=== PATIENT | female | born 1995 | race Caucasian/White ===

== ENCOUNTER → 2016-10-26 | Outpatient (CLI) | payer OTHER | LOC: OD 11:42 | PROVIDERS: ATTEND Obstetrics & Gynecology | DX: J11.1 Influenza due to unidentified influenza virus with other respiratory manifestations (principal); R70.0 Elevated erythrocyte sedimentation rate | CPT/HCPCS: 87070; 87804; 87880 ==

== ENCOUNTER 2016-10-31 17:36 | Outpatient (CLI) | payer OTHER ==
[2016-10-31 18:24] LABS: AMORPHOUS SEDIMENT,URINE TRACE /HPF; APPEARANCE,URINE CLOUDY; BILIRUBIN,URINE NEGATIVE (NEGATIVE); GLUCOSE, URINE NEGATIVE (NEGATIVE); KETONES,URINE TRACE mg/dL (NEGATIVE); LEUKOCYTE ESTERASE,URINE MODERATE (NEGATIVE); NITRITE,URINE NEGATIVE (NEGATIVE); PROTEIN,URINE NEGATIVE (NEGATIVE); URINE SPECIFIC GRAVITY 1.016
[2016-10-31 18:34] LABS: URINE BARBITURATES SCREEN NEGATIVE; URINE METHADONE SCREEN NEGATIVE; URINE OPIATES LOW NEGATIVE; URINE PHENCYCLIDINE SCREEN NEGATIVE
[2016-10-31 18:48] LABS: AMNISURE (ROM) NEGATIVE (NEGATIVE)
--- NOTE | 2016-10-31 20:01 | L&D Flow Sheet ---
LD Flowsheet Datetime Report Generated by CPN: 10/31/2016 20:00 Datetime: 10/31/2016 19:32 Patient Care IV/Blood Work: IV Started; IV Bolus Started (Marta Alberto, RN) Patient Care Comments: 18G left forearm (Marta Alberto, RN) Datetime: 10/31/2016 19:30 Uterine Activity Monitor Mode: External; Palpation (Marta Marlatt, RN) Frequency (min): 2-8 (Marta Marlatt, RN) Quality: Mild/Moderate (Marta Marlatt, RN) Duration (sec): 80-300 (Marta Marlatt, RN) Resting Tone (Palpate): Relaxed (Marta Marlatt, RN) Assessment A Monitor Mode: External US (Marta Marlatt, RN) FHR Baseline Rate : 140 (Marta Marlatt, RN) Variability: Moderate 6-25 bpm (Marta Marlatt, RN) Accelerations: 15X15 (Marta Marlatt, RN) Decelerations: None (Marta Alberto, RN) Datetime: 10/31/2016 19:29 Communication Communication: Call/Page Placed to Provider (Marta Alberto RN) Provider Notified (Name): Dr. Andrade (Marta Alberto RN) Notification Reason: Lab/Diagnostic Study (Marta Alberto RN) Communication Comments: MD reviewed ultrasound. Received order to hang her IV fluids and provider will recheck cervix after 2 hrs after first exam (Marta Alberto RN) Datetime: 10/31/2016 18:46 Uterine Activity Monitor Mode: External; Palpation (Marta Marlatt, RN) Frequency (min): 5 (Marta Marlatt, RN) Quality: Mild/Moderate (Marta Marlatt, RN) Duration (sec): 80-80 (Marta Marlatt, RN) Resting Tone (Palpate): Relaxed (Marta Marlatt, RN) Assessment A Monitor Mode: External US (Marta Marlatt, RN) FHR Baseline Rate : 135 (Marta Marlatt, RN) Variability: Moderate 6-25 bpm (Marta Marlatt, RN) Accelerations: 15X15 (Marta Marlatt, RN) Decelerations: None (Marta Marlatt, RN) Comments: monitors discontinued, patient to ultrasound (Marta Marlatt, RN) Datetime: 10/31/2016 18:42 NBP Sys/Cara/Mean (mmHg): 101 (QS system process) : 58 (QS system process) : 73 (QS system process) Pulse: 86 (QS system process) LaborFlag: Antepartum (QS system process) Datetime: 10/31/2016 18:35 Communication Communication: Provider Orders Received (Marta Alberto RN) Provider Notified (Name): Dr. Andrade (Marta Alberto RN) Notification Reason: Status Update; Status; Labor Status; Uterine Activity (Marta Marlatt, RN) Communication Comments: Order received for IVONNE and cervical length, IV bolus of 1L LR, and send urine for culture (Martaezra Alberto, RN) Datetime: 10/31/2016 18:34 Vaginal Exam Exam by: Dr. Andrade (Marta Alberto, RN) Vaginal Exam Comments: closed/thick/high (Marta Alberto, RN) Communication Communication: RN at Bedside; Provider at Bedside (Marta Alberto, RN) Datetime: 10/31/2016 18:30 Uterine Activity Monitor Mode: External (Marta Marlatt, RN) Frequency (min): 3-5 (Marta Marlatt, RN) Quality: Mild (Marta Marlatt, RN) Duration (sec): 100-140 (Marta Marlatt, RN) Resting Tone (Palpate): Relaxed (Marta Marlatt, RN) Assessment A Monitor Mode: External US (Marta Marlatt, RN) FHR Baseline Rate : 135 (Marta Marlatt, RN) Variability: Moderate 6-25 bpm (Marta Alberto, RN) Accelerations: 15X15 (Marta Alberto, RN) Decelerations: None (Mrata Alberto, RN) Datetime: 10/31/2016 18:20 Frequency (min): unknown (Marta Cassycoleenwally, RN) Pain Pain Scale: 2 (Marta Alberto RN) Pain Presence: Intermittent (Marta Alberto, RN) Pain Type: Cramping; Contraction (Marta Alberto, RN) Pain Location: Abdomen (Marta Alberto, RN) Pain Goal: 0 (Marta Alberto RN) Pain Coping: Talking Through Contractions (Marta Alberto, RN) Vaginal Bleeding: None (Marta Alberto, RN) Maternal Assessment Level of Consciousness: Fully Conscious (Marta Bowlestt, RN) DTR's/Clonus: DTRs 2+; No Clonus (Marta Marlatt, RN) Headache: Denies (Marta Maderalatt, RN) Breath Sounds, Left: Clear and Equal (Marta Marlatt, RN) Breath Sounds, Right: Clear and Equal (Marta Marlatt, RN) Nausea/Vomiting: Denies (Marta Marlatt, RN) RUQ Epigastric Pain: Denies (Marta Marlatt, RN) Teaching Instructional Method: Demo; Verbal; Patient Instructed; Family/Support Person Instructed; Verbalized Understanding (Marta Alberto RN) Plan of Care: Plan of Care Discussed (Marta Alberto RN) Unit Routine: [place] to Room; Call Jenkins; Bed; Monitoring (Marta Alberto RN) LaborFlag: Antepartum (QS system process) Datetime: 10/31/2016 18:11 NBP Sys/Cara/Mean (mmHg): 106 (QS system process) : 66 (QS system process) : 81 (QS system process) Pulse: 77 (QS system process) LaborFlag: Antepartum (QS system process) Datetime: 10/31/2016 18:07 Vital Signs Stage of : Antepartum (Marta Alberto, RN)
--- NOTE | 2016-10-31 21:05 | Non Stress Test Report ---
Non Stress Test Datetime Report Generated by CPN: 10/31/2016 21:05 DEMOGRAPHIC EGA NST: 33.5 INDICATION Indication for Study: Other Indication for Study (NST) Other: LC MONITORING Monitor Explained: Monitor Explained; Test Explained; Patient Verbalized Understanding Time on Monitor: 10/31/2016 19:18 Time off Monitor: 10/31/2016 20:50 NST Duration: 92 NST INTERVENTIONS NST Interventions: PO Hydration; IV Fluids Physician Notified NST: Dr. Andrade BABY A: [id number] BABY A Movement : Present Contraction Frequency : 3-10 FHR Baseline : 135 Accelerations : 15X15 Decelerations : None Variability : Moderate 6-25bpm NST Review: Meets Criteria for Reactive NST NST Review and Verified By : Milady Muhammad Rn NST Results: Reactive NST REPORT Report Trigger: Send Report
== END 2016-10-31 21:01 | disposition home or self-care (01) ==
LOC: LC 17:36
PROVIDERS: ATTEND Student in an Organized Health Care Education/Training Program
PROC: 4A1HXCZ Monitoring of Products of Conception, Cardiac Rate, External Approach (ICD-10-PCS; principal; 2016-10-31)
DX: O47.03 False labor before 37 completed weeks of gestation, third trimester (principal); Z3A.33 33 weeks gestation of pregnancy
CPT/HCPCS: 59025; 76815; 80307; 81001; 84112; 87086

== ENCOUNTER 2016-11-23 05:23 | Inpatient (IN) | payer OTHER ==
[2016-11-23 06:06] LABS: APPEARANCE,URINE CLOUDY; BILIRUBIN,URINE NEGATIVE (NEGATIVE); GLUCOSE, URINE NEGATIVE (NEGATIVE); KETONES,URINE NEGATIVE (NEGATIVE); LEUKOCYTE ESTERASE,URINE LARGE (NEGATIVE); NITRITE,URINE NEGATIVE (NEGATIVE); PROTEIN,URINE 30 mg/dL (NEGATIVE); URINE SPECIFIC GRAVITY 1.024; UROBILINOGEN,URINE NEGATIVE mg/dL (<2.0)
[2016-11-23 06:15] LABS: AMNISURE (ROM) POSITIVE (NEGATIVE)
[2016-11-23 06:27] LABS: URINE BARBITURATES SCREEN NEGATIVE; URINE METHADONE SCREEN NEGATIVE; URINE OPIATES LOW NEGATIVE; URINE PHENCYCLIDINE SCREEN NEGATIVE
[2016-11-23] MEDS ORDERED: RINGERS SOLUTION,LACTATED 1,000 ML IV ONE (06:31)
[2016-11-23 07:00] LABS: ABSOLUTE LYMPHOCYTES (AUTO) 1.6 10^3/uL (0.5-4.7); ABSOLUTE MONOCYTES (AUTO) 0.8 10^3/uL (0.1-1.4); ABSOLUTE NEUT (AUTO) 5.8 10^3/uL (1.7-8.2); BASOPHILS % (AUTO) 0.4 % (0-2); EOSINOPHILS % (AUTO) 0.5 % (0-6); HEMATOCRIT 37.7 % (36.0-47.0); HEMOGLOBIN 13.1 g/dL (12.0-15.5); HGB HCT DIFFERENCE 1.6; LYMPHOCYTES % (AUTO) 19.3 % (13-45); MEAN CORPUSCULAR HEMOGLOBIN 30.9 pg (27.0-33.4); MEAN CORPUSCULAR HGB CONC 34.8 g/dL (32.0-36.0); MEAN CORPUSCULAR VOLUME 89 fl (80-97); RED BLOOD COUNT 4.26 10^6/uL (3.72-5.28); RED CELL DISTRIBUTION WIDTH 12.5 % (11.5-14.0); SEGMENTED NEUTROPHILS % (AUTO) 69.8 % (42-78); WHITE BLOOD COUNT 8.4 10^3/uL (4.0-10.5)
[2016-11-23] MEDS ORDERED: MISOPROSTOL 0.1 MG TABLET PV SCH (07:00)
[2016-11-23] MEDS ORDERED: MISOPROSTOL 0.1 MG TABLET ONE ×2 (07:16→12:01)
[2016-11-23] MEDS: MISOPROSTOL 0.1 MG TABLET PO SCH ×3 (07:26→22:58)
--- NOTE | 2016-11-23 08:00 | L&D Flow Sheet ---
LD Flowsheet Datetime Report Generated by CPN: 11/23/2016 08:00 Datetime: 11/23/2016 07:46 NBP Sys/Cara/Mean (mmHg): 121 (QS system process) : 82 (QS system process) : 95 (QS system process) Pulse: 82 (QS system process) LaborFlag: Antepartum (QS system process) Datetime: 11/23/2016 07:17 NBP Sys/Cara/Mean (mmHg): 128 (QS system process) : 72 (QS system process) : 92 (QS system process) Pulse: 83 (QS system process) Respirations: 16 (Karmen Pickering RN) Temperature (F): 98.4 (Karmen Pickering RN) Temperature (C): 36.9 (QS system process) Temperature Route: Oral (Karmen Pickering RN) LaborFlag: Antepartum (QS system process) Datetime: 11/23/2016 07:12 Communication Communication: Report Given to @ Report given to Jamil Pickering . [facility] relinquished (Tara Menard RN) Datetime: 11/23/2016 07:00 Uterine Activity Monitor Mode: External; Palpation (Rucsandra Derian, RN) Frequency (min): 2-7 (Rucsandra Derian, RN) Quality: Mild/Moderate (Rucsandra Derian, RN) Duration (sec): 60-110 (Rucsandra Derian, RN) Resting Tone (Palpate): Relaxed (Rucsandra Derian, RN) Assessment A Monitor Mode: External US (Rucsandra Derian, RN) FHR Baseline Rate : 150 (Rucsandra Derian, RN) Variability: Moderate 6-25 bpm (Rucsandra Derian, RN) Accelerations: 15X15 (Rucsandra Derian, RN) Decelerations: None (Rucsandra Derian, RN) Datetime: 11/23/2016 06:50 Patient Care IV/Blood Work: IV Started; IV Infusing per Order; New IV Bag Hung (Tara Menard, RN) Patient Care Comments: 18G IV in RFA x3 attempts, pt tolerated well. (Tara Menard, RN) Datetime: 11/23/2016 06:47 Patient Care IV/Blood Work: Labs Drawn (Rucsandra Derian, RN) Datetime: 11/23/2016 06:42 Maternal Comments: lab at bedside for admission lab draws. (Rucsandra Derian, RN) Datetime: 11/23/2016 06:41 Maternal Comments: Consent forms signed and witnessed. (Rucsandra Derian, RN) Datetime: 11/23/2016 06:30 Uterine Activity Monitor Mode: External; Palpation (Rucsandra Derian, RN) Frequency (min): 7-10 (Rucsandra Derian, RN) Quality: Mild/Moderate (Rucsandra Derian, RN) Duration (sec): 70-160 (Rucsandra Derian, RN) Resting Tone (Palpate): Relaxed (Rucsandra Derian, RN) Assessment A Monitor Mode: External US (Rucsandra Derian, RN) FHR Baseline Rate : 140 (Rucsandra Derian, RN) Variability: Moderate 6-25 bpm (Rucsandra Derian, RN) Accelerations: 15X15 (Rucsandra Derian, RN) Decelerations: None (Rucsandra Derian, RN) Datetime: 11/23/2016 06:26 Maternal Comments: cephalic presentation confirmed by ultrasound by Dr. Beatty. (Rucsandra Derian, RN) Datetime: 11/23/2016 06:18 Vaginal Exam Dilatation (cm): 0.0 (Hermancsandra CorderoDerian, RN) Effacement (%): 0 (Rucsandra Derian, RN) Exam by: Dr. Beatty (Rucsandra Derian, RN) Datetime: 11/23/2016 06:16 NBP Sys/Cara/Mean (mmHg): 124 (QS system process) : 81 (QS system process) : 98 (QS system process) Pulse: 76 (QS system process) Communication Comments: Dr Beatty at bedside, strip reviewed. POC discussed with pt, pt agrees and V/U. (Tara Menard RN) LaborFlag: Antepartum (QS system process) Datetime: 11/23/2016 06:00 Uterine Activity Monitor Mode: External; Palpation (Tara Menard RN) Frequency (min): x1 (Tara Menard RN) Quality: Mild (Rucsandra Derian, RN) Duration (sec): 90 (Rucsandra Derian, RN) Resting Tone (Palpate): Relaxed (Rucsandra Derian, RN) Assessment A Monitor Mode: External US (Rucsandra Derian, RN) FHR Baseline Rate : 145 (Rucsandra Derian, RN) Variability: Moderate 6-25 bpm (Rucsandra Derian, RN) Accelerations: 15X15 (Rucsandra Derian, RN) Decelerations: None (Rucsandra Derian, RN) Datetime: 11/23/2016 05:50 Frequency (min): irregular (Rucsandra Derian, RN) Pain Pain Scale: 1 (Rurainaandra Menard, RN) Pain Presence: Intermittent (Rucsandra Derian, RN) Pain Type: Cramping (Rucsandra Derian, RN) Pain Location: Abdomen (Rucsandra Derian, RN) Pain Goal: 1 (Rucsandra Derian, RN) Pain Coping: Talking Through Contractions (Annotations: pt talking without difficulty. No signs of distress noted. ) (Rucsandra Derian, RN) Vaginal Bleeding: None (Rucsandra Derian, RN) Maternal Assessment Level of Consciousness: Fully Conscious (Rucsandra Derian, RN) DTR's/Clonus: DTRs 2+; No Clonus (Rucsandra Derian, RN) Headache: Denies (Rucsandra Derian, RN) Breath Sounds, Left: Clear and Equal (Rucsandra Derian, RN) Breath Sounds, Right: Clear and Equal (Rucsandra Derian, RN) Nausea/Vomiting: Present (Rucsandra Derian, RN) RUQ Epigastric Pain: Denies (Rucsandra Derian, RN) LaborFlag: Antepartum (QS system process) Datetime: 11/23/2016 05:49 Patient Care Comments: Amnisure collected and sent to lab (Tara Menard, RN) Datetime: 11/23/2016 05:46 NBP Sys/Cara/Mean (mmHg): 118 (QS system process) : 81 (QS system process) : 94 (QS system process) Pulse: 83 (QS system process) Temperature (F): 98.1 (Tara Menard, RN) Temperature (C): 36.7 (QS system process) LaborFlag: Antepartum (QS system process) Datetime: 11/23/2016 05:44 Patient Position/Activity: Left Lateral (Tara Menard, RN) Datetime: 11/23/2016 05:43 Vital Signs Stage of : Antepartum (Tara Menard, RN)
--- NOTE | 2016-11-23 10:00 | L&D Flow Sheet ---
LD Flowsheet Datetime Report Generated by CPN: 11/23/2016 10:00 Datetime: 11/23/2016 09:30 Monitor Mode: External US (Karmen Marhefka, RN) FHR Baseline Rate : 150 (Karmen Marhefka, RN) FHR Baseline Changes: No Baseline Change (Karmen Marhefka, RN) Variability: Moderate 6-25 bpm (Karmen Marhefka, RN) Accelerations: 15X15 (Karmen Marhefka, RN) Decelerations: None (Karmen Marhefka, RN) Datetime: 11/23/2016 09:05 Patient Care Comments: Pt walking @ bedside (Karmen Ladan, RN) Datetime: 11/23/2016 09:02 I/O Interventions: Up to BR (Karmen Ladan, RN) Datetime: 11/23/2016 09:01 IV/Blood Work: IV Saline Locked (Karmen Ladan, RN) Datetime: 11/23/2016 09:00 Monitor Mode: External US (Karmen Marhefka, RN) FHR Baseline Rate : 145 (Karmen Marhefka, RN) FHR Baseline Changes: No Baseline Change (Karmen Marhefka, RN) Variability: Moderate 6-25 bpm (Karmen Marhefka, RN) Accelerations: 15X15 (Karmen Marhefka, RN) Decelerations: None (Karmen Marhefka, RN) Datetime: 11/23/2016 08:47 NBP Sys/Cara/Mean (mmHg): 121 (QS system process) : 79 (QS system process) : 96 (QS system process) Pulse: 75 (QS system process) LaborFlag: Antepartum (QS system process) Datetime: 11/23/2016 08:36 Pain Assessment Comments: Heat pack provided to pt upon request for back cramping. (Karmen Marhefka, RN) LaborFlag: Antepartum (QS system process) Datetime: 11/23/2016 08:30 Monitor Mode: External (Karmen Marhefka, RN) Frequency (min): 1-5 (Karmen Marhefka, RN) Quality: Mild (Karmen Marhefka, RN) Duration (sec): 40-150 (Karmen Marhefka, RN) Resting Tone (Palpate): Relaxed (Karmen Marhefka, RN) Monitor Mode: External US (Karmen Marhefka, RN) FHR Baseline Rate : 145 (Karmen Marhefka, RN) FHR Baseline Changes: No Baseline Change (Karmen Marhefka, RN) Variability: Moderate 6-25 bpm (Karmen Marhefka, RN) Accelerations: 15X15 (Karmen Marhefka, RN) Decelerations: None (Karmen Marhefka, RN) Datetime: 11/23/2016 08:18 NBP Sys/Cara/Mean (mmHg): 133 (QS system process) : 85 (QS system process) : 104 (QS system process) Pulse: 83 (QS system process) LaborFlag: Antepartum (QS system process) Datetime: 11/23/2016 08:00 Monitor Mode: External (Karmen Pickering, RN) Frequency (min): 1-6 (Karmen Pickering RN) Quality: Mild (Karmen Pickering, RN) Duration (sec): 40-160 (Karmen Pickering, RN) Resting Tone (Palpate): Relaxed (Karmen Pickering, RN) Monitor Mode: External US (Karmen Pickering, RN) FHR Baseline Rate : 145 (Karmen Pickering RN) FHR Baseline Changes: No Baseline Change (Karmen Pickering, RN) Variability: Moderate 6-25 bpm (Karmen Pickering, RN) Accelerations: 15X15 (Karmen Pickering, RN) Decelerations: None (Karmen Pickering, RN)
--- NOTE | 2016-11-23 12:00 | L&D Flow Sheet ---
LD Flowsheet Datetime Report Generated by CPN: 11/23/2016 12:00 Datetime: 11/23/2016 11:30 Monitor Mode: External (Karmen Marhefka, RN) Frequency (min): 1-2 (Karmen Marhefka, RN) Quality: Mild (Karmen Marhefka, RN) Duration (sec): 40-70 (Karmen Marhefka, RN) Pattern: Tachysystole: > 5 Contractions in 10 Minutes (Karmen Marhefka, RN) Resting Tone (Palpate): Relaxed (Karmen Marhefka, RN) Monitor Mode: External US (Karmen Marhefka, RN) FHR Baseline Rate : 150 (Karmen Marhefka, RN) FHR Baseline Changes: No Baseline Change (Karmen Marhefka, RN) Variability: Moderate 6-25 bpm (Karmen Marhefka, RN) Accelerations: 15X15 (Karmen Marhefka, RN) Decelerations: None (Karmen Marhefka, RN) Datetime: 11/23/2016 11:00 Monitor Mode: External (Karmen Marhefka, RN) Frequency (min): 30-90 (Karmen Marhefka, RN) Quality: Mild (Karmen Marhefka, RN) Duration (sec): 1-2 (Karmen Marhefka, RN) Pattern: Tachysystole: > 5 Contractions in 10 Minutes (Karmen Marhefka, RN) Resting Tone (Palpate): Relaxed (Karmen Marhefka, RN) Monitor Mode: External US (Karmen Marhefka, RN) FHR Baseline Rate : 150 (Karmen Marhefka, RN) FHR Baseline Changes: No Baseline Change (Karmen Marhefka, RN) Variability: Moderate 6-25 bpm (Karmen Marhefka, RN) Accelerations: 15X15 (Karmen Marhefka, RN) Decelerations: None (Karmen Marhefka, RN) Datetime: 11/23/2016 10:30 Respirations: 18 (Coco Guadalupe RNC) Temperature (F): 98.9 (Coco Guadalupe RNC) Temperature (C): 37.2 (QS system process) Monitor Mode: External (Karmen Marhefka, RN) Frequency (min): 1-2 (Karmen Marhefka, RN) Quality: Mild (Karmen Marhefka, RN) Duration (sec): 40-70 (Karmen Marhefka, RN) Pattern: Tachysystole: > 5 Contractions in 10 Minutes (Karmen Marhefka, RN) Resting Tone (Palpate): Relaxed (Karmen Marhefka, RN) Monitor Mode: External US (Karmen Marhefka, RN) FHR Baseline Rate : 155 (Karmen Marhefka, RN) FHR Baseline Changes: No Baseline Change (Karmen Marhefka, RN) Variability: Moderate 6-25 bpm (Karmen Marhefka, RN) Accelerations: 15X15 (Karmen Marhefka, RN) Decelerations: None (Karmen Marhefka, RN) IV/Blood Work: IV Bolus Started (CARMEN Vergara) LaborFlag: Antepartum (QS system process) Datetime: 11/23/2016 10:00 Monitor Mode: External (Karmen Marhefka, RN) Frequency (min): 1-2 (Karmen Marhefka, RN) Quality: Mild (Karmen Marhefka, RN) Duration (sec): 40-80 (Karmen Marhefka, RN) Pattern: Tachysystole: > 5 Contractions in 10 Minutes (Karmen Marhefka, RN) Resting Tone (Palpate): Relaxed (Karmen Marhefka, RN) Monitor Mode: External US (Karmen Marhefka, RN) FHR Baseline Rate : 155 (Karmen Pickering RN) FHR Baseline Changes: No Baseline Change (Karmen Pickering RN) Variability: Moderate 6-25 bpm (Karmen Pickering RN) Accelerations: 15X15 (Karmen Pickering RN) Decelerations: None (Karmen Pickering RN)
[2016-11-23] MEDS ORDERED: ONDANSETRON HCL INJ/PF 4 MG/2 ML SDV ONE (13:08)
[2016-11-23] MEDS ORDERED: NALBUPHINE HCL INJ 10 MG/1 ML AMPULE ONE (13:08)
[2016-11-23] MEDS ORDERED: ONDANSETRON HCL INJ/PF 4 MG/2 ML SDV IV ONE (13:24)
[2016-11-23] MEDS ORDERED: NALBUPHINE HCL INJ 10 MG/1 ML AMPULE INJ ONE (13:24)
--- NOTE | 2016-11-23 14:00 | L&D Flow Sheet ---
LD Flowsheet Datetime Report Generated by CPN: 11/23/2016 14:00 Datetime: 11/23/2016 13:16 NBP Sys/Cara/Mean (mmHg): 118 (QS system process) : 57 (QS system process) : 82 (QS system process) Pulse: 82 (QS system process) LaborFlag: Antepartum (QS system process) Datetime: 11/23/2016 13:13 Analgesics/Sedatives: Nubain (mg) @ 10 (Karmen Pickering RN) Antiemetics/Antacids: Zofran IV (mg) @ 4 (Karmen Pickering RN) Datetime: 11/23/2016 13:10 Pain Scale: 3 (Karmen Pickering RN) Pain Presence: Intermittent (Karmen Pickering RN) Pain Type: Cramping; Ache (Karmen Pickering RN) Pain Location: Abdomen; Back (Karmen Pickering RN) Pain Relief Measures: Comfort Measures (Karmen Pickering RN) Pain Coping: Talking Through Contractions; Requesting Pain Medication or Epidural (Karmen Pickering RN) Comfort Measures: Breathing/Relaxation (Karmen Pickering RN) LaborFlag: Antepartum (QS system process) Datetime: 11/23/2016 13:00 Monitor Mode: External; Palpation (Karmen Pickering RN) Frequency (min): 1-3 (Karmen Pickering RN) Quality: Mild (Karmen Pickering RN) Duration (sec): 40-70 (Karmen Marhefka, RN) Pattern: Tachysystole: > 5 Contractions in 10 Minutes (Karmen Marraulfka, RN) Resting Tone (Palpate): Relaxed (Karmencris Hillfka, RN) Monitor Mode: External US (Karmen Pickering, RN) FHR Baseline Rate : 140 (Karmen Marhefka, RN) FHR Baseline Changes: No Baseline Change (Karmen Marhefka, RN) Variability: Moderate 6-25 bpm (Karmen Marhefka, RN) Accelerations: 15X15 (Karmen Marhefka, RN) Decelerations: None (Karmen Marhefka, RN) Datetime: 11/23/2016 12:30 Temperature (F): 99.0 (Karmen Pickering, RN) Temperature (C): 37.2 ( system process) Temperature Route: Oral (Karmen Lizfka, RN) Monitor Mode: External (Karmen Hillfka, RN) Frequency (min): 1-3 (Karmen Lizfka, RN) Quality: Mild (Karmen Marhefka, RN) Duration (sec): 40-110 (Karmen Marhefka, RN) Pattern: Tachysystole: > 5 Contractions in 10 Minutes (Karmen Marhefka, RN) Resting Tone (Palpate): Relaxed (Karmen Lizfka, RN) Monitor Mode: External US (Karmen Pickering, RN) FHR Baseline Rate : 140 (Karmen Marhefka, RN) FHR Baseline Changes: No Baseline Change (Karmen Marhefka, RN) Variability: Moderate 6-25 bpm (Karmen Marhefka, RN) Accelerations: 15X15 (Karmen Marhefka, RN) Decelerations: None (Karmen Pickering RN) LaborFlag: Antepartum (QS system process) Datetime: 11/23/2016 12:06 NBP Sys/Cara/Mean (mmHg): 123 (QS system process) : 73 (QS system process) : 92 (QS system process) Pulse: 75 (QS system process) LaborFlag: Antepartum (QS system process) Datetime: 11/23/2016 12:04 Exam by: Dr. Beatty (Karmen Pickering RN) Vaginal Exam Comments: 1/thick/high (Karmen Pickering RN) Cervical Ripening Agents: Cytotec @ 25 MCG PV (Karmen Pickering RN) Datetime: 11/23/2016 12:00 Monitor Mode: External (Karmen Pickering RN) Frequency (min): 1-2 (Karmen Pickering RN) Quality: Mild (Karmen Pickering RN) Duration (sec): 40-70 (Karmen Pickering RN) Pattern: Tachysystole: > 5 Contractions in 10 Minutes (Karmen Pickering RN) Resting Tone (Palpate): Relaxed (Karmen Pickering RN) Monitor Mode: External US (Karmen Pickering RN) FHR Baseline Rate : 145 (Karmen Pickering RN) FHR Baseline Changes: No Baseline Change (Karmen Pickering RN) Variability: Moderate 6-25 bpm (Karmen Pickering RN) Accelerations: 15X15 (Karmen Pickering RN) Decelerations: None (Karmen Pickering RN)
--- NOTE | 2016-11-23 16:00 | L&D Flow Sheet ---
LD Flowsheet Datetime Report Generated by CPN: 11/23/2016 16:00 Datetime: 11/23/2016 15:30 Monitor Mode: External (Karmen Marhefka, RN) Frequency (min): 1-3 (Karmen Marhefka, RN) Quality: Mild (Karmen Marhefka, RN) Duration (sec): 40-100 (Karmen Marhefka, RN) Pattern: Tachysystole: > 5 Contractions in 10 Minutes (Karmen Marhefka, RN) Resting Tone (Palpate): Relaxed (Karmen Marhefka, RN) Monitor Mode: External US (Karmen Marhefka, RN) FHR Baseline Rate : 120 (Karmen Marhefka, RN) FHR Baseline Changes: No Baseline Change (Karemn Marhefka, RN) Variability: Moderate 6-25 bpm (Karmen Marhefka, RN) Accelerations: 15X15 (Karmen Marhefka, RN) Decelerations: None (Karmen Marhefka, RN) Datetime: 11/23/2016 15:00 Monitor Mode: External (Karmen Marhefka, RN) Frequency (min): 1-3 (Karmen Marhefka, RN) Quality: Mild (Karmen Marhefka, RN) Duration (sec): 40-90 (Karmen Marhefka, RN) Pattern: Tachysystole: > 5 Contractions in 10 Minutes (Karmen Marhefka, RN) Resting Tone (Palpate): Relaxed (Karmen Marhefka, RN) Monitor Mode: External US (Karmen Marhefka, RN) FHR Baseline Rate : 125 (Karmen Marhefka, RN) FHR Baseline Changes: No Baseline Change (Karmen Marhefka, RN) Variability: Moderate 6-25 bpm (Karmen Marhefka, RN) Accelerations: None (Karmen Marhefka, RN) Decelerations: None (Karmen Marhefka, RN) Datetime: 11/23/2016 14:30 Monitor Mode: External (Karmen Marhefka, RN) Frequency (min): 1-3 (Karmen Marhefka, RN) Quality: Mild (Karmen Lizfka, RN) Duration (sec): 40-70 (Karmen Lizfka, RN) Pattern: Tachysystole: > 5 Contractions in 10 Minutes (Karmne Hillfka, RN) Resting Tone (Palpate): Relaxed (Karmen Hillfka, RN) Monitor Mode: External US (Karmen Pickering, RN) FHR Baseline Rate : 125 (Karmen Pickering, RN) FHR Baseline Changes: No Baseline Change (Karmen Hillfka, RN) Variability: Moderate 6-25 bpm (Karmen Marraulfka, RN) Accelerations: 15X15 (Karmen Marhefka, RN) Decelerations: None (Karmen Marraulfka, RN) Datetime: 11/23/2016 14:23 Monitor Interventions for UA: [place] Adjusted (Karmen Pickering, RN) Monitor Interventions for FHR: Ultrasound Adjusted (Karmen Hillfka, RN) Datetime: 11/23/2016 14:18 Patient Care Comments: Pt standing at bedside (Karmen Pickering, RN) Datetime: 11/23/2016 14:14 I/O Interventions: Up to BR (Karmen Pickering, RN) Datetime: 11/23/2016 14:13 NBP Sys/Cara/Mean (mmHg): 119 (QS system process) : 57 (QS system process) : 82 (QS system process) Pulse: 62 (QS system process) LaborFlag: Antepartum (QS system process) Datetime: 11/23/2016 14:10 Cervical Ripening Agents: Cytotec @ 50 MCG PO (Karmen Pickering RN) Datetime: 11/23/2016 14:00 Monitor Mode: External; Palpation (Karmen Pickering RN) Frequency (min): 1-3 (Karmen Pickering RN) Quality: Mild (Karmen Pickering RN) Duration (sec): 40-70 (Karmen Pickering RN) Pattern: Tachysystole: > 5 Contractions in 10 Minutes (Karmen Pickering RN) Resting Tone (Palpate): Relaxed (Karmen Pickering RN) Monitor Mode: External US (Karmen Pickering RN) FHR Baseline Rate : 130 (Karmen Pickering RN) FHR Baseline Changes: No Baseline Change (Karmen Pickering RN) Variability: Moderate 6-25 bpm (Karmen Pickering RN) Accelerations: 15X15 (Karmen Pickering RN) Decelerations: None (Karmen Pickering RN)
[2016-11-23] MEDS ORDERED: EPHEDRINE SULFATE INJ 50 MG/1 ML AMPULE ONE (17:03)
[2016-11-23] MEDS ORDERED: BUPIVACAINE HCL 0.25 % INJ/PF (2.5 MG/1 ML) 30 ML VIAL ONE (17:03)
[2016-11-23] MEDS ORDERED: FENTANYL/BUPIVACAINE/NS/PF 200 MCG/100 ML RTUINJ EPI ONE (17:03)
[2016-11-23] MEDS ORDERED: BUPIVACAINE HCL 0.25 % INJ/PF (2.5 MG/1 ML) 30 ML VIAL INFIL ONE (17:04)
[2016-11-23] MEDS ORDERED: FENTANYL/BUPIVACAINE/NS/PF 100 ML EPI PRN (17:04)
[2016-11-23] MEDS ORDERED: BENZOIN/ALOE VERA/STORAX/TOLU TINCTURE 60 ML TP PRN (17:04)
[2016-11-23] MEDS: RINGERS SOLUTION,LACTATED 1,000 ML IV PRN (17:12)
--- NOTE | 2016-11-23 18:00 | L&D Flow Sheet ---
LD Flowsheet Datetime Report Generated by CPN: 11/23/2016 18:00 Datetime: 11/23/2016 17:47 NBP Sys/Cara/Mean (mmHg): 108 (QS system process) : 57 (QS system process) : 77 (QS system process) Pulse: 71 (QS system process) LaborFlag: Antepartum (QS system process) Datetime: 11/23/2016 17:46 NBP Sys/Cara/Mean (mmHg): 113 (QS system process) : 55 (QS system process) : 77 (QS system process) Pulse: 69 (QS system process) LaborFlag: Antepartum (QS system process) Datetime: 11/23/2016 17:45 NBP Sys/Cara/Mean (mmHg): 115 (QS system process) : 60 (QS system process) : 80 (QS system process) Pulse: 65 (QS system process) LaborFlag: Antepartum (QS system process) Datetime: 11/23/2016 17:44 NBP Sys/Cara/Mean (mmHg): 112 (QS system process) : 53 (QS system process) : 77 (QS system process) Pulse: 65 (QS system process) LaborFlag: Antepartum (QS system process) Datetime: 11/23/2016 17:42 NBP Sys/Cara/Mean (mmHg): 119 (QS system process) NBP Sys/Cara/Mean (mmHg): 111 (QS system process) : 63 (QS system process) : 56 (QS system process) : 85 (QS system process) : 80 (QS system process) Pulse: 71 (QS system process) I/O Interventions: Egan Cath Inserted (Karmen Pickering RN) LaborFlag: Antepartum (QS system process) Datetime: 11/23/2016 17:40 NBP Sys/Cara/Mean (mmHg): 111 (QS system process) : 55 (QS system process) : 79 (QS system process) Pulse: 88 (QS system process) LaborFlag: Antepartum (QS system process) Datetime: 11/23/2016 17:39 NBP Sys/Cara/Mean (mmHg): 115 (QS system process) : 56 (QS system process) : 80 (QS system process) Pulse: 80 (QS system process) LaborFlag: Antepartum (QS system process) Datetime: 11/23/2016 17:38 NBP Sys/Cara/Mean (mmHg): 120 (QS system process) NBP Sys/Cara/Mean (mmHg): 125 (QS system process) : 59 (QS system process) : 58 (QS system process) : 84 (QS system process) : 83 (QS system process) Pulse: 70 (QS system process) Pulse: 72 (QS system process) LaborFlag: Antepartum (QS system process) Datetime: 11/23/2016 17:37 NBP Sys/Cara/Mean (mmHg): 121 (QS system process) : 56 (QS system process) : 79 (QS system process) Pulse: 80 (QS system process) LaborFlag: Antepartum (QS system process) Datetime: 11/23/2016 17:36 NBP Sys/Cara/Mean (mmHg): 116 (QS system process) : 76 (QS system process) : 91 (QS system process) Pulse: 77 (QS system process) LaborFlag: Antepartum (QS system process) Datetime: 11/23/2016 17:34 NBP Sys/Cara/Mean (mmHg): 126 (QS system process) : 73 (QS system process) : 93 (QS system process) Pulse: 76 (QS system process) LaborFlag: Antepartum (QS system process) Datetime: 11/23/2016 17:33 NBP Sys/Cara/Mean (mmHg): 124 (QS system process) : 82 (QS system process) : 97 (QS system process) Pulse: 75 (QS system process) Epidural Procedure: Cath Placed (Karmen Pickering RN) LaborFlag: Antepartum (QS system process) Datetime: 11/23/2016 17:32 NBP Sys/Cara/Mean (mmHg): 128 (QS system process) : 85 (QS system process) : 102 (QS system process) Pulse: 71 (QS system process) Epidural Procedure: Test Dose (Karmen Pickering RN) LaborFlag: Antepartum (QS system process) Datetime: 11/23/2016 17:30 Procedure Verify: Correct Patient Identity; Correct Side and Site are Marked; Accurate Procedure Consent Form; Agreement on Procedure to be Done; Correct Patient Position; Relevant Images and Results are Properly Labeled and Displayed; Addressed Need to Administer Antibiotics or Fluids for Irrigation; Safety Precautions Based on Patient History or Medication Use (Karmen Pickering RN) Anesthesia Plans: Epidural (Karmne Pickering RN) Epidural Positioning: Sitting (Karmen Pickering RN) Datetime: 11/23/2016 17:29 Pulse: 76 (QS system process) SpO2 (%): 99 (QS system process) LaborFlag: Antepartum (QS system process) Datetime: 11/23/2016 17:28 Procedure Verify: Correct Patient Identity; Correct Side and Site are Marked; Accurate Procedure Consent Form; Agreement on Procedure to be Done; Correct Patient Position; Relevant Images and Results are Properly Labeled and Displayed; Addressed Need to Administer Antibiotics or Fluids for Irrigation; Safety Precautions Based on Patient History or Medication Use (Karmen Pickering RN) Anesthesia Plans: Epidural (Karmen Pickering RN) Epidural Positioning: Sitting (Karmen Pickering RN) Datetime: 11/23/2016 17:26 Anesthesia Comments: Dr. Costa @ bedside (Karmen Pickering RN) Datetime: 11/23/2016 17:24 Procedure Verify: Correct Patient Identity; Correct Side and Site are Marked; Accurate Procedure Consent Form; Agreement on Procedure to be Done; Correct Patient Position; Relevant Images and Results are Properly Labeled and Displayed; Addressed Need to Administer Antibiotics or Fluids for Irrigation; Safety Precautions Based on Patient History or Medication Use (Karmen Pickering RN) Anesthesia Plans: Epidural (Karmen Pickering RN) Epidural Positioning: Sitting (Karmen Pickering RN) Datetime: 11/23/2016 17:04 NBP Sys/Cara/Mean (mmHg): 133 (QS system process) : 87 (QS system process) : 105 (QS system process) Pulse: 66 (QS system process) LaborFlag: Antepartum (QS system process) Datetime: 11/23/2016 16:51 Pain Scale: 4 (Karmen Pickering RN) Pain Presence: Intermittent (Karmen Pickering RN) Pain Type: Contraction (Karmen Pickering RN) Pain Location: Abdomen (Karmen Pickering RN) Pain Goal: 0 (Karmen Pickering RN) Pain Relief Measures: Comfort Measures (Karmen Pickering RN) Pain Coping: Breathing Through Contractions; Requesting Pain Medication or Epidural; Crying (Karmen Pickering RN) IV/Blood Work: IV Bolus Started (Karmen Pickering RN) Comfort Measures: Breathing/Relaxation (Karmen Pickering RN) LaborFlag: Antepartum (QS system process) Datetime: 11/23/2016 16:44 Dilatation (cm): 1.5 (Karmen Pickering RN) Effacement (%): 75 (Karmen Pickering RN) Station: -2 (Karmen Pickering RN) Exam by: Dr. Beatty (Karmen Pickering RN) Vaginal Bleeding: Scant (Karmen Pickering RN) Cervix, Consistency: Soft (Karmen Pickering RN) Cervix, Position: Midposition (Karmen Pickering, RN) Datetime: 11/23/2016 16:09 NBP Sys/Cara/Mean (mmHg): 114 (QS system process) : 74 (QS system process) : 89 (QS system process) Pulse: 65 (QS system process) LaborFlag: Antepartum (QS system process) Datetime: 11/23/2016 16:00 Monitor Mode: External (Karmen Pickering RN) Frequency (min): 1-5 (Karmen Pickering RN) Quality: Mild (Karmen Pickering RN) Duration (sec): 40-60 (Karmen Pickeirng RN) Pattern: Tachysystole: > 5 Contractions in 10 Minutes (Karmen Pickering RN) Resting Tone (Palpate): Relaxed (Karmen Pickering RN) Monitor Mode: External US (Karmen Pickering RN) FHR Baseline Rate : 125 (Karmen Pickering RN) FHR Baseline Changes: No Baseline Change (Karmen Pickering RN) Variability: Moderate 6-25 bpm (Karmen Pickering RN) Accelerations: None (Karmen Pickering RN) Decelerations: None (Karmen Pickering RN)
[2016-11-23] MEDS ORDERED: OXYTOCIN/NORMAL SALINE 20 UNIT/1,000 ML RTUINJ ONE (18:20)
--- NOTE | 2016-11-23 20:00 | L&D Flow Sheet ---
LD Flowsheet Datetime Report Generated by CPN: 11/23/2016 20:00 Datetime: 11/23/2016 19:55 I/O Interventions: Popsicle (Rucsandra Derian, RN) Datetime: 11/23/2016 19:49 NBP Sys/Cara/Mean (mmHg): 105 (QS system process) : 68 (QS system process) : 82 (QS system process) Pulse: 70 (QS system process) LaborFlag: Antepartum (QS system process) Datetime: 11/23/2016 19:45 Monitor Mode: External; Palpation (Rucsandra Derian, RN) Frequency (min): 1.5-2 (Rucsandra Derian, RN) Quality: Mild/Moderate (Rucsandra Derian, RN) Duration (sec): 50-80 (Rucsandra Derian, RN) Resting Tone (Palpate): Relaxed (Rucsandra Derian, RN) Monitor Mode: External US (Rucsandra Derian, RN) FHR Baseline Rate : 145 (Rucsandra Derian, RN) Variability: Moderate 6-25 bpm (Rucsandra Derian, RN) Accelerations: None (Rucsandra Derian, RN) Decelerations: None (Rucsandra Derian, RN) Datetime: 11/23/2016 19:43 Maternal Comments: [place] emptied 500ml of clear yellow urine. (Rucsandra Derian, RN) Datetime: 11/23/2016 19:36 Patient Position/Activity: Left Lateral (Tara Menard, RN) Datetime: 11/23/2016 19:33 NBP Sys/Cara/Mean (mmHg): 102 (QS system process) : 58 (QS system process) : 75 (QS system process) Pulse: 66 (QS system process) LaborFlag: Antepartum (QS system process) Datetime: 11/23/2016 19:30 Temperature (F): 98.0 (Tara Menard RN) Temperature (C): 36.7 (QS system process) Monitor Mode: External; Palpation (Tara Menard RN) Frequency (min): 1-2.5 (Tara Menard RN) Quality: Mild/Moderate (Tara Menard RN) Duration (sec): 50-90 (Tara Menard RN) Resting Tone (Palpate): Relaxed (Tara Menard RN) Monitor Mode: External US (Tara Menard RN) FHR Baseline Rate : 145 (Tara Menard RN) Variability: Moderate 6-25 bpm (Tara Menard RN) Accelerations: None (Tara Menard RN) Decelerations: None (Tara Menard RN) Level of Consciousness: Fully Conscious (Tara Menard RN) DTR's/Clonus: DTRs 1+; No Clonus (Tara Menard RN) Headache: Denies (Tara Menard RN) Breath Sounds, Left: Clear and Equal (Tara Menard RN) Breath Sounds, Right: Clear and Equal (Tara Menard RN) Nausea/Vomiting: Denies (Tara Menard RN) RUQ Epigastric Pain: Denies (Tara Menard RN) Pitocin (milliunit): Pitocin Remains (milliunits) @ 2 (Tara Menard RN) LaborFlag: Antepartum (QS system process) Datetime: 11/23/2016 19:18 NBP Sys/Cara/Mean (mmHg): 107 (QS system process) : 63 (QS system process) : 80 (QS system process) Pulse: 65 (QS system process) LaborFlag: Antepartum (QS system process) Datetime: 11/23/2016 19:15 Monitor Mode: External (Karmen Marhefka, RN) Frequency (min): 1-3 (Karmen Marhefka, RN) Quality: Mild (Karmen Marhefka, RN) Duration (sec): 50-100 (Karmen Marhefka, RN) Resting Tone (Palpate): Relaxed (Karmen Marhefka, RN) Monitor Mode: External US (Karmen Marhefka, RN) FHR Baseline Rate : 140 (Karmen Marhefka, RN) FHR Baseline Changes: No Baseline Change (Karmen Marhefka, RN) Variability: Moderate 6-25 bpm (Karmen Marhefka, RN) Accelerations: None (Karmen Marhefka, RN) Decelerations: Late (Karmen Marhefka, RN) Pitocin (milliunit): Pitocin Remains (milliunits) @ (Annotations: 2) (Karmen Marhefka, RN) Datetime: 11/23/2016 19:14 Communication Comments: Report given to A. Derian, RN. Care relinquished @ this time. (Karmen Pickering RN) Datetime: 11/23/2016 19:04 NBP Sys/Cara/Mean (mmHg): 103 (QS system process) : 58 (QS system process) : 78 (QS system process) Pulse: 66 (QS system process) LaborFlag: Antepartum (QS system process) Datetime: 11/23/2016 19:00 Monitor Mode: External (Karmen Pickering RN) Frequency (min): 1-4 (Karmen Pickering RN) Quality: Mild (Karmen Pickering RN) Duration (sec): 60-100 (Karmen Pickering RN) Resting Tone (Palpate): Relaxed (Karmen Pickering RN) Monitor Mode: External US (Karmen Pickering RN) FHR Baseline Rate : 140 (Karmen Pickering RN) FHR Baseline Changes: No Baseline Change (Karmen Pickering RN) Variability: Moderate 6-25 bpm (Karmen Marhefka, RN) Accelerations: None (Karmen Marhefka, RN) Decelerations: Late (Karmen Lizfka, RN) Pitocin (milliunit): Pitocin Remains (milliunits) @ (Annotations: 2) (Karmen Marraulfka, RN) Datetime: 11/23/2016 18:49 NBP Sys/Cara/Mean (mmHg): 111 (QS system process) : 70 (QS system process) : 85 (QS system process) Pulse: 68 (QS system process) LaborFlag: Antepartum (QS system process) Datetime: 11/23/2016 18:45 Monitor Mode: External (Karmen Pickering RN) Frequency (min): 1-3 (Karmen Pickering RN) Quality: Mild (Karmen Huntka, RN) Duration (sec): 40-110 (Karmen Pickering, RN) Resting Tone (Palpate): Relaxed (Karmen Pickering RN) Monitor Mode: External US (Karmen Marhefka, RN) FHR Baseline Rate : 135 (Karmen Marhefka, RN) FHR Baseline Changes: No Baseline Change (Kramen Marhefka, RN) Variability: Moderate 6-25 bpm (Karmen Marhefka, RN) Accelerations: None (Karmen Marhefka, RN) Decelerations: None (Karmen Marhefka, RN) Pitocin (milliunit): Pitocin Remains (milliunits) @ (Annotations: 2) (Kamren Marhefka, RN) Datetime: 11/23/2016 18:34 NBP Sys/Cara/Mean (mmHg): 108 (QS system process) : 59 (QS system process) : 79 (QS system process) Pulse: 67 (QS system process) LaborFlag: Antepartum (QS system process) Datetime: 11/23/2016 18:30 Monitor Mode: External (Karmen Marhefka, RN) Frequency (min): 1-2 (Karmen Marhefka, RN) Quality: Mild (Karmen Marhefka, RN) Duration (sec): 60-110 (Karmen Marhefka, RN) Resting Tone (Palpate): Relaxed (Karmen Marhefka, RN) Monitor Mode: External US (Karmen Marhefka, RN) FHR Baseline Rate : 140 (Karmen Marhefka, RN) FHR Baseline Changes: No Baseline Change (Karmen Marhefka, RN) Variability: Moderate 6-25 bpm (Karmen Marhefka, RN) Accelerations: None (Karmen Marhefka, RN) Decelerations: None (Karmen Marhefka, RN) Datetime: 11/23/2016 18:25 Pitocin (milliunit): Pitocin Started (milliunits) @ 2 (Karmen Marhefka, RN) Datetime: 11/23/2016 18:19 NBP Sys/Cara/Mean (mmHg): 104 (QS system process) : 65 (QS system process) : 78 (QS system process) Pulse: 65 (QS system process) Respirations: 16 (Karmen Marhefka, RN) Temperature (F): 97.6 (Karmen Marhefka, RN) Temperature (C): 36.4 (QS system process) Temperature Route: Oral (Karmen Marhefka, RN) LaborFlag: Antepartum (QS system process) Datetime: 11/23/2016 18:15 Monitor Mode: External (Karmen Marhefka, RN) Frequency (min): 1-3 (Karmen Marhefka, RN) Quality: Mild/Moderate (Karmen Marhefka, RN) Duration (sec): 50-100 (Karmen Marhefka, RN) Resting Tone (Palpate): Relaxed (Karmen Marhefka, RN) Monitor Mode: External US (Karmen Marhefka, RN) FHR Baseline Rate : 125 (Karmen Marhefka, RN) FHR Baseline Changes: No Baseline Change (Karmen Marhefka, RN) Variability: Moderate 6-25 bpm (Karmen Marhefka, RN) Accelerations: None (Karmen Marhefka, RN) Decelerations: None (Karmen Marhefka, RN) Datetime: 11/23/2016 18:08 Patient Position/Activity: Right Lateral; Peanut Ball; Low Fowlers (Karmen Pickering, RN) Datetime: 11/23/2016 18:04 NBP Sys/Cara/Mean (mmHg): 122 (QS system process) : 71 (QS system process) : 91 (QS system process) Pulse: 71 (QS system process) LaborFlag: Antepartum (QS system process) Datetime: 11/23/2016 18:03 Patient Care Comments: [place] bulb inserted by Dr. Beatty (Karmen Hillavi, RN) Datetime: 11/23/2016 18:02 Membrane Status: Ruptured (Karmen Pickering RN) Membranes Rupture Method: Artificial (Karmen Pickering RN) Amniotic Fluid Color: Clear (Karmen Pickering RN) Amniotic Fluid Amount: Large (Karmen Pickering RN) Membrane Comments: forebag ruptured by Dr. Beatty (Karmen Pickering RN) Datetime: 11/23/2016 18:00 Frequency (min): 1-3 (Karmen Pickering RN) Quality: Mild (Karmen Pickering RN) Duration (sec): 50-100 (Karmen Pickering RN) Pattern: Tachysystole: > 5 Contractions in 10 Minutes (Karmen Pickering RN) Resting Tone (Palpate): Relaxed (Karmen Pickering RN) Monitor Mode: External US (Karmen Pickering RN) FHR Baseline Rate : 120 (Karmen Pickering RN) FHR Baseline Changes: No Baseline Change (Karmen Pickering RN) Variability: Moderate 6-25 bpm (Karmen Pickering RN) Accelerations: None (Karmen Pickering RN) Decelerations: None (Karmen Pickering RN)
[2016-11-23] MEDS ORDERED: CEFAZOLIN 1 GM/D5W RTU 1 GM/50 ML RTUPB IV SCH (22:00)
--- NOTE | 2016-11-23 22:00 | L&D Flow Sheet ---
LD Flowsheet Datetime Report Generated by CPN: 11/23/2016 22:00 Datetime: 11/23/2016 21:49 NBP Sys/Cara/Mean (mmHg): 112 (QS system process) : 72 (QS system process) : 86 (QS system process) Pulse: 62 (QS system process) LaborFlag: Antepartum (QS system process) Datetime: 11/23/2016 21:45 Monitor Mode: External; Palpation (Tara Menard RN) Frequency (min): 1-1.5 (Tara Menard RN) Quality: Mild/Moderate (Tara Menard RN) Duration (sec): 40-60 (Tara Menard RN) Resting Tone (Palpate): Relaxed (Tara Menard RN) Monitor Mode: External US (Tara Menard RN) FHR Baseline Rate : 145 (Tara Menard RN) Variability: Moderate 6-25 bpm (Tara Menard RN) Accelerations: None (Tara Menard RN) Pitocin (milliunit): Pitocin Remains (milliunits) @ (Annotations: 8) (Tara Menard RN) Datetime: 11/23/2016 21:36 Maternal Comments: family at bedside, pt denies needs. (Tara Menard RN) Datetime: 11/23/2016 21:33 NBP Sys/Cara/Mean (mmHg): 113 (QS system process) : 74 (QS system process) : 88 (QS system process) Pulse: 64 (QS system process) LaborFlag: Antepartum (QS system process) Datetime: 11/23/2016 21:30 Monitor Mode: External; Palpation (Tara Menard RN) Frequency (min): 1-2 (Tara Menard, RN) Quality: Mild/Moderate (Tara Menard, RN) Duration (sec): 40-90 (Tara Menard RN) Resting Tone (Palpate): Relaxed (Tara Menard, RN) Monitor Mode: External US (Tara Menard, RN) FHR Baseline Rate : 135 (Tara Menard, RN) Variability: Moderate 6-25 bpm (Tara Menard, RN) Accelerations: 10X10 (Tara Menard, RN) Decelerations: None (Tara Menard, RN) Pitocin (milliunit): Pitocin Remains (milliunits) @ (Annotations: 8 ) (Tara Menard, RN) Datetime: 11/23/2016 21:26 Temperature (F): 98.2 (Rucsandra Derian, RN) Temperature (C): 36.8 (QS system process) LaborFlag: Antepartum (QS system process) Datetime: 11/23/2016 21:24 I/O Interventions: Clear Liquids Given (Tara Menard, RN) Datetime: 11/23/2016 21:20 NBP Sys/Cara/Mean (mmHg): 121 (QS system process) : 72 (QS system process) : 91 (QS system process) Pulse: 67 (QS system process) LaborFlag: Antepartum (QS system process) Datetime: 11/23/2016 21:18 NBP Sys/Cara/Mean (mmHg): 115 (QS system process) : 78 (QS system process) : 91 (QS system process) Pulse: 68 (QS system process) LaborFlag: Antepartum (QS system process) Datetime: 11/23/2016 21:15 Monitor Mode: External; Palpation (Tara Menard, RN) Frequency (min): 1.5-2.5 (Tara Menard, RN) Quality: Mild/Moderate (Tara Menard, RN) Duration (sec): 40-70 (Rucsandra Menard, RN) Resting Tone (Palpate): Relaxed (Tara Menard, RN) Monitor Mode: External US (Tara Menard, RN) FHR Baseline Rate : 140 (Hermancsandra Menard, RN) Variability: Moderate 6-25 bpm (Taylorandra Menard, RN) Accelerations: None (Tara Menard, RN) Decelerations: None (Tara Menard, RN) Pitocin (milliunit): Pitocin Increased to (milliunits) @ 8 (Tara Menard, RN) Datetime: 11/23/2016 21:08 Monitor Interventions for UA: [place] Adjusted (Tara Menard, GONZALES) Datetime: 11/23/2016 21:03 NBP Sys/Cara/Mean (mmHg): 120 (QS system process) : 73 (QS system process) : 92 (QS system process) Pulse: 62 (QS system process) LaborFlag: Antepartum (QS system process) Datetime: 11/23/2016 21:00 Monitor Mode: External; Palpation (Tara Menard RN) Frequency (min): 1.5-5 (Tara Menard RN) Quality: Mild/Moderate (Tara Menard RN) Duration (sec): 40-60 (Tara Menard RN) Resting Tone (Palpate): Relaxed (Tara Menard RN) Monitor Mode: External US (Rucsandra Derian, RN) FHR Baseline Rate : 140 (Tara Menard, RN) Variability: Moderate 6-25 bpm (Tara Menard, RN) Accelerations: None (Tara Menard, RN) Decelerations: None (Tara Menard, RN) Pitocin (milliunit): Pitocin Remains (milliunits) @ (Annotations: 6) (Tara Menard RN) Datetime: 11/23/2016 20:48 NBP Sys/Cara/Mean (mmHg): 117 (QS system process) : 74 (QS system process) : 90 (QS system process) Pulse: 65 (QS system process) LaborFlag: Antepartum (QS system process) Datetime: 11/23/2016 20:45 Monitor Mode: External; Palpation (Tara Menard RN) Frequency (min): 2-5 (Tara Menard RN) Quality: Mild/Moderate (Tara Menard RN) Duration (sec): 40-120 (Rucsandra Derian, RN) Resting Tone (Palpate): Relaxed (Tara Menadr, RN) Monitor Mode: External US (Tara Menard, RN) FHR Baseline Rate : 140 (Tara Menard, RN) Variability: Moderate 6-25 bpm (Tara Menard, RN) Accelerations: None (Hermanrainahector Menard, RN) Decelerations: None (Hermanrainaandra Menard, RN) Pitocin (milliunit): Pitocin Remains (milliunits) @ (Annotations: 6 ) (Tara Menard, RN) Datetime: 11/23/2016 20:35 Monitor Interventions for UA: [place] Adjusted (Tara Derian, RN) Datetime: 11/23/2016 20:33 NBP Sys/Cara/Mean (mmHg): 120 (QS system process) : 74 (QS system process) : 92 (QS system process) Pulse: 65 (QS system process) LaborFlag: Antepartum (QS system process) Datetime: 11/23/2016 20:30 Monitor Mode: External; Palpation (Rucsandra Derian, RN) Frequency (min): 1.5-3 (Rucsandra Derian, RN) Quality: Mild/Moderate (Rucsandra Derian, RN) Duration (sec): 60-80 (Rucsandra Derian, RN) Resting Tone (Palpate): Relaxed (Rucsandra Derian, RN) Monitor Mode: External US (Rucsandra Derian, RN) FHR Baseline Rate : 140 (Rucsandra Derian, RN) Variability: Moderate 6-25 bpm (Rucsandra Derian, RN) Accelerations: 10X10 (Rucsandra Derian, RN) Decelerations: None (Rucsandra Derian, RN) Pitocin (milliunit): Pitocin Increased to (milliunits) @ 6 (Rucsandra Derian, RN) Datetime: 11/23/2016 20:28 Communication Comments: Dr Beatty at bedside, strip reviewed. (Rucsandra Derian, RN) Datetime: 11/23/2016 20:26 Monitor Interventions for UA: [place] Adjusted (Tara Menard, RN) Datetime: 11/23/2016 20:19 NBP Sys/Cara/Mean (mmHg): 120 (QS system process) : 74 (QS system process) : 93 (QS system process) Pulse: 67 (QS system process) LaborFlag: Antepartum (QS system process) Datetime: 11/23/2016 20:15 Monitor Mode: External; Palpation (Tara Menard RN) Frequency (min): 1-3.5 (Tara Menard RN) Quality: Mild/Moderate (Tara Menard RN) Duration (sec): 60-80 (Tara Menard RN) Resting Tone (Palpate): Relaxed (Tara Menard RN) Monitor Mode: External US (Tara Menard RN) FHR Baseline Rate : 140 (Tara Menard RN) Variability: Moderate 6-25 bpm (Tara Menard RN) Accelerations: None (Tara Menard RN) Decelerations: None (Tara Menard RN) Pitocin (milliunit): Pitocin Remains (milliunits) @ (Annotations: 4 ) (Tara Menard RN) Datetime: 11/23/2016 20:08 Communication Comments: Dr Beatty on unit, strip reviewed. Advised of pitocin at 4 milliunits/min. No new orders. (Tara Menard RN) Datetime: 11/23/2016 20:03 NBP Sys/Cara/Mean (mmHg): 112 (QS system process) : 68 (QS system process) : 83 (QS system process) Pulse: 77 (QS system process) LaborFlag: Antepartum (QS system process) Datetime: 11/23/2016 20:00 Monitor Mode: External; Palpation (Tara Menard RN) Frequency (min): 1-4 (Tara Menard RN) Quality: Mild/Moderate (Tara Menard RN) Duration (sec): 60-80 (Tara Menard RN) Resting Tone (Palpate): Relaxed (Tara Menard RN) Monitor Mode: External US (Tara Menard RN) FHR Baseline Rate : 145 (Tara Menard RN) Variability: Moderate 6-25 bpm (Tara Menard RN) Accelerations: None (Tara Menard RN) Decelerations: None (Tara Menard RN) Pitocin (milliunit): Pitocin Increased to (milliunits) @ 4 (Tara Menard RN)
[2016-11-23] MEDS ORDERED: CEFAZOLIN 1 GM/D5W RTU 1 GM/50 ML RTUPB IV ONE (22:12)
[2016-11-23] MEDS: MISOPROSTOL 0.1 MG TABLET PV SCH (22:57)
[2016-11-24] MEDS: MISOPROSTOL 0.1 MG TABLET PV SCH ×2 (00:45→00:47)
[2016-11-24] MEDS: RINGERS SOLUTION,LACTATED 1,000 ML IV PRN (00:47)
[2016-11-24] MEDS: MISOPROSTOL 0.1 MG TABLET PO SCH (00:47)
[2016-11-24] MEDS ORDERED: LIDOCAINE 2% INJ-PF (20 MG/ML) 10 ML AMPUL ONE ×2 (01:43→02:12)
[2016-11-24] MEDS ORDERED: CITRIC ACID/SODIUM CITRATE ORAL SOLN 15 ML UDCUP ONE (02:10)
[2016-11-24] MEDS ORDERED: CEFAZOLIN 1 GM/D5W RTU 1 GM/50 ML RTUPB IV ONE (02:10)
[2016-11-24] MEDS ORDERED: FENTANYL CITRATE INJ/PF 100 MCG/2 ML AMPUL ONE (02:25)
[2016-11-24] MEDS ORDERED: MIDAZOLAM 2 MG/2 ML INJ ONE (02:25)
[2016-11-24] MEDS ORDERED: EPHEDRINE SULFATE INJ 50 MG/1 ML AMPULE ONE (02:25)
[2016-11-24] MEDS ORDERED: FENTANYL CITRATE INJ/PF 250 MCG/5 ML AMPULE ONE (02:25)
[2016-11-24] MEDS ORDERED: OXYTOCIN 10 UNIT/ML VIAL ONE (02:25)
[2016-11-24] MEDS ORDERED: OXYTOCIN/NORMAL SALINE 20 UNIT/1,000 ML RTUINJ ONE ×2 (02:26→04:32)
[2016-11-24] MEDS ORDERED: ONDANSETRON HCL INJ/PF 4 MG/2 ML SDV ONE (02:26)
[2016-11-24] MEDS ORDERED: BUPIVACAINE HCL 0.5 % INJ/PF 30 ML SDV ONE (02:27)
[2016-11-24] MEDS ORDERED: MORPHINE SULFATE INJ PF 10 MG/10 ML SDV ONE (02:30)
[2016-11-24] MEDS ORDERED: BUPIVACAINE INJ/PF LIPOSOME/PF 266 MG/20 ML SDV ONE (02:37)
[2016-11-24] MEDS ORDERED: MEPERIDINE HCL/PF INJ 25 MG/1 ML DISP.SYRIN IV PRN (03:35)
[2016-11-24] MEDS ORDERED: FENTANYL CITRATE INJ/PF 100 MCG/2 ML AMPUL IV PRN ×3 (03:35)
[2016-11-24] MEDS ORDERED: DIPHENHYDRAMINE HCL 50 MG/ML VIAL IV PRN (03:35)
[2016-11-24] MEDS ORDERED: PROMETHAZINE HCL INJ 25 MG/1 ML VIAL IV PRN (03:35)
[2016-11-24] MEDS ORDERED: OXYTOCIN/NORMAL SALINE 1,000 ML IV PRN (03:55)
[2016-11-24] MEDS ORDERED: MORPHINE SULFATE 10 MG/ML INJ IV PRN (03:55)
[2016-11-24] MEDS ORDERED: SIMETHICONE 80 MG TAB.CHEW PO PRN (03:55)
[2016-11-24] MEDS ORDERED: ACETAMINOPHEN 325 MG TABLET PO PRN (03:55)
[2016-11-24] MEDS ORDERED: DIPH/PERTUSS(ACELL)/TETANUS VAC/PF 0.5 ML SYR (>=10YO) IM PRN (03:55)
[2016-11-24] MEDS ORDERED: MEASLES,MUMPS&RUBELLA VACC/PF 0.5 ML VIAL SUBCUT PRN (03:55)
[2016-11-24] MEDS ORDERED: ACETAMINOPHEN 100 ML IV PRN (03:55)
[2016-11-24] MEDS ORDERED: ONDANSETRON HCL 8 MG TABLET PO PRN (03:58)
[2016-11-24] MEDS ORDERED: MEPERIDINE HCL/PF INJ 25 MG/1 ML DISP.SYRIN ONE (03:58)
[2016-11-24] MEDS ORDERED: CEFAZOLIN SODIUM 1 GM in DEXTROSE 5%-WATER 50 ML IV PRN (04:00)
[2016-11-24] MEDS ORDERED: MORPHINE SULFATE 10 MG/ML INJ ONE (04:46)
[2016-11-24] MEDS: MORPHINE SULFATE 10 MG/ML INJ IV PRN ×3 (04:48→05:42)
--- NOTE | 2016-11-24 05:33 | Delivery Summary ---
Del Sum A-C Datetime Report Generated by CPN: 11/24/2016 05:33 ADMISSION DATA Chief Complaint: Uterine Contractions; Suspected Ruptured Membranes Indication for Induction: PROM Admission Impression: Term, Intrauterine ; No Active Labor; Ruptured Membranes Admit Provider Comments: amnisure positive. cervix very unfavorable. requiring significant cervical ripening. will begin with cytotec PO and PV and switch to cervidil if no results. May have epidural with active labor and IV pain meds as needed prior. May have light breakfast/lunch until active labor. GBS negative. Will start ABX when ruptured >18 hours. DELIVERY PERSONNEL Delivery Doctor:: Bertha Beatty MD SPECIAL EDUCATION INSTRUCTOR:: Maynor Lamb CRNA Labor and Delivery Nurse:: Tara Menard RN Neonatal Nurse Practitioner:: CHRISTIANO Duran Nursery Nurse:: Cydney Rich RN Nursery Nurse:: Mallory Pedro RN Shipping And Receiving Supervisor/DIRECTOR OF SPEECH PATHOLOGY: Jeanne Moon, Shipping And Receiving Supervisor/DIRECTOR OF SPEECH PATHOLOGY: Isatu Hendrix, OIL FURNACE INSTALLER Additional Personnel: : Leopoldo Medina CNA MATERNAL INFORMATION Delivery Anesthesia: Epidural Medications After Delivery: Pitocin Bolus-Please Comment; Pitocin Drip 20 Units/1000ml NSS Meds After Delivery Comment: 20 units pitocin after placenta delivery Estimated Blood Loss (ml): 600 Maternal Complications: Prolonged Labor > 20 Hrs; Other Other Maternal Complications: prolonged rupture of membranes LABOR SUMMARY EDC: 12/14/2016 00:00 No. Babies in Womb: 1 Attempted: No Labor Anesthesia: Epidural LABOR INFORMATION Reason for Induction: Premature Rupture of Membranes Onset of Labor: 11/23/2016 12:04 Cervical Ripening Agents: Egan Balloon; Cytotec @ Oxytocin: Induction Group B Beta Strep: Negative Steroids Given: None Reason Steroids Not Administered: Not Applicable MEMBRANES Membranes Rupture Method: Spontaneous Rupture of Membranes: 11/23/2016 04:00 Length of Rupture (hr): 23.08 Amniotic Fluid Color: Clear Amniotic Fluid Amount: Scant STAGES OF LABOR Stage 3 hr: 0 Stage 3 min: 1 Total Time in Labor hr: 15 Total Time in Labor min: 2 VAGINAL DELIVERY Episiotomy: None Laceration Extension: N/A Laceration Type: None Sponge Count Correct: N/A CSECTION DELIVERY Primary Indication: Prolonged Latent Phase Secondary Indication: Other Other Secondary Indication: CPD CSection Urgency: Non-Scheduled CSection Incidence: Primary Labor: Labor Elective: N/A CSection Incision: Lower Uterine Transverse BABY A INFORMATION Infant Delivery Date/Time: 11/24/2016 03:05 Method of Delivery: Born in Route : No : N/A Forceps: N/A Vacuum Extraction: N/A Shoulder Dystocia : No PRESENTATION/POSITION BABY A Presentation: Cephalic Cephalic Presentation: Vertex Vertex Position: OP Breech Presentation: N/A PLACENTA INFORMATION BABY A Placenta Delivery Time : 11/24/2016 03:06 Placenta Method of Delivery: Manual Removal Placenta Status: Delivered SCORES BABY A Heart Rate 1 min: >100 bpm Resp Effort 1 min: Slow, Irregular Reflex Irritability 1 min: Cough or Sneeze or Pulls Away Muscle Tone 1 min: Active Motion Color 1 min: Blue/Pale SCORE 1 MIN: 7 Heart Rate 5 min: >100 bpm Resp Effort 5 min: Absent Reflex Irritability 5 min: Cough or Sneeze or Pulls Away Muscle Tone 5 min: Active Motion Color 5 min: Blue/Pale SCORE 5 MIN: 6 Heart Rate 10 min: >100 bpm Resp Effort 10 min: Good Cry Reflex Irritability 10 min: Cough or Sneeze or Pulls Away Muscle Tone 10 min: Active Motion Color 10 min: Body [place], Extremities Blue SCORE 10 MIN: 9 INFANT INFORMATION BABY A Gestational Age at Delivery: 37.1 Gestational Status: Early Term- 37- 38.6 Weeks Outcome : Liveborn Condition : Stable Sex: Female IDENTIFICATION BABY A Infant Verification Date/Time: 11/24/2016 03:24 ID Band Number: [id number] Mother's Name Verified: Yes RN Verifying : R Jennifer, RNC Additional Verifying Personnel: Aravind Medina CNA WEIGHT/LENGTH BABY A Infant Birthweight (gm): 3280 Weight (lb): 7 Weight (oz): 4 Length (in): 19.50 Infant Length (cm): 49.53 CORD INFORMATION BABY A No. Cord Vessels: 3 Nuchal Cord : N/A Cord Blood Taken: Yes-For Eval (Mom's Blood Type - or O+) Infant Suction: Mouth; Nose ASSESSMENT BABY A Infant Complications: Other Complications- Other: See nursery notes Physical Findings at Delivery: Other Physical Findings- Other: See nursery notes Skin to Skin: Yes Skin to Skin Time (min): 5 Cyber Workforce Developer And Manager/ALS Called : No Infant Care By: Brandy Prasad INSPECTOR PLATING, Milady Rich RN, Chasity Elaine RN Transferred To: Nursery BABY B INFORMATION : N/A
[2016-11-24] MEDS ORDERED: KETOROLAC TROMETHAMINE INJ/PF 30 MG/1 ML SDV ONE (05:41)
--- NOTE | 2016-11-24 05:48 | OPERATIVE REPORT E ---
Operative Report NAME: JOSIAH PEÑA : 1995 AGE: 21Y DATE OF SURGERY: 11/24/2016 ROOM: LR200 PREOPERATIVE DIAGNOSES: 1. IUP AT 37 WEEKS 0 DAYS. 2. CEPHALOPELVIC DISPROPORTION. 3. FAILURE TO DESCEND. POSTOPERATIVE DIAGNOSES: 1. IUP AT 37 WEEKS 0 DAYS. 2. CEPHALOPELVIC DISPROPORTION. 3. FAILURE TO DESCEND. OPERATION: Low-transverse hysterotomy section. SURGEON: VENTURA DURAN M.D. ANESTHESIA: Dr. Costa with an epidural. FINDINGS: Female in cephalic presentation with Apgars of 7, 6, and 9. Weight 7 pounds 4 ounces, 19.5 inches long. ESTIMATED BLOOD LOSS: 600 mL. SPECIMENS REMOVED: None. PROCEDURE IN DETAIL: The patient was taken to the operating room and prepared and draped in normal sterile fashion in supine position with a leftward tilt. A transverse skin incision was made with the scalpel and carried through to the underlying layer of fascia with the same scalpel. The fascia was excised in the midline and extended laterally with Sumi. The fascia was dissected from the rectus muscles sharply with Sumi and the rectus muscle was divided. The peritoneal cavity was entered bluntly with surgeon finger fracture. With good visualization of the bladder and the uterus, the bladder blade was inserted and the hysterotomy was nicked in the center with a scalpel and extended laterally with surgeon finger fracture. The infant was then delivered atraumatically. The nose and mouth were suctioned with the suction bulb and the cord was clamped and cut. The infant was handed off to the waiting pediatricians. The cord blood was collected and the placenta was removed manually. The uterus was exteriorized and cleared of clots and debris. The hysterotomy was closed with 0 Monocryl in a running locked fashion. A second layer of the same suture was used to imbricate to ensure hemostasis. The uterus was then returned to the abdomen. The peritoneal cavity was cleared of clots and debris and the hysterotomy was reinspected for hemostasis and found to be so. The rectus muscle and peritoneum were reapproximated with 2-0 chromic x2 mattress sutures. The fascia was closed with 0 Vicryl. The subcutaneous layer was closed with plain catgut. The incision was then injected with approximately 40 mL of Exparel and normal saline mix. The skin was then closed with 4-0 Vicryl. The patient tolerated the procedure well. Sponge, lap, and needle counts were correct x2, and the patient was taken to recovery in stable condition. DICTATING PHYSICIAN: VENTURA DURAN M.D. [id number] PHY#: [id number] ID: [id number] JOB#: [id number] ACCT: [id number] cc:VENTURA DURAN M.D. >
[2016-11-24] MEDS: KETOROLAC TROMETHAMINE INJ/PF 30 MG/1 ML SDV IV SCH ×3 (05:54→21:24)
--- NOTE | 2016-11-24 06:31 | Admission Physical ---
Datetime Report Generated by CPN: 11/24/2016 06:30 CURRENT ADMISSION Chief Complaint: Uterine Contractions; Suspected Ruptured Membranes Indication for Induction: PROM Admit Plan: Admit to Unit; Initiate Labor Induction Protocol ALLERGIES Medication Allergies: No Medication Allergies: No Known Allergies (10/31/2016) Latex: No Latex Allergies OBSTETRICAL HISTORY EDC: 12/14/2016 00:00 : 1 Para: 0 Term: 0 : 0 SAB: 0 IAB: 0 Ectopic: 0 Livin Cesareans: 0 VBACs: 0 Multiple Births: 0 Gestational Diabetes: No Rh Sensitization: No Incompetent Cervix: No JESSICA: No Infertility: No ART Treatment: No Uterine Anomaly: No IUGR: No Hx Previous C/S: No Macrosomia: No Hx Loss/Stillborn: No PIH: No Hx : No Placenta Previa/Abruption: No Depression/PP Depression: No PTL/PROM: No Post Hemorrhage: No Current Procedures: Ultrasound; NST Obstetrical History Comments: G1-Current SEE RECORDS Alcohol: No Marijuana : No Cocaine: No Other Illicit Drugs: No Cigarettes: Former Smoker. 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: No Heart Disease: No Hosp/Surgery: No Autoimmune Disorder: No Anesthetic Complications: No Kidney Disease: Yes Abnormal Pap Smear: No Neuro/Epilepsy: No Psychiatric Disorders: No Other Medical Diseases: No Hepatitis/Liver Disease: No Significant Family History: No Varicosities/Phlebitis: No Trauma/Violence : No Thyroid Dysfunction: No Medical History Comments: pre kidney infection INFECTIOUS HISTORY Gonorrhea: No Genital Herpes: No Chlamydia: No Tuberculosis: No Syphilis: No Hepatitis: No HIV/AIDS Exposure: No Rash or Viral Illness: No HPV: No PHYSICAL EXAM General: Normal HEENT: Normal Neurologic: Normal Thyroid: Normal Heart: Normal Lungs: Normal Breast: Normal Back: Normal Abdomen: Normal Genitourinary Exam: Normal Extremities: Normal DTRs: Normal Pelvic Type: Adequate Vital Signs: Reviewed; Within Normal Limits VAGINAL EXAM Dilatation: 0 Effacement: 0 Station: -2 MEMBRANES Pooling: Negative Membranes: Ruptured Amniotic Fluid Color: Clear FETUS A EGA: 37.0 Monitoring: External US FHR- Baseline: 150 Variability: Moderate 6-25bpm Accelerations: 15X15 Decelerations: None Estimated Weight (gm): 3600 Presentation: Vertex Admit Comment: amnisure positive. cervix very unfavorable. requiring significant cervical ripening. will begin with cytotec PO and PV and switch to cervidil if no results. May have epidural with active labor and IV pain meds as needed prior. May have light breakfast/lunch until active labor. GBS negative. Will start ABX when ruptured >18 hours. PLANS FOR LABOR AND DELIVERY Labor and Delivery: None Pain Management: Epidural Feeding Preference: Breast Benefit of Breast Feed Discussed: Yes Circumcision: N/A INFORMED CONSENT Signature: with User ID: [email or web address]
--- NOTE | 2016-11-24 07:00 | L&D Flow Sheet ---
LD Flowsheet Datetime Report Generated by CPN: 11/24/2016 07:00 Datetime: 11/24/2016 06:15 Stage of : Recovery (Tara Menard, RN) Datetime: 11/24/2016 06:06 Stage of : Recovery (Rucsharrietra Derian, RN) NBP Sys/Cara/Mean (mmHg): 120 (QS system process) : 71 (QS system process) : 90 (QS system process) Pulse: 73 (QS system process) Respirations: 16 (Rucsandra Derian, RN) Pain Scale: 0 (Taylorand Derian, RN) Pain Presence: None/Denies (Rucsandra Menard, RN) Pain Type: N/A (Rucsandra Derian, RN) Datetime: 11/24/2016 06:02 Pulse: 80 (QS system process) SpO2 (%): 97 (QS system process) Datetime: 11/24/2016 05:57 Pulse: 76 (QS system process) SpO2 (%): 98 (QS system process) Datetime: 11/24/2016 05:54 Stage of : Recovery (Tara Menard RN) NBP Sys/Cara/Mean (mmHg): 128 (QS system process) : 78 (QS system process) : 95 (QS system process) Pulse: 76 (QS system process) Pain Scale: 0 (Tara Menard, GONZALES) Pain Presence: None/Denies (Tara Menard, GONZALES) Pain Type: N/A (Tara Menard, GONZALES) Datetime: 11/24/2016 05:53 Stage of : Recovery (Tara Menard ) Datetime: 11/24/2016 05:52 Pulse: 79 (QS system process) SpO2 (%): 97 (QS system process) Datetime: 11/24/2016 05:47 Stage of : Recovery (aTylorandra CorderoDerian, RN) Pulse: 79 (QS system process) SpO2 (%): 96 (QS system process) Pain Scale: 0 (Taylorandra Menard, RN) Pain Presence: None/Denies (Taylorandra Menard, RN) Pain Type: N/A (Rucsandra Menard, RN) Pain Goal: 2 (Taylorandra CorderoDerian, RN) Datetime: 11/24/2016 05:42 Stage of : Recovery (Tara Menard, RN) Pulse: 74 (QS system process) SpO2 (%): 96 (QS system process) Pain Relief Measures: Pain Medication Given (Tara Menard, RN) Datetime: 11/24/2016 05:39 Stage of : Recovery (Tara Menard RN) NBP Sys/Cara/Mean (mmHg): 121 (QS system process) : 79 (QS system process) : 95 (QS system process) Pulse: 70 (QS system process) Pain Scale: 2 (Tara Menard RN) Pain Presence: Intermittent (Tara Menard RN) Pain Type: Burning (Tara Menard RN) Pain Location: Abdomen (Tara Menard RN) Pain Goal: 2 (Tara Menard RN) Pain Relief Measures: Comfort Measures (Tara Menard RN) Datetime: 11/24/2016 05:37 Pulse: 70 (QS system process) SpO2 (%): 98 (QS system process) Datetime: 11/24/2016 05:32 Pulse: 73 (QS system process) SpO2 (%): 98 (QS system process) Datetime: 11/24/2016 05:27 Pulse: 73 (QS system process) SpO2 (%): 99 (QS system process) Datetime: 11/24/2016 05:24 Stage of : Recovery (Tara Menard RN) NBP Sys/Cara/Mean (mmHg): 122 (QS system process) : 79 (QS system process) : 95 (QS system process) Pulse: 70 (QS system process) Pain Scale: 0 (Tara Menard RN) Pain Presence: None/Denies (Tara Menard RN) Pain Type: N/A (Tara Menard RN) Datetime: 11/24/2016 05:22 Pulse: 71 (QS system process) SpO2 (%): 98 (QS system process) Datetime: 11/24/2016 05:17 Pulse: 67 (QS system process) SpO2 (%): 99 (QS system process) Datetime: 11/24/2016 05:12 Pulse: 73 (QS system process) SpO2 (%): 99 (QS system process) Datetime: 11/24/2016 05:09 Stage of : Recovery (Rucsandra Derian, RN) NBP Sys/Cara/Mean (mmHg): 125 (QS system process) : 79 (QS system process) : 97 (QS system process) Pulse: 74 (QS system process) Respirations: 16 (Tara Menard RN) Pain Scale: 1 (Tara Menard RN) Pain Presence: Intermittent (Tara Menard RN) Pain Type: Cramping (Tara Menard RN) Pain Location: Abdomen (Tara Menard RN) Pain Goal: 2 (Tara Menard RN) Pain Relief Measures: Comfort Measures (Tara Menard RN) Datetime: 11/24/2016 05:07 Pulse: 76 (QS system process) SpO2 (%): 100 (QS system process) Datetime: 11/24/2016 05:02 Pulse: 76 (QS system process) SpO2 (%): 98 (QS system process) Datetime: 11/24/2016 05:01 Stage of : Recovery ([facility], ) Pain Scale: 2 ([facility], ) Pain Presence: Intermittent ([facility], ) Pain Type: Burning ([facility], ) Pain Location: Abdomen ([facility], ) Pain Goal: 2 ([facility], ) Pain Relief Measures: Pain Medication Given ([facility]) Datetime: 11/24/2016 04:57 Pulse: 75 (QS system process) SpO2 (%): 100 (QS system process) Datetime: 11/24/2016 04:54 Stage of : Recovery (Tara Menard RN) NBP Sys/Cara/Mean (mmHg): 129 (QS system process) : 81 (QS system process) : 101 (QS system process) Pulse: 67 (QS system process) Respirations: 16 (Tara Menard RN) Pain Scale: 1 (Tara Menard RN) Pain Presence: Intermittent (Tara Menard RN) Pain Type: Cramping (Tara Menard RN) Pain Location: Abdomen (Tara Menard RN) Pain Goal: 2 (Tara Menard RN) Pain Relief Measures: Comfort Measures (Tara Menard RN) Datetime: 11/24/2016 04:52 Pulse: 72 (QS system process) SpO2 (%): 99 (QS system process) Datetime: 11/24/2016 04:48 Stage of : Recovery (Tara Menard RN) Pain Scale: 3 (Rucsandra Derian, RN) Pain Presence: Intermittent (Tara Menard, RN) Pain Type: Burning; Cramping (Tara Menard, RN) Pain Location: Abdomen (Tara Menard, RN) Pain Goal: 2 (Tara Menard RN) Pain Relief Measures: Pain Medication Given (Tara Menard, RN) Datetime: 11/24/2016 04:47 Pulse: 74 (QS system process) SpO2 (%): 100 (QS system process) Datetime: 11/24/2016 04:42 Pulse: 71 (QS system process) SpO2 (%): 99 (QS system process) Datetime: 11/24/2016 04:39 Stage of : Recovery (Tara Menard RN) NBP Sys/Cara/Mean (mmHg): 135 (QS system process) : 91 (QS system process) : 108 (QS system process) Pulse: 82 (QS system process) Respirations: 16 (Tara Menard RN) Pain Scale: 2 (Tara Menard RN) Pain Presence: Intermittent (Tara Menard RN) Pain Type: Burning; Cramping (Tara Menard RN) Pain Location: Abdomen (Tara Menard RN) Pain Goal: 2 (Tara Menard RN) Pain Relief Measures: Comfort Measures (Annotations: pain meds offered, pt denies at this time. ) (Tara Menard RN) Datetime: 11/24/2016 04:37 Pulse: 72 (QS system process) SpO2 (%): 100 (QS system process) Datetime: 11/24/2016 04:35 Stage of : Recovery (Rucsandra Derian, RN) Datetime: 11/24/2016 04:32 Pulse: 67 (QS system process) SpO2 (%): 100 (QS system process) Datetime: 11/24/2016 04:27 Pulse: 70 (QS system process) SpO2 (%): 100 (QS system process) Datetime: 11/24/2016 04:25 Stage of : Recovery (Rucsandra Derian, RN) NBP Sys/Cara/Mean (mmHg): 131 (QS system process) : 80 (QS system process) : 101 (QS system process) Pulse: 71 (QS system process) Respirations: 16 (Tara Menard RN) Pain Scale: 1 (Taar Menard RN) Pain Presence: Intermittent (Tara Menard RN) Pain Type: Cramping (Tara Menard RN) Pain Location: Abdomen (Tara Menard RN) Pain Goal: 2 (Tara Menard RN) Pain Relief Measures: Comfort Measures (Tara Menard RN) Datetime: 11/24/2016 04:22 Pulse: 69 (QS system process) SpO2 (%): 100 (QS system process) Datetime: 11/24/2016 04:17 Pulse: 74 (QS system process) SpO2 (%): 100 (QS system process) Datetime: 11/24/2016 04:12 Pulse: 79 (QS system process) SpO2 (%): 100 (QS system process) Datetime: 11/24/2016 04:09 Stage of : Recovery (Tara Menard RN) NBP Sys/Cara/Mean (mmHg): 118 (QS system process) : 77 (QS system process) : 93 (QS system process) Pulse: 69 (QS system process) Pain Scale: 1 (Tara Menard RN) Pain Presence: Intermittent (Tara Menard RN) Pain Type: Cramping (Tara Menard RN) Pain Location: Abdomen (Tara Menard RN) Pain Goal: 2 (Tara Menard RN) Pain Relief Measures: Comfort Measures (Tara Menard RN) Datetime: 11/24/2016 04:07 Pulse: 83 (QS system process) SpO2 (%): 100 (QS system process) Datetime: 11/24/2016 04:04 Stage of : Recovery (Tara Menard RN) NBP Sys/Cara/Mean (mmHg): 110 (QS system process) : 69 (QS system process) : 85 (QS system process) Pulse: 81 (QS system process) Pain Scale: 1 (Tara Menard RN) Pain Presence: Intermittent (Tara Menard RN) Pain Type: Cramping (Tara Menard RN) Pain Location: Abdomen (Tara Menard RN) Pain Goal: 2 (Tara Menard RN) Pain Relief Measures: Comfort Measures (Tara Menard RN) Datetime: 11/24/2016 04:02 Pulse: 85 (QS system process) SpO2 (%): 100 (QS system process) Datetime: 11/24/2016 03:59 Stage of : Recovery (Tara Menard, RN) NBP Sys/Cara/Mean (mmHg): 205 (QS system process) : 124 (QS system process) : 149 (QS system process) Pulse: 65 (QS system process) Datetime: 11/24/2016 03:58 Stage of : Recovery (Rucsandra Derian, RN) Datetime: 11/24/2016 03:57 Pulse: 84 (QS system process) SpO2 (%): 100 (QS system process) Datetime: 11/24/2016 03:55 Stage of : Recovery (Rucsandra Derian, RN) NBP Sys/Cara/Mean (mmHg): 195 (QS system process) : 108 (QS system process) : 138 (QS system process) Pulse: 83 (QS system process) Datetime: 11/24/2016 03:52 Pulse: 87 (QS system process) SpO2 (%): 100 (QS system process) Datetime: 11/24/2016 03:48 Stage of : Recovery (Tara Menard RN) NBP Sys/Cara/Mean (mmHg): 111 (QS system process) : 57 (QS system process) : 76 (QS system process) Pulse: 83 (QS system process) Temperature (F): 97.8 (Tara Menard RN) Temperature (C): 36.6 (QS system process) Pain Scale: 2 (Tara Menard RN) Pain Presence: Intermittent (Tara Menard RN) Pain Type: Burning; Cramping (Tara Menard RN) Pain Location: Abdomen (Tara Menard RN) Pain Goal: 2 (Tara Menard RN) Pain Relief Measures: Comfort Measures (Tara Menard RN) Datetime: 11/24/2016 03:47 Stage of : Recovery (Tara Menard RN) Pulse: 92 (QS system process) SpO2 (%): 100 (QS system process) Datetime: 11/24/2016 02:47 Additional Nursing Comments: Pt transferred to OR via bed. (Jyoti Jennifer, RN) Datetime: 11/24/2016 02:45 Communication Comments: Monitors off for pt transfer to OR for primary C/S . (Rucsandra Derian, RN) Datetime: 11/24/2016 02:26 Medication Comments: Ancef 1 gm preop (Rucsandra Derian, RN) Datetime: 11/24/2016 02:22 Maternal Comments: jamar prep started (Rucsandra Derian, RN) Datetime: 11/24/2016 02:20 Maternal Comments: Dr Igor at bedside to bolus epidural. (Rucsandra Derian, RN) Datetime: 11/24/2016 02:10 Communication Comments: S Prasad, SASH ASSEMBLER notified of impending (Jyoti Jennifer, RN) Datetime: 11/24/2016 02:09 Communication Comments: NBN notified of impending (Jyoti Jennifer, RN) Datetime: 11/24/2016 02:08 Communication Comments: [place], Nursing Communications Engineer notified of impending . (Jyoti Jennifer, RN) Datetime: 11/24/2016 02:04 NBP Sys/Cara/Mean (mmHg): 127 (QS system process) : 80 (QS system process) : 98 (QS system process) Pulse: 85 (QS system process) LaborFlag: Antepartum (QS system process) Datetime: 11/24/2016 01:55 Dilatation (cm): 5.0 (Tara Menard RN) Effacement (%): 80 (Tara Menard RN) Station: -1 (Tara Menard RN) Exam by: Dr. Beatty (Tara Menard RN) Maternal Comments: [place] bulb removed. (Tara Menard RN) Datetime: 11/24/2016 01:52 Provider Reviewed Strip: Yes (Tara Menard RN) Strip Reviewed by: Dr Beatty (Tara Menard RN) Communication: Provider at Bedside (Tara Menard RN) Communication Comments: Dr Beatty at bedside, strip reviewed. POC discussed with pt. Pt agrees and V/U. (Tara Menard RN) Datetime: 11/24/2016 01:50 NBP Sys/Cara/Mean (mmHg): 118 (QS system process) : 63 (QS system process) : 82 (QS system process) Pulse: 70 (QS system process) LaborFlag: Antepartum (QS system process) Datetime: 11/24/2016 01:46 Epidural Procedure Other: Redose (Tara Menard RN) Anesthesia Comments: Dr Costa at bedside, epidural redose with 2% Lidocaine. (Tara Menard, RN) Datetime: 11/24/2016 01:33 NBP Sys/Cara/Mean (mmHg): 133 (QS system process) : 66 (QS system process) : 92 (QS system process) Pulse: 65 (QS system process) LaborFlag: Antepartum (QS system process) Datetime: 11/24/2016 01:30 Monitor Mode: External; Palpation (Rucsandra Derian, RN) Frequency (min): 1.5-2 (Rucsandra Derian, RN) Quality: Mild/Moderate (Rucsandra Derian, RN) Duration (sec): 40-80 (Rucsandra Derian, RN) Resting Tone (Palpate): Relaxed (Rucsandra Derian, RN) Monitor Mode: External US (Rucsandra Derian, RN) FHR Baseline Rate : 140 (Rucsandra Derian, RN) Variability: Moderate 6-25 bpm (Rucsandra Derian, RN) Accelerations: 15X15 (Rucsandra Derian, RN) Decelerations: None (Rucsandra Derian, RN) Datetime: 11/24/2016 01:19 Maternal Comments: skaggs emptied 600ml of clear yellow urine. (Rucsandra Derian, RN) I/O Interventions: Clear Liquids Given (Rucsandra Derian, RN) Datetime: 11/24/2016 01:18 Temperature (F): 98.2 (Rucsandra Derian, RN) Temperature (C): 36.8 (QS system process) LaborFlag: Antepartum (QS system process) Datetime: 11/24/2016 01:15 Monitor Mode: External; Palpation (Rucsandra Derian, RN) Frequency (min): 1.5-2 (Rucsandra Derian, RN) Quality: Mild/Moderate (Rucsandra Derian, RN) Duration (sec): 40-60 (Rucsandra Derian, RN) Resting Tone (Palpate): Relaxed (Rucsandra Derian, RN) Monitor Mode: External US (Rucsandra Derian, RN) FHR Baseline Rate : 140 (Rucsandra Derian, RN) Variability: Moderate 6-25 bpm (Rucsandra Derian, RN) Accelerations: None (Rucsandra Derian, RN) Decelerations: Late (Rucsandra Derian, RN) Datetime: 11/24/2016 01:03 NBP Sys/Cara/Mean (mmHg): 118 (QS system process) : 76 (QS system process) : 93 (QS system process) Pulse: 63 (QS system process) Maternal Comments: additional pillows provided under pt left hip (Tara Menard RN) LaborFlag: Antepartum (QS system process) Datetime: 11/24/2016 01:00 Monitor Mode: External; Palpation (Tara Menard, RN) Frequency (min): 1-2 (Tara Menard, RN) Quality: Mild/Moderate (Rucsandra Derian, RN) Duration (sec): 40-60 (Rucsandra Derian, RN) Resting Tone (Palpate): Relaxed (Rurainaandra Menard, RN) Monitor Mode: External US (Tara Menard, RN) FHR Baseline Rate : 140 (Rucsandra Derian, RN) Variability: Moderate 6-25 bpm (Rucsandra Derian, RN) Accelerations: None (Rucsandra Derian, RN) Decelerations: Variable (Rucsandra Derian, RN) Datetime: 11/24/2016 00:54 Patient Position/Activity: Left Lateral (Rucsandra Derian, RN) Datetime: 11/24/2016 00:53 Patient Position/Activity: Right Lateral (Rucsandra Derian, RN) Datetime: 11/24/2016 00:52 Patient Position/Activity: Right Tilt (Rucsandra Derian, RN) Datetime: 11/24/2016 00:49 NBP Sys/Cara/Mean (mmHg): 123 (QS system process) : 83 (QS system process) : 98 (QS system process) Pulse: 61 (QS system process) Temperature (F): 98.2 (Rucsandra Derian, RN) Temperature (C): 36.8 (QS system process) LaborFlag: Antepartum (QS system process) Datetime: 11/24/2016 00:45 Monitor Mode: External; Palpation (Rucsandra Derian, RN) Frequency (min): 1.5-2 (Rucsandra Derian, RN) Quality: Mild/Moderate (Rucsandra Derian, RN) Duration (sec): 40-60 (Rucsandra Derian, RN) Resting Tone (Palpate): Relaxed (Rucsandra Derian, RN) Monitor Mode: External US (Rucsandra Derian, RN) FHR Baseline Rate : 140 (Rucsandra Derian, RN) Variability: Moderate 6-25 bpm (Rucsandra Derian, RN) Accelerations: None (Rucsandra Derian, RN) Decelerations: None (Rucsandra Derian, RN) Datetime: 11/24/2016 00:33 NBP Sys/Cara/Mean (mmHg): 127 (QS system process) : 82 (QS system process) : 99 (QS system process) Pulse: 54 (QS system process) LaborFlag: Antepartum (QS system process) Datetime: 11/24/2016 00:30 Monitor Mode: External; Palpation (Rucsandra Derian, RN) Frequency (min): 1.5-2 (Rucsandra Derian, RN) Quality: Mild/Moderate (Rucsandra Derian, RN) Duration (sec): 50-70 (Rucsandra Derian, RN) Resting Tone (Palpate): Relaxed (Rucsandra Derian, RN) Monitor Mode: External US (Rucsandra Derian, RN) FHR Baseline Rate : 140 (Rucsandra Derian, RN) Variability: Moderate 6-25 bpm (Rucsandra Derian, RN) Accelerations: None (Rucsandra Derian, RN) Decelerations: None (Rucsandra Derian, RN) Datetime: 11/24/2016 00:18 NBP Sys/Cara/Mean (mmHg): 123 (QS system process) : 76 (QS system process) : 94 (QS system process) Pulse: 55 (QS system process) LaborFlag: Antepartum (QS system process) Datetime: 11/24/2016 00:15 Monitor Mode: External; Palpation (Tara Menard, RN) Frequency (min): 1-2 (Tara Menard, RN) Quality: Mild/Moderate (Rucsandra Derian, RN) Duration (sec): 50-80 (Rucsandra Derian, RN) Resting Tone (Palpate): Relaxed (Rucsandra Derian, RN) Contraction Comments: abdomen palpates soft between ctx. (Rucsandra Derian, RN) Monitor Mode: External US (Taylorandra Menard, RN) FHR Baseline Rate : 140 (Rucsandra Derian, RN) Variability: Moderate 6-25 bpm (Rucsandra Derian, RN) Accelerations: None (Rucsandra Deiran, RN) Decelerations: None (Rucsandra Derian, RN) Datetime: 11/24/2016 00:04 NBP Sys/Cara/Mean (mmHg): 128 (QS system process) : 82 (QS system process) : 101 (QS system process) Pulse: 57 (QS system process) LaborFlag: Antepartum (QS system process) Datetime: 11/24/2016 00:00 Monitor Mode: External; Palpation (Tara Menard RN) Frequency (min): 1.5-2.5 (Tara Menard, GONZALES) Quality: Mild/Moderate (Tara Menard, RN) Duration (sec): 40-60 (Tara Menard, RN) Resting Tone (Palpate): Relaxed (Tara Menard RN) Contraction Comments: abdomen palpates soft between ctx. (Tara Menard, RN) Monitor Mode: External US (Tara Menard, RN) FHR Baseline Rate : 140 (Tara Menard, RN) Variability: Moderate 6-25 bpm (Tara Menard, RN) Accelerations: None (Tara Menard, RN) Decelerations: None (Tara Menard, RN) Pitocin (milliunit): Pitocin Increased to (milliunits) @ 12 (Tara Menard RN) Datetime: 11/23/2016 23:48 NBP Sys/Cara/Mean (mmHg): 125 (QS system process) : 77 (QS system process) : 96 (QS system process) Pulse: 56 (QS system process) LaborFlag: Antepartum (QS system process) Datetime: 11/23/2016 23:45 Monitor Mode: External; Palpation (Tara Menard, RN) Frequency (min): 1.5-2.5 (Tara Menard, RN) Quality: Mild/Moderate (Tara Menard, RN) Duration (sec): 40-60 (Tara Menard, RN) Resting Tone (Palpate): Relaxed (Tara Menard, RN) Monitor Mode: External US (Tara Menard, RN) FHR Baseline Rate : 140 (Tara Menard, RN) Variability: Moderate 6-25 bpm (Tara Menard, RN) Accelerations: None (Tara Menard, RN) Decelerations: Variable (Tara Menard, RN) Pitocin (milliunit): Pitocin Remains (milliunits) @ (Annotations: 10) (Tara Menard, RN) Datetime: 11/23/2016 23:40 Communication: Call/Page Placed to Provider (Tara Menard RN) Notification Reason: Status Update (Tara Menard RN) Communication Comments: Dr Beatty updated on pt status. Advised of FHTs,CTX, VS, pitocin remains at 10 milliunits/min, skag[place] bulb remains in place. No new orders at this time. (Tara Menard RN) Datetime: 11/23/2016 23:33 NBP Sys/Cara/Mean (mmHg): 123 (QS system process) : 77 (QS system process) : 95 (QS system process) Pulse: 60 (QS system process) LaborFlag: Antepartum (QS system process) Datetime: 11/23/2016 23:30 Monitor Mode: External; Palpation (Tara Menard, RN) Frequency (min): 1-2 (Tara Menard, RN) Quality: Mild/Moderate (Rurainaandra Menard, RN) Duration (sec): 40-70 (Tara Menard, RN) Resting Tone (Palpate): Relaxed (Tara Menard, RN) Monitor Mode: External US (Tara Menard, RN) FHR Baseline Rate : 140 (Taylorandra Menard, RN) Variability: Moderate 6-25 bpm (Rurainaandra Menard, RN) Accelerations: 10X10 (Tara Menard, RN) Decelerations: None (Tara Menard, RN) Pitocin (milliunit): Pitocin Remains (milliunits) @ (Annotations: 10) (Tara Menard, RN) Datetime: 11/23/2016 23:19 NBP Sys/Cara/Mean (mmHg): 116 (QS system process) : 75 (QS system process) : 91 (QS system process) Pulse: 59 (QS system process) LaborFlag: Antepartum (QS system process) Datetime: 11/23/2016 23:18 Maternal Comments: [place] emptied 600ml of clear yellow urine. (Rucsandra Derian, RN) Datetime: 11/23/2016 23:15 Monitor Mode: External; Palpation (Tara Menard, RN) Frequency (min): 1.5-2 (Rucsandra Menard, RN) Quality: Mild/Moderate (Rucsandra Derian, RN) Duration (sec): 40-70 (Rucsandra Derian, RN) Resting Tone (Palpate): Relaxed (Rucsandra Menard, RN) Monitor Mode: External US (Taylorandra Menard, RN) FHR Baseline Rate : 135 (Rucsandra Derian, RN) Variability: Moderate 6-25 bpm (Rucsandra Derian, RN) Accelerations: None (Rucsandra Derian, RN) Decelerations: None (Rucsandra Derian, RN) Pitocin (milliunit): Pitocin Remains (milliunits) @ (Annotations: 10) (Rucsandra Derian, RN) Datetime: 11/23/2016 23:12 Temperature (F): 98.1 (Tara Menard RN) Temperature (C): 36.7 (QS system process) LaborFlag: Antepartum (QS system process) Datetime: 11/23/2016 23:03 NBP Sys/Cara/Mean (mmHg): 115 (QS system process) : 62 (QS system process) : 81 (QS system process) Pulse: 55 (QS system process) LaborFlag: Antepartum (QS system process) Datetime: 11/23/2016 23:00 Monitor Mode: External; Palpation (Tara Menard RN) Frequency (min): 1-2.5 (Tara Menard RN) Quality: Mild/Moderate (Tara Menard RN) Duration (sec): 50-70 (Tara Menard RN) Resting Tone (Palpate): Relaxed (Tara Menard, RN) Monitor Mode: External US (Tara Menard, RN) FHR Baseline Rate : 135 (Tara Menard, RN) Variability: Moderate 6-25 bpm (Tara Menard, RN) Accelerations: 15X15 (Tara Menard, RN) Decelerations: None (Tara Menard, RN) Pitocin (milliunit): Pitocin Remains (milliunits) @ (Annotations: 10) (Tara Menard, RN) Datetime: 11/23/2016 22:49 NBP Sys/Cara/Mean (mmHg): 119 (QS system process) : 68 (QS system process) : 88 (QS system process) Pulse: 56 (QS system process) LaborFlag: Antepartum (QS system process) Datetime: 11/23/2016 22:45 Monitor Mode: External; Palpation (Tara Menard RN) Frequency (min): 1.5-2 (Tara Menard RN) Quality: Mild/Moderate (Tara Menard RN) Duration (sec): 50-60 (Tara Menard RN) Resting Tone (Palpate): Relaxed (Tara Menard RN) Monitor Mode: External US (Tara Menard RN) FHR Baseline Rate : 135 (Tara Menard RN) Variability: Moderate 6-25 bpm (Tara Menard RN) Accelerations: 15X15 (Tara Menard RN) Decelerations: None (Tara Menard RN) Maternal Comments: pt sleeping (Tara Menard RN) Pitocin (milliunit): Pitocin Remains (milliunits) @ (Annotations: 10) (Tara Menard RN) Datetime: 11/23/2016 22:33 NBP Sys/Cara/Mean (mmHg): 120 (QS system process) : 76 (QS system process) : 92 (QS system process) Pulse: 59 (QS system process) LaborFlag: Antepartum (QS system process) Datetime: 11/23/2016 22:30 Monitor Mode: External; Palpation (Tara Menard, RN) Frequency (min): 1-2.5 (Tara Menard, RN) Quality: Mild/Moderate (Tara Menard, RN) Duration (sec): 50-70 (Tara Menard, RN) Resting Tone (Palpate): Relaxed (Tara Menard, RN) Monitor Mode: External US (Tara Menard, RN) FHR Baseline Rate : 140 (Tara Menard, RN) Variability: Moderate 6-25 bpm (Tara Menard, RN) Accelerations: None (Tara Menard, RN) Decelerations: None (Tara Menard, RN) Pitocin (milliunit): Pitocin Remains (milliunits) @ (Annotations: 10) (Tara Menard, RN) Datetime: 11/23/2016 22:19 NBP Sys/Cara/Mean (mmHg): 116 (QS system process) : 72 (QS system process) : 88 (QS system process) Pulse: 59 (QS system process) LaborFlag: Antepartum (QS system process) Datetime: 11/23/2016 22:18 Communication Comments: Dr Beatty on unit, strip reviewed. States to continue to increase the pitocin as tolerated by heart rate. (Tara Menard RN) Datetime: 11/23/2016 22:15 Monitor Mode: External; Palpation (Tara Menard RN) Frequency (min): 1-2 (Tara Menard RN) Quality: Mild/Moderate (Tara Menard RN) Duration (sec): 40-60 (Tara Menard RN) Resting Tone (Palpate): Relaxed (Tara Menard RN) Contraction Comments: abdomen palpates soft between ctx. (Tara Menard RN) Monitor Mode: External US (Tara Menard RN) FHR Baseline Rate : 140 (Tara Menard RN) Variability: Moderate 6-25 bpm (Tara Menard RN) Accelerations: None (Tara Menard RN) Decelerations: None (Tara Menard RN) Pitocin (milliunit): Pitocin Increased to (milliunits) @ 10 (Tara Menard RN) Medication Comments: Ancef 1gm infusing per order. Pt instructed on need for ABX due to prolonged rupture of membranes. Intended effects and possible side effects explained to pt, pt agrees and V/U. (Tara Menard RN) Instructional Method: Verbal; Patient Instructed; Family/Support Person Instructed; Verbalized Understanding (Tara Menard RN) Plan of Care: Plan of Care Discussed (Tara Menard RN) Datetime: 11/23/2016 22:05 Provider Reviewed Strip: Yes (Tara Menard RN) Strip Reviewed by: Dr Beatty (Tara Menard RN) Communication Comments: Dr Beatty on unit, strip reviewed. Advised of FHTs, CTX, pitocin at 8 milliunits/min. States to increase pitocin as tolerated by heart rate. (Tara Menard RN) Datetime: 11/23/2016 22:03 NBP Sys/Cara/Mean (mmHg): 112 (QS system process) : 70 (QS system process) : 86 (QS system process) Pulse: 59 (QS system process) LaborFlag: Antepartum (QS system process) Datetime: 11/23/2016 22:00 Monitor Mode: External; Palpation (Tara Menard, RN) Frequency (min): 1-2.5 (Tara Menard, RN) Quality: Mild/Moderate (Rucsandra Menard, RN) Duration (sec): 40-60 (Rucsandra Menard, RN) Resting Tone (Palpate): Relaxed (Tara Menard, RN) Monitor Mode: External US (Tara Menard, RN) FHR Baseline Rate : 145 (Rucsandra Menard, RN) Variability: Moderate 6-25 bpm (Rucsandra Derian, RN) Accelerations: None (Rucsandra Menard, RN) Decelerations: None (Rucsandra Menard, RN) Pain Scale: 0 (Rucsandra Menard, RN) Pain Presence: None/Denies (Rucsandra Derian, RN) Pain Type: N/A (Rucsandra Menard, RN) LaborFlag: Antepartum (QS system process) Datetime: 11/23/2016 21:49 NBP Sys/Cara/Mean (mmHg): 112 (QS system process) : 72 (QS system process) : 86 (QS system process) Pulse: 62 (QS system process) LaborFlag: Antepartum (QS system process) Datetime: 11/23/2016 21:45 Monitor Mode: External; Palpation (Taylorandra Menard, RN) Frequency (min): 1-1.5 (Rucsandra Menard, RN) Quality: Mild/Moderate (Rucsandra Derian, RN) Duration (sec): 40-60 (Rucsandra Derian, RN) Resting Tone (Palpate): Relaxed (Rucsandra Derian, RN) Monitor Mode: External US (Rucsandra Derian, RN) FHR Baseline Rate : 145 (Rucsandra Derian, RN) Variability: Moderate 6-25 bpm (Rucsandra Derian, RN) Accelerations: None (Rucsandra Derian, RN) Pitocin (milliunit): Pitocin Remains (milliunits) @ (Annotations: 8) (Rucsandra Derian, RN) Datetime: 11/23/2016 21:36 Maternal Comments: family at bedside, pt denies needs. (Rucsandra Derian, RN) Datetime: 11/23/2016 21:33 NBP Sys/Cara/Mean (mmHg): 113 (QS system process) : 74 (QS system process) : 88 (QS system process) Pulse: 64 (QS system process) LaborFlag: Antepartum (QS system process) Datetime: 11/23/2016 21:30 Monitor Mode: External; Palpation (Tara Menard RN) Frequency (min): 1-2 (Tara Menard RN) Quality: Mild/Moderate (Tara Menard RN) Duration (sec): 40-90 (Tara Menard RN) Resting Tone (Palpate): Relaxed (Tara Menard RN) Monitor Mode: External US (Tara Menard RN) FHR Baseline Rate : 135 (Tara Menard RN) Variability: Moderate 6-25 bpm (Tara Menard RN) Accelerations: 10X10 (Tara Menard RN) Decelerations: None (Tara Menard RN) Pitocin (milliunit): Pitocin Remains (milliunits) @ (Annotations: 8 ) (Rucsandra Derian, RN) Datetime: 11/23/2016 21:26 Temperature (F): 98.2 (Tara Menard, RN) Temperature (C): 36.8 (QS system process) LaborFlag: Antepartum (QS system process) Datetime: 11/23/2016 21:24 I/O Interventions: Clear Liquids Given (Hermancsharrietra Derian, RN) Datetime: 11/23/2016 21:20 NBP Sys/Cara/Mean (mmHg): 121 (QS system process) : 72 (QS system process) : 91 (QS system process) Pulse: 67 (QS system process) LaborFlag: Antepartum (QS system process) Datetime: 11/23/2016 21:18 NBP Sys/Cara/Mean (mmHg): 115 (QS system process) : 78 (QS system process) : 91 (QS system process) Pulse: 68 (QS system process) LaborFlag: Antepartum (QS system process) Datetime: 11/23/2016 21:15 Monitor Mode: External; Palpation (Tara Menard RN) Frequency (min): 1.5-2.5 (Tara Menard RN) Quality: Mild/Moderate (Tara Menard RN) Duration (sec): 40-70 (Tara Menard RN) Resting Tone (Palpate): Relaxed (Tara Menard RN) Monitor Mode: External US (Tara Menard RN) FHR Baseline Rate : 140 (Tara Menard RN) Variability: Moderate 6-25 bpm (Tara Corderoahan, RN) Accelerations: None (Tara Menard, RN) Decelerations: None (Taylorandra Menard, RN) Pitocin (milliunit): Pitocin Increased to (milliunits) @ 8 (Tara Menard, RN) Datetime: 11/23/2016 21:08 Monitor Interventions for UA: [place] Adjusted (Tara Menard, RN) Datetime: 11/23/2016 21:03 NBP Sys/Cara/Mean (mmHg): 120 (QS system process) : 73 (QS system process) : 92 (QS system process) Pulse: 62 (QS system process) LaborFlag: Antepartum (QS system process) Datetime: 11/23/2016 21:00 Monitor Mode: External; Palpation (Tara Menard RN) Frequency (min): 1.5-5 (Tara Menard RN) Quality: Mild/Moderate (Tara Menard RN) Duration (sec): 40-60 (Tara Menard RN) Resting Tone (Palpate): Relaxed (Tara Menard RN) Monitor Mode: External US (Tara Menard RN) FHR Baseline Rate : 140 (Tara Menard RN) Variability: Moderate 6-25 bpm (Tara Menard RN) Accelerations: None (Tara Menard RN) Decelerations: None (Tara Menard RN) Pain Scale: 0 (Tara Menard RN) Pain Presence: None/Denies (Tara Menard RN) Pain Type: N/A (Tara Menard RN) Pitocin (milliunit): Pitocin Remains (milliunits) @ (Annotations: 6) (Tara Menard RN) LaborFlag: Antepartum (QS system process) Datetime: 11/23/2016 20:48 NBP Sys/Cara/Mean (mmHg): 117 (QS system process) : 74 (QS system process) : 90 (QS system process) Pulse: 65 (QS system process) LaborFlag: Antepartum (QS system process) Datetime: 11/23/2016 20:45 Monitor Mode: External; Palpation (Rucsandra Derian, RN) Frequency (min): 2-5 (Rucsandra Derian, RN) Quality: Mild/Moderate (Rucsandra Derian, RN) Duration (sec): 40-120 (Rucsandra Derian, RN) Resting Tone (Palpate): Relaxed (Rucsandra Derian, RN) Monitor Mode: External US (Rucsandra Derian, RN) FHR Baseline Rate : 140 (Rucsandra Derian, RN) Variability: Moderate 6-25 bpm (Rucsandra Derian, RN) Accelerations: None (Rucsandra Derian, RN) Decelerations: None (Rucsandra Derian, RN) Pitocin (milliunit): Pitocin Remains (milliunits) @ (Annotations: 6 ) (Rucsandra Derian, RN) Datetime: 11/23/2016 20:35 Monitor Interventions for UA: [place] Adjusted (Rucsandra Derian, RN) Datetime: 11/23/2016 20:33 NBP Sys/Cara/Mean (mmHg): 120 (QS system process) : 74 (QS system process) : 92 (QS system process) Pulse: 65 (QS system process) LaborFlag: Antepartum (QS system process) Datetime: 11/23/2016 20:30 Monitor Mode: External; Palpation (Tara Menard RN) Frequency (min): 1.5-3 (Tara Menard RN) Quality: Mild/Moderate (Tara Menard RN) Duration (sec): 60-80 (Tara Menard RN) Resting Tone (Palpate): Relaxed (Tara Menard RN) Monitor Mode: External US (Tara Menard RN) FHR Baseline Rate : 140 (Tara Menard RN) Variability: Moderate 6-25 bpm (Tara Menard RN) Accelerations: 10X10 (Tara Menard RN) Decelerations: None (Rucsandra Derian, RN) Pitocin (milliunit): Pitocin Increased to (milliunits) @ 6 (Rucsandra Derian, RN) Datetime: 11/23/2016 20:28 Communication Comments: Dr Rogerio at bedside, strip reviewed. (Rucsandra Derian, RN) Datetime: 11/23/2016 20:26 Monitor Interventions for UA: [place] Adjusted (Rucsandra Derian, RN) Datetime: 11/23/2016 20:19 NBP Sys/Cara/Mean (mmHg): 120 (QS system process) : 74 (QS system process) : 93 (QS system process) Pulse: 67 (QS system process) LaborFlag: Antepartum (QS system process) Datetime: 11/23/2016 20:15 Monitor Mode: External; Palpation (Tara Menard RN) Frequency (min): 1-3.5 (Tara Menard RN) Quality: Mild/Moderate (Tara Menard RN) Duration (sec): 60-80 (Tara Menard RN) Resting Tone (Palpate): Relaxed (Tara Menard RN) Monitor Mode: External US (Tara Menard RN) FHR Baseline Rate : 140 (Tara Menard RN) Variability: Moderate 6-25 bpm (Tara Menard RN) Accelerations: None (Tara Menard RN) Decelerations: None (Tara Menard RN) Pain Scale: 0 (Tara Menard RN) Pain Presence: None/Denies (Tara Menard RN) Pain Type: N/A (Tara Menard RN) Pitocin (milliunit): Pitocin Remains (milliunits) @ (Annotations: 4 ) (Tara Menard RN) LaborFlag: Antepartum (QS system process) Datetime: 11/23/2016 20:08 Communication Comments: Dr Beatty on unit, strip reviewed. Advised of pitocin at 4 milliunits/min. No new orders. (Tara Menard RN) Datetime: 11/23/2016 20:03 NBP Sys/Cara/Mean (mmHg): 112 (QS system process) : 68 (QS system process) : 83 (QS system process) Pulse: 77 (QS system process) LaborFlag: Antepartum (QS system process) Datetime: 11/23/2016 20:00 Monitor Mode: External; Palpation (Tara Menard RN) Frequency (min): 1-4 (Tara Menard RN) Quality: Mild/Moderate (Rucsandra Derian, RN) Duration (sec): 60-80 (Rurainaandra Derian, RN) Resting Tone (Palpate): Relaxed (Rurainaandra Menard, RN) Monitor Mode: External US (Josuéra Menard, RN) FHR Baseline Rate : 145 (Taylorand Derian, RN) Variability: Moderate 6-25 bpm (Rucsandra Derian, RN) Accelerations: None (Rucsandra Derian, RN) Decelerations: None (Rurainaand Derian, RN) Pitocin (milliunit): Pitocin Increased to (milliunits) @ 4 (Rucsand Derian, RN) Datetime: 11/23/2016 19:55 I/O Interventions: Popsicle (Tara Menard, RN) Datetime: 11/23/2016 19:49 NBP Sys/Cara/Mean (mmHg): 105 (QS system process) : 68 (QS system process) : 82 (QS system process) Pulse: 70 (QS system process) LaborFlag: Antepartum (QS system process) Datetime: 11/23/2016 19:45 Monitor Mode: External; Palpation (Rucsandra Derian, RN) Frequency (min): 1.5-2 (Rucsandra Derian, RN) Quality: Mild/Moderate (Rucsandra Derian, RN) Duration (sec): 50-80 (Rucsandra Derian, RN) Resting Tone (Palpate): Relaxed (Rucsandra Derian, RN) Monitor Mode: External US (Rucsandra Derian, RN) FHR Baseline Rate : 145 (Rucsandra Derian, RN) Variability: Moderate 6-25 bpm (Rucsandra Derian, RN) Accelerations: None (Rucsandra Derian, RN) Decelerations: None (Rucsandra Derian, RN) Datetime: 11/23/2016 19:43 Maternal Comments: [place] emptied 500ml of clear yellow urine. (Rucsandra Derian, RN) Datetime: 11/23/2016 19:36 Patient Position/Activity: Left Lateral (Tara Menard RN) Datetime: 11/23/2016 19:33 NBP Sys/Cara/Mean (mmHg): 102 (QS system process) : 58 (QS system process) : 75 (QS system process) Pulse: 66 (QS system process) LaborFlag: Antepartum (QS system process) Datetime: 11/23/2016 19:30 Temperature (F): 98.0 (Tara Menard RN) Temperature (C): 36.7 (QS system process) Monitor Mode: External; Palpation (Tara Menard RN) Frequency (min): 1-2.5 (Tara Menard RN) Quality: Mild/Moderate (Tara Menard RN) Duration (sec): 50-90 (Tara Menard RN) Resting Tone (Palpate): Relaxed (Tara Menard RN) Monitor Mode: External US (Tara Menard RN) FHR Baseline Rate : 145 (Tara Menard RN) Variability: Moderate 6-25 bpm (Tara Menard RN) Accelerations: None (Tara Menard RN) Decelerations: None (Tara Menard RN) Level of Consciousness: Fully Conscious (Tara Menard RN) DTR's/Clonus: DTRs 1+; No Clonus (Tara Menard RN) Headache: Denies (Tara Menard RN) Breath Sounds, Left: Clear and Equal (Tara Menard RN) Breath Sounds, Right: Clear and Equal (Tara Menard RN) Nausea/Vomiting: Denies (Tara Menard RN) RUQ Epigastric Pain: Denies (Tara Menard RN) Pitocin (milliunit): Pitocin Remains (milliunits) @ 2 (Tara Menard RN) LaborFlag: Antepartum (QS system process) Datetime: 11/23/2016 19:18 NBP Sys/Cara/Mean (mmHg): 107 (QS system process) : 63 (QS system process) : 80 (QS system process) Pulse: 65 (QS system process) LaborFlag: Antepartum (QS system process) Datetime: 11/23/2016 19:15 Monitor Mode: External (Karmen Marhefka, RN) Frequency (min): 1-3 (Karmen Marhefka, RN) Quality: Mild (Karmen Marhefka, RN) Duration (sec): 50-100 (Karmen Marhefka, RN) Resting Tone (Palpate): Relaxed (Karmen Marhefka, RN) Monitor Mode: External US (Karmen Marhefka, RN) FHR Baseline Rate : 140 (Karmen Marhefka, RN) FHR Baseline Changes: No Baseline Change (Karmen Marhefka, RN) Variability: Moderate 6-25 bpm (Karmen Marhefka, RN) Accelerations: None (Karmen Marhefka, RN) Decelerations: Late (Karmen Marhefka, RN) Pitocin (milliunit): Pitocin Remains (milliunits) @ (Annotations: 2) (Karmen Marhefka, RN) Datetime: 11/23/2016 19:14 Communication Comments: Report given to Josiane Menard RN. Care relinquished @ this time. (Karmen Pickering RN) Datetime: 11/23/2016 19:04 NBP Sys/Cara/Mean (mmHg): 103 (QS system process) : 58 (QS system process) : 78 (QS system process) Pulse: 66 (QS system process) LaborFlag: Antepartum (QS system process) Datetime: 11/23/2016 19:00 Monitor Mode: External (Karmen Pickering RN) Frequency (min): 1-4 (Karmen Pickering RN) Quality: Mild (Karmen Pickering RN) Duration (sec): 60-100 (Karmen Pickering RN) Resting Tone (Palpate): Relaxed (Karmen Pickering RN) Monitor Mode: External US (Karmen Pickering RN) FHR Baseline Rate : 140 (Karmen Pickering RN) FHR Baseline Changes: No Baseline Change (Karmen Pickering RN) Variability: Moderate 6-25 bpm (Karmen Pickering RN) Accelerations: None (Karmen Pickering RN) Decelerations: Late (Karmen Pickering RN) Pitocin (milliunit): Pitocin Remains (milliunits) @ (Annotations: 2) (Karmen Pickering RN)
[2016-11-24] MEDS ORDERED: RINGERS SOLUTION,LACTATED 1,000 ML IV PRN (08:04)
[2016-11-24] MEDS: OXYCODONE-ACETAMINOPHEN 5-325 MG TABLET PO PRN ×3 (08:04→23:13)
[2016-11-24] MEDS: IBUPROFEN 800 MG TABLET PO SCH ×4 (08:26→23:13)
[2016-11-24] MEDS: PRENATAL VITAMIN W-O CA NO5/FE FUMARATE/FA CAPSULE PO SCH (11:05)
[2016-11-24] MEDS: DOCUSATE SODIUM 100 MG CAPSULE PO SCH ×2 (11:05→17:25)
--- NOTE | 2016-11-24 18:01 | L&D Current Admission ---
Current Admit Datetime Report Generated by CPN: 11/24/2016 18:00 ADMISSION INFORMATION Chief Complaint: at 37.0 with complaints of leaking of fluid that started around 0400 with occasional ctx. Pt denies bleeding. +FM. (11/23/2016 05:50:Tara Menard RN)
--- NOTE | 2016-11-24 18:01 | L&D General Admission ---
General Admit Datetime Report Generated by CPN: 11/24/2016 18:00 INFORMATION Patient Age: 20 (05/11/2016 16:18:QS system process) EDC: 12/14/2016 00:00 (10/31/2016 18:10:Marta Alberto RN) : 1 (10/31/2016 18:10:Jyoti Rodriguez RN) Para: 0 (10/31/2016 21:05:Jenny Muhammad) Term: 0 (10/31/2016 18:10:Krissy Morelos RN) : 0 (10/31/2016 18:10:Krissy Morelos RN) Spontaneous Abortions: 0 (10/31/2016 18:10:Krissy Morelos RN) Induced Abortions: 0 (10/31/2016 18:10:Krissy Morelos RN) Livin (10/31/2016 18:10:Krissy Morelos RN) Cesareans: 0 (10/31/2016 18:10:Krissy Morelos RN) VBACs: 0 (10/31/2016 18:10:Krissy Morelos RN) Ectopic: 0 (10/31/2016 18:10:Krissy Morelos RN) Multiple Births: 0 (10/31/2016 18:10:Krissy Morelos RN) Baby, Number in Womb: 1 (10/31/2016 21:05:Jenny Muhammad) CARE Primary Clamp Forklift Operator: [facility] (10/31/2016 18:10:Marta Alberto RN) Month of 1st Visit: 7 weeks (10/31/2016 18:10:Tara Menard RN) Adequate Care: Yes (10/31/2016 18:10:Tara Menard RN) Prepregnancy Weight (lb): 97 (10/31/2016 18:10:Krissy Morelos RN) Prepregnancy Weight (kg): 44.1 (10/31/2016 18:10:QS system process) Height (in): 60 (10/31/2016 18:18:QS system process) ALLERGIES Medication Allergy: No (10/31/2016 18:10:Marta Alberto RN) Medication Allergies: No Known Allergies (10/31/2016) (10/31/2016 18:16:QS system process) Latex Allergy: No Latex Allergies (10/31/2016 18:10:Marta Alberto RN) COMMUNICATION Primary Language: Trinidadian (10/31/2016 18:10:Marta Alberto RN) Medical Tx Preferred Language: Trinidadian (10/31/2016 18:10:Marta Alberto RN) Communication Barrier(s): None (10/31/2016 18:10:Krissy Morelos RN) DEMOGRAPHICS Address: [address] [place] [id number] (05/11/2016 16:18:QS system process) Zipcode: [address] (05/11/2016 16:18:QS system process) Home (05/11/2016 16:18:QS system process) SSN: [id number] (05/11/2016 16:18:QS system process) Next of Kin Name: JOSÉ ANTONIO PEÑA (05/11/2016 16:18:QS system process) Next of Kin (05/11/2016 16:18:QS system process) Next of Kin Relationship: SPO (05/11/2016 16:18:QS system process) Date of : 1995 (05/11/2016 16:18:QS system process) Marital Status: (05/11/2016 16:18:QS system process) Sex: Female (05/11/2016 16:18:QS system process) Race: (05/11/2016 16:18:QS system process) Ethnicity: Non- or (05/11/2016 16:18:QS system process) Taoism: Temple (05/11/2016 16:18:QS system process) DRUG AND ALCOHOL USE Alcohol: No (10/31/2016 18:10:Tara Menrad RN) Cigarettes: Former Smoker. [id number] (10/31/2016 18:10:Tara Menard RN) Marijuana: No (10/31/2016 18:10:Tara Menard RN) Cocaine: No (10/31/2016 18:10:Tara Menard RN) Other Illicit Drugs: No (10/31/2016 18:10:Tara Menard RN) VACCINE HISTORY Influenza Vaccine: Yes (10/31/2016 18:10:Tara Menard RN) Influenza Date: Oct 2016 (10/31/2016 18:10:Tara Menard RN) Pneumococcal Vaccine: No (10/31/2016 18:10:Tara Menard RN) Tetanus Vaccine: No (10/31/2016 18:10:Tara Menard RN) Tdap Vaccine: Yes (10/31/2016 18:10:Tara Menard RN) Tdap Date: Oct 2016 (10/31/2016 18:10:Tara Menard RN) Hepatitis B Vaccine: No (10/31/2016 18:10:Tara Menard RN) Feeding Preference: Breast (10/31/2016 18:10:Tara Menard RN) Benefit of Breast Feed Discussed: Yes (10/31/2016 18:10:Tara Menard RN) Circumcision: N/A (10/31/2016 18:10:Tara Menard RN) Classes Attended: No (10/31/2016 18:10:Tara Menard RN) Tubal Ligation: No (10/31/2016 18:10:Tara Menard RN) Tubal Authorization Signed: N/A (10/31/2016 18:10:Tara Menard RN) Consent: N/A (10/31/2016 18:10:Tara Menard RN) Consent Signed: N/A (10/31/2016 18:10:Tara Menard RN) Pain Management Plans: Epidural (10/31/2016 18:10:Tara Menard RN) Plans for Labor and Delivery: None (10/31/2016 18:10:Tara Menard RN) Support Person: José Antonio (10/31/2016 18:10:Tara Menard RN) Support Person Relationship: (10/31/2016 18:10:Tara Menard RN) Cultural/Spritual Practice: No (10/31/2016 18:10:Tara Menard RN) Spir/Cult Dietary Needs: No (10/31/2016 18:10:Tara Menard RN) LIVING SITUATION/DISCHARGE PLAN Living Arrangements: House (10/31/2016 18:10:Tara Menard RN) Adequate Access to:: Electric; Heat; Refrigeration; Plumbing/Running water; Phone; Transportation (10/31/2016 18:10:Tara Menard RN) WIC Program: Yes (10/31/2016 18:10:Tara Menard RN) Discharge Switch Technician Person: José Antonio (10/31/2016 18:10:Tara Menard RN) Person to Help after Discharge: José Antonio (10/31/2016 18:10:Tara Menard RN) Currently Using Commun Resources: Yes (10/31/2016 18:10:Tara Menard RN) Specify Current Resource Used: WIC (10/31/2016 18:10:Tara Menard RN) Outside Agency/Bunk House Worker: No (10/31/2016 18:10:Tara Menard RN) Car Seat for Discharge: Yes (10/31/2016 18:10:Tara Menard RN) Adoption Requested: No (10/31/2016 18:10:Tara Menard RN) Pt Contact w/ Post : N/A (10/31/2016 18:10:Tara Menard RN) LABS Blood Type: O Positive (10/31/2016 18:10:Marta Alberto RN) Antibody Screen: Negative (10/31/2016 18:10:Krissy Morelos RN) Rho(G) this : Not Applicable (10/31/2016 18:10:Krissy Morelos RN) Hemoglobin: 13.1 (11/23/2016 06:46:QS system process) Hematocrit: 37.7 (11/23/2016 06:46:QS system process) MCV: 89 (11/23/2016 06:46:QS system process) Group Beta Strep: Negative (10/31/2016 18:10:Krissy Morelos RN) Gonorrhea: Negative (10/31/2016 18:10:Krissy Morelos RN) Chlamydia: Negative (10/31/2016 18:10:Krissy Morelos RN) RPR/VDRL: Nonreactive (10/31/2016 18:10:Marta Alberto RN) HIV Results: Negative (10/31/2016 18:10:Krissy Morelos RN) Hepatitis B: Negative (10/31/2016 18:10:Krissy Morelos RN) Rubella: Immune (10/31/2016 18:10:Marta Alberto RN) OB/PREVIOUS HISTORY Previous Procedures: None (10/31/2016 18:10:Krissy Morelos RN) Current Procedures: Ultrasound; NST (10/31/2016 18:10:Krissy Morelos RN) History of Previous : No (10/31/2016 18:10:Krissy Morelos RN) History of Gestational Diabetes: No (10/31/2016 18:10:Tara Menard RN) History of PIH: No (10/31/2016 18:10:Tara Menard RN) History of Incompetent Cervix: No (10/31/2016 18:10:Krissy Morelos RN) History of Placenta Previa/Abrup: No (10/31/2016 18:10:Tara Menard RN) History of Macrosomia: No (10/31/2016 18:10:Tara Menard RN) History of IUGR: No (10/31/2016 18:10:Tara Menard RN) History of Hemorrhage: No (10/31/2016 18:10:Krissy Morelos RN) History of Loss/Stillborn: No (10/31/2016 18:10:Krissy Morelos RN) History of : No (10/31/2016 18:10:Krissy Morelos RN) History of D (Rh) Sensitization: No (10/31/2016 18:10:Krissy Morelos RN) History Recurrent Loss/Stillborn: No (10/31/2016 18:10:Krissy Morelos RN) History Depression/PP Depression: No (10/31/2016 18:10:Krissy Morelos RN) History of Uterine Anomaly/JESSICA: No (10/31/2016 18:10:Krissy Morelos RN) History of Infertility: No (10/31/2016 18:10:Krissy Morelos RN) History of ART Treatment: No (10/31/2016 18:10:Tara Menard RN) History of JESSICA: No (10/31/2016 18:10:Krissy Morelos RN) Comments Obstetrical History: G1-Current (10/31/2016 18:10:Krissy Morelos RN) MEDICAL HISTORY Med Hx Diabetes: No (10/31/2016 18:10:Tara Menard RN) Med Hx Hypertension: No (10/31/2016 18:10:Tara Menard RN) Med Hx Heart Disease: No (10/31/2016 18:10:Tara Menard RN) Med Hx Autoimmune Disorder: No (10/31/2016 18:10:Tara Menard RN) Med Hx Kidney Disease/UTI: Yes (10/31/2016 18:10:Tara Menard RN) Med Hx Neurologic/Epilepsy: No (10/31/2016 18:10:Tara Menard RN) Med Hx Psychiatric Disorders: No (10/31/2016 18:10:Tara Menard RN) Med Hx Hepatitis/Liver Disease: No (10/31/2016 18:10:Tara Menard RN) Med Hx Varicosities/Phlebitis: No (10/31/2016 18:10:Tara Menard RN) Med Hx Thyroid Dysfunction: No (10/31/2016 18:10:Tara Menard RN) Med Hx Trauma/Violence: No (10/31/2016 18:10:Tara Menard RN) Med Hx Blood Transfusion: No (10/31/2016 18:10:Tara Menard RN) Med Hx Pulmonary (Asthma,TB): No (10/31/2016 18:10:Tara Menard RN) Med Hx Breast: No (10/31/2016 18:10:Tara Menard RN) Med Hx PARK AIDE Surgery: No (10/31/2016 18:10:Tara Menard RN) Med Hx Hospitalization/Surgery: No (10/31/2016 18:10:Tara Menard RN) Med Hx Anesthetic Complications: No (10/31/2016 18:10:Tara Menadr RN) Med Hx Abnormal Pap Smear: No (10/31/2016 18:10:Tara Menard RN) Other Medical Diseases: No (10/31/2016 18:10:Tara Menard RN) Med Hx Significant Family Hx: No (10/31/2016 18:10:Tara Menard RN) Details of Med/Surg Hx: pre kidney infection (10/31/2016 18:10:Tara Menard RN) INFECTIOUS HISTORY Inf Hx Gonorrhea: No (10/31/2016 18:10:Tara Menard RN) Inf Hx Chlamydia: No (10/31/2016 18:10:Tara Menard RN) Inf Hx Syphilis: No (10/31/2016 18:10:Tara Menard RN) Inf Hx HIV/AIDS: No (10/31/2016 18:10:Tara Menard RN) Inf Hx Human Papilloma Virus: No (10/31/2016 18:10:Tara Menard RN) Inf Hx Pt/Partner Genital Herpes: No (10/31/2016 18:10:Tara Menard RN) Inf Hx Tuberculosis/Exposure: No (10/31/2016 18:10:Tara Menard RN) Inf Hx Hepatitis B,C: No (10/31/2016 18:10:Tara Menard RN) Inf Hx Rash or Viral Illness: No (10/31/2016 18:10:Tara Menard RN) GENETIC HISTORY Gen Hx Age >=35 at JULES: No (10/31/2016 18:10:Tara Menard RN) Gen Hx Thalassemia: No (10/31/2016 18:10:Tara Menard RN) Gen Hx Congenital Heart Defect: No (10/31/2016 18:10:Tara Menard RN) Gen Hx Neural Tube Defect: No (10/31/2016 18:10:Tara Menard RN) Gen Hx Down's Syndrome: No (10/31/2016 18:10:Tara Menard RN) Gen Hx Manuelito-Sachs: No (10/31/2016 18:10:Tara Menard RN) Gen Hx Andrew: No (10/31/2016 18:10:Tara Menard RN) Gen Hx Familial Dysautonomia: No (10/31/2016 18:10:Tara Menard RN) Gen Hx Sickle Cell Disease/Trait: No (10/31/2016 18:10:Tara Menard RN) Gen Hx Hemophilia/Blood Disorder: No (10/31/2016 18:10:Tara Menard RN) Gen Hx Muscular Dystrophy: No (10/31/2016 18:10:Tara Menard RN) Gen Hx Cystic Fibrosis: No (10/31/2016 18:10:Tara Menard RN) Gen Hx Huntingtons Chorea: No (10/31/2016 18:10:Tara Menard RN) Gen Hx Mental Retardation/Autism: No (10/31/2016 18:10:Tara Menard RN) Gen Hx Tested for Fragile X: No (10/31/2016 18:10:Tara Menard RN) Gen Hx Other Inher/Chromosomal: No (10/31/2016 18:10:Tara Menard RN) Gen Hx Maternal Metabolic DO: No (10/31/2016 18:10:Tara Menard RN) Gen Hx Pt Father or FOB Defect: No (10/31/2016 18:10:Tara Menard RN) Gen Hx Other Genetic History: No (10/31/2016 18:10:Tara Menard RN) Gen Hx Drugs/Meds since LMP: No (10/31/2016 18:10:Tara Menard RN)
--- NOTE | 2016-11-24 18:16 | L&D Flow Sheet ---
LD Flowsheet Datetime Report Generated by CPN: 11/24/2016 18:15 Datetime: 11/24/2016 06:15 Stage of : Recovery (Tara Menard, RN)
--- NOTE | 2016-11-24 18:16 | L&D Care Plan ---
LD CARE PLANS Datetime Report Generated by CPN: 11/24/2016 18:15 Datetime: 11/23/2016 06:29 Pain State: Risk For (Concetta Regan RN) Related To: Labor and Delivery Process; Surgical Procedure (Concetta Regan RN) Goal(s): Patients Pain will be Assessed and Managed; Patient will Verbalize Adequate Relief of Pain or the Ability to [place] with Current Pain (Concetta Regan RN) Interventions: Assess Pain Severity on Scale of 0 (None) to 5 (Severe); Assess Type, Location and Intensity of Pain Each Time Client Reports Discomfort and Notify Provider if Unusal Pain Develops; Encourage Proper Breathing and Relaxation Techniques; Offer Alternatives Such as Repositioning, Calm Environment, Massages, Diversional Activities, Ice Pack, Splinting, and Ambulation; Administer Analgesics as Ordered; Assist with Epidural Placement as Appropriate; Evaluate Therapeutic Effectiveness of Medication and Treatments (Concetta Regan RN) Outcome: Patient will Report Absence or Relief of Pain Consistent with Established Pain Goal (Concetta Regan RN) Status: Ongoing (Concetta Regan RN) Outcome: Patient will have a Decrease in Signs and Symptoms of Discomfort (Concetta Regan RN) Status: Ongoing (Concetta Regan RN) Outcome: Pain will be Controlled During Procedures (Concetta Regan RN) Status: Ongoing (Concetta Regan RN) Anxiety State: Risk For (Concetta Regan RN) Related To: Labor and Delivery Process; Surgical Procedure (Concetta Regan RN) Goal(s): Patient will have Decreased Anxiety and be able to Function at Acceptable Levels (Concetta Regan RN) Interventions: Assess Verbal and Nonverbal Behavioral Indicators of Anxiety; Assist Patient to Identify and Verbalize Symptoms of Anxiety; Identify and Demonstrate Techniques to Control Anxiety; Assist Patient with Coping Mechanisms to Manage Anxiety; Provide Theraputic Touch for the Patient; Explain to Patient, Using a Calm Reassuring Approach and Nonmedical Terms, All Activities, Procedures, and Concerns; Instruct Patient and Family about Post Discharge Care, Limitations, Symptoms to Report and Resources Available (Concetta Regan RN) Outcome: Patient will Identify, Verbalize and Demonstrate Techniques to Control Anxiety (Concetta Regan RN) Status: Ongoing (Concetta Regan RN) Outcome: Patient's Posture, Facial Expressions, Gestures and Activity Level will Reflect Decreased Anxiety (Concetta Regan RN) Status: Ongoing (Concetta Regan RN) Outcome: Patient will Verbalize a Sense of Control and/or Acceptance of the Situation (Concetta Regan RN) Status: Ongoing (Concetta Regan RN) Outcome: Patient will Identify and Utilize Support Person (Concetta Regan RN) Status: Ongoing (Concetta Regan RN) Knowledge Deficit State: Risk For (Concetta Regan RN) Related To: Labor and Delivery Process; Surgical Procedures (Concetta Regan RN) Goal(s): Patient will Accurately Verbalize Understanding of Plan of Care and Treatment; Patient and Family will Accurately Verbalize Understanding of the Disease Process (Concetta Regan RN) Interventions: Assess Motivation and Willingness of Patient/Family to Learn; Assess Preferred Learning Mode: One to One Instruction, Reading, Videos, Group Discussion or Demonstration; Assess Barriers to Learning: Pain, Emotional State, Language Barrier, Cognitive Impairment, Visual or Hearing Deficits; Assess Patient and Family Knowledge of Disease Process, Medications and Treatment; Discuss Therapy and/or Treatment Options, Describe Rationale Behind Management, Therapy and Treatment Recommendations; Instruct Patient and Family on Signs and Symptoms to Report; Instruct Patient and Family on Medication Effects and Side Effects; Provide Appropriate and Timely Education Using Multiple Techniques; Provide Patient and Family with Support Group Information and Resources; Give Clear and Thorough Explanations and Demonstrations (Concetta Regan RN) Outcome: Patient and Family will Verbalize Understanding of Condition, Treatment and Signs and Symptoms to Report (Concetta Regan RN) Status: Ongoing (Concetta Regan RN) Outcome: Patient will Identify Perceived Learning Needs and Express Motivation to Learn (Concetta Field, RN) Status: Ongoing (Concetta Regan RN) Outcome: Patient will Verbalize Understanding of Desired Content, and/or Performs Desired Skill Prior to Discharge (Concetta Regan RN) Status: Ongoing (Concetta Regan RN) Infection State: Risk For (Concetta Regan RN) Related To: Surgical Procedures; Prolonged Labor or Induction; Premature/Prolonged Rupture of Membranes (Concetta Regan RN) Goal(s): The Patient will be Free of Infection, Vital Signs Stable and Lab Work within Normal Parameters (Concetta Regan RN) Interventions: Instruct and Reinforce Proper Handwashing, Hygiene, and Care Techniques to Patient and Family; Monitor Vital Signs; Monitor Patient for the Following Signs of Infection: Fever, Abdominal Tenderness, Unusual Discharge; Monitor Aminiotic Fluid, Urine and Lochia for Color and Odor; Observe Wounds, Incisions and Invasive Line Sites for Redness, Drainage and Edema; Assess IV Sites per Hospital Policy; Monitor Lab and Test Results and Notify Provider of Abnormal Findings; Assess Nutritional Status and Promote Good Nutrition (Concetta Regan RN) Outcome: Patient will Remain Free of Infection (Concetta Regan RN) Status: Ongoing (Concetta Regan RN) Outcome: Infection will be Recognized Early to Allow for Prompt Treatment (Concetta Regan RN) Status: Ongoing (Concetta Regan RN) Outcome: Patient will have Vital Signs Within Expected Range (Concetta Regan RN) Status: Ongoing (Concetta Regan RN) Fluid Volume State: Risk For (Concetta Regan RN) Related To: Surgical Procedures; Prolonged Labor or Induction (Concetta Regan RN) Goal(s): Patient will Achieve and Maintain a Balanced Fluid Volume Status; Hemodynamically Stable (Concetta Regan RN) Interventions: Monitor Vital Signs; Auscultate Breath Sounds; Monitor Patient for Skin Turgor, Mucous Membranes, Dry Skin, Weakness, Headaches and Confusion; Provide Oral Fluids as Ordered; Initiate and Maintain Intravenous Fluids as Ordered; Monitor Intake and Output as Indicated Per Patient Status; Accurately Measure Blood Loss; Monitor Lab and Test Results as Obtained and Notify Provider of Abnormal Findings; Monitor Patient's Weight (Concetta Regan, GONZALES) Outcome: Patient will have Clear Lung Sounds (Concetta Regan RN) Status: Ongoing (Concetta Regan RN) Outcome: Patient will have Vital Signs within Expected Range (Concetta Regan, RN) Status: Ongoing (Concetta Regan RN) Outcome: Urine Output will be within Expected Range (Concetta Regan, RN) Status: Ongoing (Concetta Regan RN) Outcome: Patient will have Minimal Generalized or Upper Extremity Edema (Concetta Regan RN) Status: Ongoing (Concetta Regan, RN) Injury State: Risk For (Concetta Regan RN) Related To: Labor and Delivery Process; Anesthesia (Concetta Regan RN) Goal(s): Patient will Remain Free from Injury (Concetta Regan RN) Interventions: Monitoring as per Hospital Protocol; Assess Neurological Status; Perform Risk Assessment of Patients with Induction and ; Perform Fall Risk Assessment and Prevention per Hospital Protocol; Perform DVT Risk Assessment and Prophylaxis per Hospital Protocol; Ensure that Oxygen, Suction, and Resuscitation Medications and Equipment are Readily Available; Confirm Patient ID Prior to Procedure(s) and Medication Administration per Hospital Policy (Concetta Regan RN) Outcome: Successful Fall Risk Prevention (Concetta Regan RN) Status: Ongoing (Concetta Regan RN) Outcome: Patient will Deliver without Adverse [place] (Concetta Regan RN) Status: Ongoing (Concetta Regan RN) Outcome: Patient's Neurological Status will Remain Stable (Concetta Regan RN) Status: Ongoing (Concetta Regan RN) Impaired Skin Integrity State: Risk For (Concetta Regan RN) Related To: Vaginal Delivery; Surgical Procedures (Concetta Regan RN) Goal(s): Patient will Maintain Optimal Skin Integrity, Free of Breakdown, Injury or Infection (Concetta Regan RN) Interventions: Complete Screening for Pressure Ulcer Risk and Initiate Protocol per Hospital Policy; Monitor Site of Skin Impairment for Color Changes, Redness, Swelling, Warmth, Pain or Other Signs of Infection; Encourage and Assist with Position Changes; Monitor Patient's Mobility Status; Provide Adequate Nutrition and Fluids; Teach Patient Appropriate Hygienic Care; Teach Patient/Family Skin Care Management (Concetta Regan RN) Outcome: Patient will not have Evidence of Injury Such as Skin Breakdown, Scrapes, Cuts, or Bruising (Concetta Regan RN) Status: Ongoing (Concetta Regan RN) Outcome: Patient will Report Any Altered Sensation or Pain at Site of Skin Impairment (Concetta , RN) Status: Ongoing (Concetta Regan, RN) Outcome: Patients Incisions and Wounds will be without Signs or Symptoms of Infection (Concetta , RN) Status: Ongoing (Concetta Regan, RN) Parenting Impaired State: Not Applicable (Concetta Regan, RN) Nutrition State: Not Applicable (Concetta Regan, RN) Grieving State: Not Applicable (Concetta Regan, RN) Additional Care Plan State: Not Applicable (Concetta Field, RN)
--- NOTE | 2016-11-25 06:01 | L&D Current Admission ---
Current Admit Datetime Report Generated by CPN: 11/25/2016 06:00 ADMISSION INFORMATION Chief Complaint: at 37.0 with complaints of leaking of fluid that started around 0400 with occasional ctx. Pt denies bleeding. +FM. (11/23/2016 05:50:Tara Menard RN)
--- NOTE | 2016-11-25 06:01 | L&D General Admission ---
General Admit Datetime Report Generated by CPN: 11/25/2016 06:00 INFORMATION Patient Age: 20 (05/11/2016 16:18:QS system process) EDC: 12/14/2016 00:00 (10/31/2016 18:10:Marta Alberto RN) : 1 (10/31/2016 18:10:Jyoti Rodriguez RN) Para: 0 (10/31/2016 21:05:Jenny Muhammad) Term: 0 (10/31/2016 18:10:Krissy Morelos RN) : 0 (10/31/2016 18:10:Krissy Morelos RN) Spontaneous Abortions: 0 (10/31/2016 18:10:Krissy Morelos RN) Induced Abortions: 0 (10/31/2016 18:10:Krissy Morelos RN) Livin (10/31/2016 18:10:Krissy Morelos RN) Cesareans: 0 (10/31/2016 18:10:Krissy Morelos RN) VBACs: 0 (10/31/2016 18:10:Krissy Morelos RN) Ectopic: 0 (10/31/2016 18:10:Krissy Morelos RN) Multiple Births: 0 (10/31/2016 18:10:Krissy Morelos RN) Baby, Number in Womb: 1 (10/31/2016 21:05:Jenny Muhammad) CARE Primary Patent Searcher: [facility] (10/31/2016 18:10:Marta Alberto RN) Month of 1st Visit: 7 weeks (10/31/2016 18:10:Tara Menard RN) Adequate Care: Yes (10/31/2016 18:10:Tara Menard RN) Prepregnancy Weight (lb): 97 (10/31/2016 18:10:Krissy Morelos RN) Prepregnancy Weight (kg): 44.1 (10/31/2016 18:10:QS system process) Height (in): 60 (10/31/2016 18:18:QS system process) ALLERGIES Medication Allergy: No (10/31/2016 18:10:Marta Alberto RN) Medication Allergies: No Known Allergies (10/31/2016) (10/31/2016 18:16:QS system process) Latex Allergy: No Latex Allergies (10/31/2016 18:10:Marta Alberto RN) COMMUNICATION Primary Language: Bolivian (10/31/2016 18:10:Marta Alberto RN) Medical Tx Preferred Language: Bolivian (10/31/2016 18:10:Marta Alberto RN) Communication Barrier(s): None (10/31/2016 18:10:Krissy Morelos RN) DEMOGRAPHICS Address: [address] [place] [id number] (05/11/2016 16:18:QS system process) Zipcode: [address] (05/11/2016 16:18:QS system process) Home (05/11/2016 16:18:QS system process) SSN: [id number] (05/11/2016 16:18:QS system process) Next of Kin Name: JOSÉ ANTONIO PEÑA (05/11/2016 16:18:QS system process) Next of Kin (05/11/2016 16:18:QS system process) Next of Kin Relationship: SPO (05/11/2016 16:18:QS system process) Date of : 1995 (05/11/2016 16:18:QS system process) Marital Status: (05/11/2016 16:18:QS system process) Sex: Female (05/11/2016 16:18:QS system process) Race: (05/11/2016 16:18:QS system process) Ethnicity: Non- or (05/11/2016 16:18:QS system process) Moravian: Holiness (05/11/2016 16:18:QS system process) DRUG AND ALCOHOL USE Alcohol: No (10/31/2016 18:10:Tara Menard RN) Cigarettes: Former Smoker. [id number] (10/31/2016 18:10:Tara Menard RN) Marijuana: No (10/31/2016 18:10:Tara Menard RN) Cocaine: No (10/31/2016 18:10:Tara Menard RN) Other Illicit Drugs: No (10/31/2016 18:10:Tara Menard RN) VACCINE HISTORY Influenza Vaccine: Yes (10/31/2016 18:10:Tara Menard RN) Influenza Date: Oct 2016 (10/31/2016 18:10:Tara Menard RN) Pneumococcal Vaccine: No (10/31/2016 18:10:Tara Menard RN) Tetanus Vaccine: No (10/31/2016 18:10:Tara Menard RN) Tdap Vaccine: Yes (10/31/2016 18:10:Tara Menard RN) Tdap Date: Oct 2016 (10/31/2016 18:10:Tara Menard RN) Hepatitis B Vaccine: No (10/31/2016 18:10:Tara Menard RN) Feeding Preference: Breast (10/31/2016 18:10:Tara Menard RN) Benefit of Breast Feed Discussed: Yes (10/31/2016 18:10:Tara Menard RN) Circumcision: N/A (10/31/2016 18:10:Tara Menard RN) Classes Attended: No (10/31/2016 18:10:Tara Menard RN) Tubal Ligation: No (10/31/2016 18:10:Tara Menard RN) Tubal Authorization Signed: N/A (10/31/2016 18:10:Tara Menard RN) Consent: N/A (10/31/2016 18:10:Tara Menard RN) Consent Signed: N/A (10/31/2016 18:10:Tara Menard RN) Pain Management Plans: Epidural (10/31/2016 18:10:Tara Menard RN) Plans for Labor and Delivery: None (10/31/2016 18:10:Tara Menard RN) Support Person: José Antonio (10/31/2016 18:10:Tara Menard RN) Support Person Relationship: (10/31/2016 18:10:Tara Menard RN) Cultural/Spritual Practice: No (10/31/2016 18:10:Tara Menard RN) Spir/Cult Dietary Needs: No (10/31/2016 18:10:Tara Menard RN) LIVING SITUATION/DISCHARGE PLAN Living Arrangements: House (10/31/2016 18:10:Tara Menard RN) Adequate Access to:: Electric; Heat; Refrigeration; Plumbing/Running water; Phone; Transportation (10/31/2016 18:10:Tara Menard RN) WIC Program: Yes (10/31/2016 18:10:Tara Menard RN) Discharge Amusement Machine Mechanic Person: José Antonio (10/31/2016 18:10:Tara Menard RN) Person to Help after Discharge: José Antonio (10/31/2016 18:10:Tara Menard RN) Currently Using Commun Resources: Yes (10/31/2016 18:10:Tara Menard RN) Specify Current Resource Used: WIC (10/31/2016 18:10:Tara Menard RN) Outside Agency/Evaporative Cooler Installer: No (10/31/2016 18:10:Tara Menard RN) Car Seat for Discharge: Yes (10/31/2016 18:10:Tara Menard RN) Adoption Requested: No (10/31/2016 18:10:Tara Menard RN) Pt Contact w/ Post : N/A (10/31/2016 18:10:Tara Menard RN) LABS Blood Type: O Positive (10/31/2016 18:10:Marta Alberto RN) Antibody Screen: Negative (10/31/2016 18:10:Krissy Morelos RN) Rho(G) this : Not Applicable (10/31/2016 18:10:Krissy Morelos RN) Hemoglobin: 13.1 (11/23/2016 06:46:QS system process) Hematocrit: 37.7 (11/23/2016 06:46:QS system process) MCV: 89 (11/23/2016 06:46:QS system process) Group Beta Strep: Negative (10/31/2016 18:10:Krissy Morelos RN) Gonorrhea: Negative (10/31/2016 18:10:Krissy Morelos RN) Chlamydia: Negative (10/31/2016 18:10:Krissy Morelos RN) RPR/VDRL: Nonreactive (10/31/2016 18:10:Marta Alberto RN) HIV Results: Negative (10/31/2016 18:10:Krissy Morelos RN) Hepatitis B: Negative (10/31/2016 18:10:Krissy Morelos RN) Rubella: Immune (10/31/2016 18:10:Marta Alberto RN) OB/PREVIOUS HISTORY Previous Procedures: None (10/31/2016 18:10:Krissy Morelos RN) Current Procedures: Ultrasound; NST (10/31/2016 18:10:Krissy Morelos RN) History of Previous : No (10/31/2016 18:10:Krissy Morelos RN) History of Gestational Diabetes: No (10/31/2016 18:10:Tara Menard RN) History of PIH: No (10/31/2016 18:10:Tara Menard RN) History of Incompetent Cervix: No (10/31/2016 18:10:Krissy Morelos RN) History of Placenta Previa/Abrup: No (10/31/2016 18:10:Tara Menard RN) History of Macrosomia: No (10/31/2016 18:10:Tara Menard RN) History of IUGR: No (10/31/2016 18:10:Tara Menard RN) History of Hemorrhage: No (10/31/2016 18:10:Krissy Morelos RN) History of Loss/Stillborn: No (10/31/2016 18:10:Krissy Morelos RN) History of : No (10/31/2016 18:10:Krissy Morelos RN) History of D (Rh) Sensitization: No (10/31/2016 18:10:Krissy Morelos RN) History Recurrent Loss/Stillborn: No (10/31/2016 18:10:Krissy Morelos RN) History Depression/PP Depression: No (10/31/2016 18:10:Krissy Morelos RN) History of Uterine Anomaly/JESSICA: No (10/31/2016 18:10:Krissy Morelos RN) History of Infertility: No (10/31/2016 18:10:Krissy Morelos RN) History of ART Treatment: No (10/31/2016 18:10:Tara Menard RN) History of JESSICA: No (10/31/2016 18:10:Krissy Morelos RN) Comments Obstetrical History: G1-Current (10/31/2016 18:10:Krissy Morelos RN) MEDICAL HISTORY Med Hx Diabetes: No (10/31/2016 18:10:Tara Menard RN) Med Hx Hypertension: No (10/31/2016 18:10:Tara Menard RN) Med Hx Heart Disease: No (10/31/2016 18:10:Tara Menard RN) Med Hx Autoimmune Disorder: No (10/31/2016 18:10:Tara Menard RN) Med Hx Kidney Disease/UTI: Yes (10/31/2016 18:10:Tara Menard RN) Med Hx Neurologic/Epilepsy: No (10/31/2016 18:10:Tara Menard RN) Med Hx Psychiatric Disorders: No (10/31/2016 18:10:Tara Menard RN) Med Hx Hepatitis/Liver Disease: No (10/31/2016 18:10:Tara Menard RN) Med Hx Varicosities/Phlebitis: No (10/31/2016 18:10:Tara Menard RN) Med Hx Thyroid Dysfunction: No (10/31/2016 18:10:Tara Menard RN) Med Hx Trauma/Violence: No (10/31/2016 18:10:Tara Menard RN) Med Hx Blood Transfusion: No (10/31/2016 18:10:Tara Menard RN) Med Hx Pulmonary (Asthma,TB): No (10/31/2016 18:10:Tara Menard RN) Med Hx Breast: No (10/31/2016 18:10:Tara Menard RN) Med Hx QUARTER SUPERVISOR Surgery: No (10/31/2016 18:10:Tara Menard RN) Med Hx Hospitalization/Surgery: No (10/31/2016 18:10:Tara Menard RN) Med Hx Anesthetic Complications: No (10/31/2016 18:10:Tara Menard RN) Med Hx Abnormal Pap Smear: No (10/31/2016 18:10:Tara Menard RN) Other Medical Diseases: No (10/31/2016 18:10:Tara Menard RN) Med Hx Significant Family Hx: No (10/31/2016 18:10:Tara Menard RN) Details of Med/Surg Hx: pre kidney infection (10/31/2016 18:10:Tara Menard RN) INFECTIOUS HISTORY Inf Hx Gonorrhea: No (10/31/2016 18:10:Tara Menard RN) Inf Hx Chlamydia: No (10/31/2016 18:10:Tara Menard RN) Inf Hx Syphilis: No (10/31/2016 18:10:Tara Menard RN) Inf Hx HIV/AIDS: No (10/31/2016 18:10:Tara Menard RN) Inf Hx Human Papilloma Virus: No (10/31/2016 18:10:Tara Menard RN) Inf Hx Pt/Partner Genital Herpes: No (10/31/2016 18:10:Tara Menard RN) Inf Hx Tuberculosis/Exposure: No (10/31/2016 18:10:Tara Menard RN) Inf Hx Hepatitis B,C: No (10/31/2016 18:10:Tara Menard RN) Inf Hx Rash or Viral Illness: No (10/31/2016 18:10:Tara Menard RN) GENETIC HISTORY Gen Hx Age >=35 at JULES: No (10/31/2016 18:10:Tara Menard RN) Gen Hx Thalassemia: No (10/31/2016 18:10:Tara Menard RN) Gen Hx Congenital Heart Defect: No (10/31/2016 18:10:Tara Menard RN) Gen Hx Neural Tube Defect: No (10/31/2016 18:10:Tara Menard RN) Gen Hx Down's Syndrome: No (10/31/2016 18:10:Tara Menard RN) Gen Hx Manuelito-Sachs: No (10/31/2016 18:10:Tara Menard RN) Gen Hx Andrew: No (10/31/2016 18:10:Tara Menard RN) Gen Hx Familial Dysautonomia: No (10/31/2016 18:10:Tara Menard RN) Gen Hx Sickle Cell Disease/Trait: No (10/31/2016 18:10:Tara Menard RN) Gen Hx Hemophilia/Blood Disorder: No (10/31/2016 18:10:Tara Menard RN) Gen Hx Muscular Dystrophy: No (10/31/2016 18:10:Tara Menard RN) Gen Hx Cystic Fibrosis: No (10/31/2016 18:10:Tara Menard RN) Gen Hx Huntingtons Chorea: No (10/31/2016 18:10:Tara Menard RN) Gen Hx Mental Retardation/Autism: No (10/31/2016 18:10:Tara Menard RN) Gen Hx Tested for Fragile X: No (10/31/2016 18:10:Tara Menard RN) Gen Hx Other Inher/Chromosomal: No (10/31/2016 18:10:Tara Menard RN) Gen Hx Maternal Metabolic DO: No (10/31/2016 18:10:Tara Menard RN) Gen Hx Pt Father or FOB Defect: No (10/31/2016 18:10:Tara Menard RN) Gen Hx Other Genetic History: No (10/31/2016 18:10:Tara Menard RN) Gen Hx Drugs/Meds since LMP: No (10/31/2016 18:10:Tara Menard RN)
[2016-11-25] MEDS: IBUPROFEN 800 MG TABLET PO SCH ×3 (06:17→17:50)
[2016-11-25 07:28] LABS: HEMATOCRIT 27.3 % (36.0-47.0); HGB HCT DIFFERENCE 0.9; MEAN CORPUSCULAR HEMOGLOBIN 30.8 pg (27.0-33.4); MEAN CORPUSCULAR HGB CONC 34.5 g/dL (32.0-36.0); MEAN CORPUSCULAR VOLUME 89 fl (80-97); RED BLOOD COUNT 3.06 10^6/uL (3.72-5.28); RED CELL DISTRIBUTION WIDTH 12.4 % (11.5-14.0); WHITE BLOOD COUNT 12.7 10^3/uL (4.0-10.5)
[2016-11-25 07:37] LABS: HEMOGLOBIN 9.4 g/dL (12.0-15.5)
[2016-11-25] MEDS: OXYCODONE-ACETAMINOPHEN 5-325 MG TABLET PO PRN ×2 (08:50→13:14)
--- NOTE | 2016-11-25 10:13 | PDOC PROGRESS REPORT ---
Subjective-OB Subjective: Post Delivery Day: 1 21 year old. Denies any needs at this time, states lochia is stable, pain well controlled, passing gas, tolerating diet. Physical Exam (OB) Vital Signs: Temp Pulse Resp BP Pulse Ox 97.6 F 66 14 115/72 100 11/25/16 04:10 11/25/16 08:08 11/25/16 04:10 11/25/16 08:08 11/25/16 08:08 Intake & Output 11/24/16 11/25/16 11/26/16 06:59 06:59 06:59 Intake Total 1143 Output Total 925 Balance 218 - Dressing Removed: No - opsite Incision: Well Approximated - Lochia Lochia Amount: Scant < 10 ml Lochia Color: Rubra/Red - Abdomen Description: Soft, Round Hernia Present: No Fundal Description: Firm, Midline Fundal Height: u/u - u/2 Objective-Diagnostic Laboratory: 11/25/16 07:17 11/25/16 07:17 WBC 12.7 H RBC 3.06 L Hgb 9.4 L D Hct 27.3 L MCV 89 MCH 30.8 MCHC 34.5 RDW 12.4 Plt Count 116 L Assessment and Plan(PN) - Assessment and Plan (1) delivery delivered Is this a current diagnosis for this admission?: YesPlan: routine post op care progressive diet and ambulation (2) Acute blood loss anemia Is this a current diagnosis for this admission?: YesPlan: ferrous sulfate increase dietary iron - Time Spent with Patient Time with patient: Less than 15 minutes Critical Time spent with patient: Less than 15 minutes Smoking Education Provided: Over 3 minutes Medications reviewed and adjusted accordingly: Yes - Disposition Anticipated Discharge: Home Within: within 24 hours
[2016-11-25] MEDS: PRENATAL VITAMIN W-O CA NO5/FE FUMARATE/FA CAPSULE PO SCH (10:23)
[2016-11-25] MEDS: DOCUSATE SODIUM 100 MG CAPSULE PO SCH ×2 (10:23→17:50)
[2016-11-26] MEDS: OXYCODONE-ACETAMINOPHEN 5-325 MG TABLET PO PRN (00:01)
[2016-11-26] MEDS: IBUPROFEN 800 MG TABLET PO SCH ×3 (05:53→11:53)
[2016-11-26 08:44] VITALS: BP 110/69
[2016-11-26] MEDS: DOCUSATE SODIUM 100 MG CAPSULE PO SCH (10:12)
[2016-11-26] MEDS: PRENATAL VITAMIN W-O CA NO5/FE FUMARATE/FA CAPSULE PO SCH (10:12)
--- NOTE | 2016-11-26 11:03 | PDOC DISCHARGE SUMMARY ---
Final Diagnosis Discharge Date: 11/26/16 - Final Diagnosis (1) delivery delivered Is this a current diagnosis for this admission?: Yes (2) Acute blood loss anemia Is this a current diagnosis for this admission?: Yes Discharge Data - Discharge Medication Home Medications: Pnv with Ca,No.72/Iron/FA [Pnv Plus Multivit Tab] 1 each PO DAILY 10/31 Docusate Sodium [Colace 100 mg Capsule] 100 mg PO BID #60 capsule 11/26/16 Ferrous Sulfate 325 mg PO TID #90 tablet. 11/26/16 Ibuprofen [Motrin 800 mg Tablet] 800 mg PO Q6 #60 tablet 11/26/16 Oxycodone HCl/Acetaminophen [Percocet 5-325 mg Tablet] 2 tab PO Q4HP PRN #30 tablet 11/26/16 Gestational Age: 37.1 Reason(s) for Admission: PROM Procedures: NST Intrapartum Procedure(s): : Low Cervical, Transverse - Data Baby 1 Female at 1 minute: 7 at 5 minutes: 6 at 10 minutes: 9 Weight: 3280 kg Home with Mother: Yes Complications: No - Diagnosis Test Laboratory: Temp Pulse Resp BP Pulse Ox 98.2 F 83 16 110/69 99 11/26/16 09:57 11/26/16 09:57 11/26/16 09:57 11/26/16 08:24 11/26/16 09:57 11/23/16 11/23/16 11/25/16 05:40 06:46 07:17 RBC 4.26 3.06 L Hgb 13.1 9.4 L D Hct 37.7 27.3 L Urine Opiates Screen NEGATIVE - Discharge information/Instructions Discharge Activity: Activity As Tolerated, Balance Activity w/Rest, No Lifting Over 10 Pounds, No Lifting/Push/Pulling, Pelvic Rest, Slowly Increase Activity, No tub bath Discharge Diet: Regular Disposition: HOME, SELF-CARE Follow [facility] with: [facility] in: 1, Weeks
== END 2016-11-26 12:26 | disposition home or self-care (01) | DRG 765 ==
LOC: LC 05:23 → LR 06:27 → 2S 11-24 06:29
PROVIDERS: ADMIT Obstetrics & Gynecology; ATTEND Obstetrics & Gynecology
PROC: 3E0P7GC Introduction of Other Therapeutic Substance into Female Reproductive, Via Natural or Artificial Opening (ICD-10-PCS; 2016-11-23)
PROC: 4A1HXCZ Monitoring of Products of Conception, Cardiac Rate, External Approach (ICD-10-PCS; 2016-11-23)
PROC: 10D00Z1 Extraction of Products of Conception, Low, Open Approach (ICD-10-PCS; principal; 2016-11-24)
DX: O64.8XX0 Obstructed labor due to other malposition and malpresentation, not applicable or unspecified (principal); D62 Acute posthemorrhagic anemia; O42.02 Full-term premature rupture of membranes, onset of labor within 24 hours of rupture; O65.9 Obstructed labor due to maternal pelvic abnormality, unspecified; O99.02 Anemia complicating childbirth; O63.0 Prolonged first stage (of labor); Z87.891 Personal history of nicotine dependence; Z3A.37 37 weeks gestation of pregnancy; Z37.0 Single live birth
CPT/HCPCS: 1961; 36415; 80307; 81005; 84112; 85025; 85027; 86592; 86850; 86900; 86901; 94799; C9290; J0690; J1885; J2175; J2250; J2270; J2274; J2300; J2405; J2590; J3010; J3490; J7120; S0119

== ENCOUNTER 2019-10-19 10:18 | Inpatient (IN) | payer OTHER ==
[2019-10-19] MEDS ORDERED: MAGNESIUM SULFATE 4 GM/100 ML RTUPB IV ONE (10:40)
[2019-10-19] MEDS ORDERED: MAGNESIUM SULFATE 20 GM/500 ML RTUINJ IV ONE (10:40)
[2019-10-19] MEDS ORDERED: BETAMET ACET/BETAMET NA INJ 6 MG/1 ML ONE (10:40)
[2019-10-19 10:56] LABS: RBCS (WET MOUNT) 1+ RBCS SEEN; T.VAGINALIS (WET MOUNT) NO TRICHOMONAS SEEN; WBCS (WET MOUNT) FEW WBCS SEEN; YEAST (WET MOUNT) NO YEAST SEEN
--- NOTE | 2019-10-19 11:04 | Admission Physical ---
Datetime Report Generated by CPN: 10/19/2019 11:04 CURRENT ADMISSION Chief Complaint: Suspected Ruptured Membranes Indication for Induction: Not Applicable Admit Impression : , Intrauterine ; Ruptured Membranes Admit Plan: Admit to Unit; Initiate Labor Protocol ALLERGIES Medication Allergies: No Known Allergies (10/31/2016) OBSTETRICAL HISTORY : 2 Para: 1 Term: 1 : 0 SAB: 0 IAB: 0 Livin PHYSICAL EXAM General: Normal HEENT: Normal Neurologic: Normal Thyroid: Normal Heart: Normal Lungs: Normal Breast: Normal Back: Normal Abdomen: Normal Genitourinary Exam: Normal Extremities: Normal DTRs: Normal Pelvic Type: Adequate Vital Signs: Reviewed; Within Normal Limits MEMBRANES Pooling: Positive Membranes: Ruptured Amniotic Fluid Color: Clear FETUS A Monitoring: External US FHR- Baseline: 150 Variability: Moderate 6-25bpm Accelerations: 15X15 Decelerations: None FHR Category: Category I Admit Comment: Pooling noted on exam and further pooling with valsalva. Patient denies contractions at this time. d/w patient and on phone and with patient's family present that patient will need to remain hopitalized until delivery and that delivery would optimally be at 34 weeks unless she does go into spontaneous labor before. However, based on her history I feel that we should be able to get to 34 weeks. patient does desire a repeat c/section. Will get EFW today with sono. INFORMED CONSENT Signature: with User ID: [email or web address]
[2019-10-19 11:23] LABS: APPEARANCE,URINE SLIGHTLY-CLOUDY; BILIRUBIN,URINE NEGATIVE (NEGATIVE); COLOR,URINE YELLOW; GLUCOSE, URINE NEGATIVE (NEGATIVE); KETONES,URINE NEGATIVE (NEGATIVE); LEUKOCYTE ESTERASE,URINE NEGATIVE (NEGATIVE); NITRITE,URINE NEGATIVE (NEGATIVE); PROTEIN,URINE NEGATIVE (NEGATIVE); URINE SPECIFIC GRAVITY 1.013; UROBILINOGEN,URINE NEGATIVE mg/dL (<2.0)
[2019-10-19 11:48] LABS: URINE AMPHETAMINES SCREEN NEGATIVE; URINE BARBITURATES SCREEN NEGATIVE; URINE BENZODIAZEPINES SCREEN NEGATIVE; URINE COCAINE SCREEN NEGATIVE; URINE MARIJUANA (THC) SCREEN NEGATIVE; URINE METHADONE SCREEN NEGATIVE; URINE PHENCYCLIDINE SCREEN NEGATIVE
[2019-10-19] MEDS ORDERED: RINGERS SOLUTION,LACTATED 1,000 ML IV PRN ×2 (11:55→16:29)
[2019-10-19] MEDS ORDERED: PENICILLIN G-K 5 MILLION UNIT VIAL ONE (12:01)
[2019-10-19] MEDS ORDERED: PENICILLIN G-K 5 MILLION UNIT VIAL IV ONE (12:02)
[2019-10-19] MEDS ORDERED: AZITHROMYCIN INJ 500 MG VIAL IV ONE (12:02)
[2019-10-19 12:26] LABS: CHLAM PCR NOT DETECTED (NOT DETECT)
[2019-10-19] MEDS ORDERED: TERBUTALINE SULFATE INJ/PF 1 MG/1 ML SDV ONE (12:42)
[2019-10-19] MEDS ORDERED: TERBUTALINE SULFATE INJ/PF 1 MG/1 ML SDV SUBCUT ONE (12:45)
[2019-10-19 13:04] LABS: ABSOLUTE LYMPHOCYTES (AUTO) 1.3 10^3/uL (0.5-4.7); ABSOLUTE MONOCYTES (AUTO) 0.3 10^3/uL (0.1-1.4); ABSOLUTE NEUT (AUTO) 11.6 10^3/uL (1.7-8.2); BASOPHILS % (AUTO) 0.1 % (0-2); EOSINOPHILS % (AUTO) 0.3 % (0-6); HEMATOCRIT 35.8 % (36.0-47.0); HEMOGLOBIN 12.7 g/dL (12.0-15.5); LYMPHOCYTES % (AUTO) 9.8 % (13-45); MEAN CORPUSCULAR HEMOGLOBIN 31.5 pg (27.0-33.4); MEAN CORPUSCULAR HGB CONC 35.5 g/dL (32.0-36.0); MEAN CORPUSCULAR VOLUME 89 fl (80-97); MONOCYTES % (AUTO) 2.4 % (3-13); PLATELET COUNT 157 10^3/uL (150-450); RED BLOOD COUNT 4.03 10^6/uL (3.72-5.28); RED CELL DISTRIBUTION WIDTH 13.1 % (11.5-14.0); SEGMENTED NEUTROPHILS % (AUTO) 87.4 % (42-78); TOTAL CELLS COUNTED % (AUTO) 100 %; WHITE BLOOD COUNT 13.3 10^3/uL (4.0-10.5)
--- NOTE | 2019-10-19 13:07 | RADIOLOGY REPORT (SQ) ---
EXAM DESCRIPTION: U/S OB LIMITED COMPLETED DATE/TIME: 10/19/2019 11:55 am REASON FOR STUDY: rupture of membranes COMPARISON: No prior this TECHNIQUE: Limited transabdominal grayscale ultrasound for evaluation of specific requested obstetri valarie parameters. LIMITATIONS: None. FINDINGS: CERVICAL LENGTH: 2.4 cm. Closed. IVONNE: Largest pocket 3.8 x 3.2 cm. Total IVONNE 10.4 cm . FHR: 152 beats per minute. PRESENTATION: Cephalic. PLACENTA: Anterior grade 2 ANATOMY: No detailed assessment. Basic measurements generates an estimated gestational age of 32 weeks 2 days, weight 2017 2 g (52nd percentile). OTHER: No other significant findings. IMPRESSION: LIMITED OBSTETRICAL ULTRASOUND WITH MEASURED PARAMETERS DELINEATED ABOVE. Trimester of : Third trimester - 28 weeks to delivery. TECHNICAL DOCUMENTATION: JOB ID: [id number] [employer]- All Rights Reserved Reading location - IP/workstation name: ROSE MARIE
[2019-10-19] MEDS ORDERED: CITRIC ACID/SODIUM CITRATE ORAL SOLN 15 ML UDCUP ONE (15:06)
[2019-10-19] MEDS ORDERED: CEFAZOLIN 1 GM/D5W RTU 1 GM/50 ML RTUPB IV ONE (15:06)
[2019-10-19] MEDS ORDERED: OXYTOCIN 10 UNIT/ML VIAL ONE (15:26)
[2019-10-19] MEDS ORDERED: OXYTOCIN/NORMAL SALINE 20 UNIT/1,000 ML RTUINJ ONE (15:27)
[2019-10-19] MEDS ORDERED: FENTANYL CITRATE INJ/PF 100 MCG/2 ML AMPUL ONE (15:27)
[2019-10-19] MEDS ORDERED: EPHEDRINE SULFATE INJ 50 MG/1 ML AMPULE ONE (15:27)
[2019-10-19] MEDS ORDERED: ONDANSETRON HCL INJ/PF 4 MG/2 ML SDV ONE (15:27)
[2019-10-19] MEDS ORDERED: ACETAMINOPHEN 1,000 MG/100 ML RTUPB IV ONE (15:27)
[2019-10-19] MEDS ORDERED: KETOROLAC TROMETHAMINE INJ/PF 30 MG/1 ML SDV ONE (15:27)
[2019-10-19] MEDS ORDERED: MIDAZOLAM 2 MG/2 ML INJ ONE (15:27)
[2019-10-19] MEDS ORDERED: PHENYLEPHRINE HCL INJ/PF 10 MG/1 ML SDV ONE (15:27)
[2019-10-19] MEDS ORDERED: TRIAMCINOLONE ACETONIDE INJ 40 MG/1 ML VIAL INJ PRN (16:09)
[2019-10-19] MEDS ORDERED: TRIAMCINOLONE ACETONIDE INJ 40 MG/1 ML VIAL ONE (16:13)
[2019-10-19] MEDS ORDERED: PENICILLIN G-K 5 MILLION UNIT VIAL IV SCH (16:15)
[2019-10-19] MEDS ORDERED: MEASLES,MUMPS&RUBELLA VACC/PF 0.5 ML VIAL SUBCUT PRN (16:29)
[2019-10-19] MEDS ORDERED: ACETAMINOPHEN 1,000 MG/100 ML RTUPB IV PRN (16:29)
[2019-10-19] MEDS ORDERED: OXYCODONE-ACETAMINOPHEN 5-325 MG TABLET PO PRN (16:29)
[2019-10-19] MEDS ORDERED: OXYTOCIN/NORMAL SALINE 20 UNIT/1,000 ML RTUINJ IV PRN (16:29)
[2019-10-19] MEDS ORDERED: PROMETHAZINE HCL INJ 25 MG/1 ML VIAL IV PRN (16:29)
[2019-10-19] MEDS ORDERED: SIMETHICONE 80 MG TAB.CHEW PO PRN (16:29)
[2019-10-19] MEDS ORDERED: MORPHINE SULFATE 10 MG/ML INJ IV PRN (16:29)
[2019-10-19] MEDS ORDERED: ACETAMINOPHEN 325 MG TABLET PO PRN (16:29)
[2019-10-19] MEDS ORDERED: DIPH/PERTUSS(ACELL)/TETANUS VAC/PF 0.5 ML SYR (>=10YO) IM PRN (16:29)
--- NOTE | 2019-10-19 16:38 | Operative Report ---
Operative Report DATE OF SURGERY: 10/19/19 PREOPERATIVE DIAGNOSIS: IUP at 32 weeks and 2 days previous , premature rupture of membranes, laboring, transverse lie POSTOPERATIVE DIAGNOSIS: Same OPERATION: Repeat low transverse hysterotomy section SURGEON: VENTURA DURAN 1ST FURNITURE PACKER: DENYS MANRIQUE 2ND Press Bucker: SAMIA VICKERS ANESTHESIA: Spinal TISSUE REMOVED OR ALTERED: Placenta with umbilical cord, calcified areas of uterine hysterotomy site COMPLICATIONS: None INTRAOPERATIVE FINDINGS: Thickened keloid scar from previous incision. female infant, transverse lie rotated to cephalic, right arm before the head PROCEDURE: PROCEDURE IN DETAIL: The patient was taken to the operating room, prepared and draped in a normal sterile fashion in a supine position with a leftward tilt. A transverse skin incision was made with a scalpel and the old scar was excised. The incision was then carried through to the underlying layer of fascia with the same scalpel. The fascia was excised in the midline and extended laterally with Sumi. The fascia was then dissected from the rectus muscle sharply with Sumi and the rectus muscle was divided and the peritoneal cavity was entered sharply with the same Metzenbaum. With good visualization of the bladder and the uterus the bladder blade was inserted. The hysterotomy was nicked with a scalpel and extended laterally with surgeon finger fraction. The was then delivered atraumatically. The nose and mouth were suctioned with a suction bulb, the cord was clamped and cut and handed off to awaiting pediatricians. Cord blood was collected. The placenta was removed manually. The uterus was exteriorized and cleared of clots and debris. The hysterotomy endings were noted and the calcified areas were cut away using Metzenbaums . Were passed off the field to be taken to pathology. The hystero mich was closed with 0 Monocryl in a running, locked fashion. A second layer of the same suture was used to imbricate to ensure hemostasis. The uterus was returned to the abdomen and peritoneal cavity was cleared of clots and debris. The rectus muscle and peritoneum were repaired with mattress stitch of 2-0 Chromic. The fascia was closed with 0-Vicryl. The subcutaneous layer was closed with plain catgut and the skin was closed with 4-0 Vicryl. Incision was then injected with 40 mg of Kenalog steroid in the subcu for keloid prevention. the patient tolerated the procedure well. Sponge, lap, and needle counts correct x2 and the patient was taken to recovery in stable condition.
[2019-10-19] MEDS ORDERED: AZITHROMYCIN INJ 500 MG VIAL IV SCH (18:00)
[2019-10-19] MEDS: DOCUSATE SODIUM 100 MG CAPSULE PO SCH (18:45)
[2019-10-19] MEDS: IBUPROFEN 800 MG TABLET PO SCH (18:52)
[2019-10-19] MEDS: OXYCODONE-ACETAMINOPHEN 5-325 MG TABLET PO PRN (19:21)
--- NOTE | 2019-10-19 19:41 | Delivery Summary ---
Del Sum A-C Datetime Report Generated by CPN: 10/19/2019 19:40 DELIVERY PERSONNEL DELIVERY PERSONNEL: [id number] Delivery Doctor:: Bertha Beatty MD Labor and Delivery Nurse:: Sari Mienr RN Yarding Engineer:: Sari Miner RN Gill Box Operator/DOCUMENTATION SPEC: Etta Alexandra, BUTTER PRINTER Gill Box Operator/DOCUMENTATION SPEC: Roneyjim Noe, BUTTER PRINTER MATERNAL INFORMATION Delivery Anesthesia: Spinal Medications After Delivery: Pitocin Drip 20 Units/1000ml NSS Maternal Complications: Premature Rupture of Membranes LABOR SUMMARY EDC: 12/12/2019 00:00 No. Babies in Womb: 1 Labor Anesthesia: None LABOR INFORMATION Reason for Induction: Not Applicable Onset of Labor: 10/19/2019 10:15 Oxytocin: N/A Group B Beta Strep: unk Steroids Given: Partial Course Reason Steroids Not Administered: Not Applicable MEMBRANES Membranes Rupture Method: Spontaneous Rupture of Membranes: 10/19/2019 10:15 Length of Rupture (hr): 5.55 Amniotic Fluid Color: Clear Amniotic Fluid Amount: Moderate Amniotic Fluid Odor: None STAGES OF LABOR Stage 3 hr: 0 Stage 3 min: 1 Total Time in Labor hr: 5 Total Time in Labor min: 34 CSECTION DELIVERY Primary Indication: Breech Presentation Secondary Indication: Repeat Elective CSection Urgency: Emergency CSection Incidence: Repeat Labor: Labor Elective: N/A CSection Incision: Lower Uterine Transverse BABY A INFORMATION Infant Delivery Date/Time: 10/19/2019 15:48 Method of Delivery: Born in Route : No : N/A Forceps: N/A Vacuum Extraction: N/A Shoulder Dystocia : No PRESENTATION/POSITION BABY A Presentation: Cephalic Cephalic Presentation: Vertex Breech Presentation: N/A PLACENTA INFORMATION BABY A Placenta Delivery Time : 10/19/2019 15:49 Placenta Method of Delivery: Manual Removal Placenta Status: Delivered SCORES BABY A Heart Rate 1 min: >100 bpm Resp Effort 1 min: Good Cry Reflex Irritability 1 min: Cough or Sneeze or Pulls Away Muscle Tone 1 min: Active Motion Color 1 min: Body [place], Extremities Blue Resuscitation Effort 1 min: Tactile Stimulation SCORE 1 MIN: 9 Heart Rate 5 min: >100 bpm Resp Effort 5 min: Good Cry Reflex Irritability 5 min: Cough or Sneeze or Pulls Away Muscle Tone 5 min: Active Motion Color 5 min: Body [place], Extremities Blue Resuscitation Effort 5 min: Tactile Stimulation SCORE 5 MIN: 9 INFANT INFORMATION BABY A Gestational Age at Delivery: 32.2 Gestational Status: - <34 Weeks Outcome : Liveborn Infant Condition : Stable Sex: Female IDENTIFICATION BABY A Infant Verification Date/Time: 10/19/2019 16:13 ID Band Number: [id number] Mother's Name Verified: Yes RN Verifying Infant: Delma Miner, RN WEIGHT/LENGTH BABY A Infant Birthweight (gm): 2109 Infant Weight (lb): 4 Infant Weight (oz): 10 Infant Length (in): 18.00 Infant Length (cm): 45.72 CORD INFORMATION BABY A No. Cord Vessels: 3 Nuchal Cord : N/A Suction: None
[2019-10-19] MEDS: KETOROLAC TROMETHAMINE INJ/PF 30 MG/1 ML SDV IV SCH (22:34)
[2019-10-20] MEDS: OXYCODONE-ACETAMINOPHEN 5-325 MG TABLET PO PRN ×5 (02:43→22:20)
[2019-10-20] MEDS: KETOROLAC TROMETHAMINE INJ/PF 30 MG/1 ML SDV IV SCH ×2 (06:15→13:22)
[2019-10-20 07:42] LABS: HEMATOCRIT 33.2 % (36.0-47.0); HEMOGLOBIN 11.8 g/dL (12.0-15.5); MEAN CORPUSCULAR HEMOGLOBIN 31.9 pg (27.0-33.4); MEAN CORPUSCULAR HGB CONC 35.6 g/dL (32.0-36.0); MEAN CORPUSCULAR VOLUME 90 fl (80-97); PLATELET COUNT 157 10^3/uL (150-450); RED CELL DISTRIBUTION WIDTH 12.8 % (11.5-14.0)
[2019-10-20] MEDS: DOCUSATE SODIUM 100 MG CAPSULE PO SCH ×2 (10:24→17:49)
[2019-10-20] MEDS: PRENATAL VITAMIN W DHA CAPSULE PO SCH (10:24)
--- NOTE | 2019-10-20 10:38 | PDOC PROGRESS REPORT ---
Subjective-OB Progress Note for:: 10/20/19 Subjective: Pt is doing well, reports reg diet, with +flatus, light bleeding and voiding without difficulty. No concerns. She is ambulatory. Baby in NICU. Physical Exam (OB) Vital Signs: Temp Pulse Resp BP Pulse Ox 97.7 F 65 18 103/75 100 10/20/19 08:15 10/20/19 08:15 10/20/19 08:15 10/20/19 08:15 10/20/19 08:15 Intake & Output 10/19/19 10/20/19 10/21/19 06:59 06:59 06:59 Intake Total 1781 1000 Output Total 1200 Balance 581 1000 Weight 57.1 kg - Dressing Removed: No Incision: Dressing Closure Type: Sutures - Lochia Lochia Amount: Small 10-25 ml Lochia Color: Rubra/Red - Abdomen Description: Tender, Soft Hernia Present: No Fundal Description: Firm, Midline Fundal Height: u/3 - u/4 Objective-Diagnostic Laboratory: 10/20/19 06:49 10/19/19 10/19/19 10/19/19 10:25 12:47 12:47 WBC 13.3 H RBC 4.03 Hgb 12.7 Hct 35.8 L MCV 89 MCH 31.5 MCHC 35.5 RDW 13.1 Plt Count 157 Seg Neutrophils % 87.4 H Urine Color YELLOW Urine Appearance SLIGHTLY-CLOUDY Urine pH 8.0 Ur Specific [place] 1.013 Urine Protein NEGATIVE Urine Glucose (UA) NEGATIVE Urine Ketones NEGATIVE Urine Blood SMALL H Urine Nitrite NEGATIVE Ur Leukocyte Esterase NEGATIVE Urine WBC (Auto) 3 Urine RBC (Auto) 5 Blood Type O POSITIVE Antibody Screen NEGATIVE 10/20/19 06:49 WBC 18.0 H RBC 3.70 L Hgb 11.8 L Hct 33.2 L MCV 90 MCH 31.9 MCHC 35.6 RDW 12.8 Plt Count 157 Seg Neutrophils % Urine Color Urine Appearance Urine pH Ur Specific [place] Urine Protein Urine Glucose (UA) Urine Ketones Urine Blood Urine Nitrite Ur Leukocyte Esterase Urine WBC (Auto) Urine RBC (Auto) Blood Type Antibody Screen Assessment and Plan(PN) - Assessment and Plan (1) premature rupture of membranes (PPROM) with onset of labor after 24 hours of rupture in first trimester, antepartum Is this a current diagnosis for this admission?: Yes (2) Acute blood loss anemia Is this a current diagnosis for this admission?: Yes (3) delivery delivered Is this a current diagnosis for this admission?: Yes - Time Spent with Patient Time with patient: Less than 15 minutes Medications reviewed and adjusted accordingly: Yes - Disposition Anticipated Discharge: Home Within: within 24 hours, within 48 hours
[2019-10-20] MEDS: IBUPROFEN 800 MG TABLET PO SCH ×3 (13:22→23:33)
[2019-10-21] MEDS: KETOROLAC TROMETHAMINE INJ/PF 30 MG/1 ML SDV IV SCH ×2 (04:37→06:04)
[2019-10-21] MEDS: OXYCODONE-ACETAMINOPHEN 5-325 MG TABLET PO PRN ×2 (04:39→11:00)
[2019-10-21] MEDS: IBUPROFEN 800 MG TABLET PO SCH ×2 (06:27→11:00)
[2019-10-21] MEDS: DOCUSATE SODIUM 100 MG CAPSULE PO SCH (09:49)
[2019-10-21] MEDS: PRENATAL VITAMIN W DHA CAPSULE PO SCH (09:49)
--- NOTE | 2019-10-21 09:51 | PDOC DISCHARGE SUMMARY ---
Impression - Admit/DC Date/PCP Admission Date/Primary Care Provider: 10/19/19 10:43 VENTURA DURAN MD Discharge Date: 10/21/19 - Discharge Diagnosis (1) premature rupture of membranes (PPROM) with onset of labor after 24 hours of rupture in first trimester, antepartum Is this a current diagnosis for this admission?: Yes (2) delivery delivered Is this a current diagnosis for this admission?: Yes - Additional Information Discharge Diet: Regular Discharge Activity: Activity As Tolerated, Balance Activity w/Rest, No Lifting Over 10 Pounds, No Lifting/Push/Pulling, Pelvic Rest, No tub bath Referrals: [facility] [Provider Group] Prescriptions: Ibuprofen [Motrin 800 mg Tablet] 800 mg PO Q8HP PRN #60 tablet PRN Reason: Oxycodone HCl/Acetaminophen [Percocet 5-325 mg Tablet] 1 tab PO Q4HP PRN #30 tablet PRN Reason: Home Medications: Pnv,Calcium 72/Iron/Folic Acid [Pnv Plus Multivit Tab] 1 each PO DAILY 10/31/16 Ibuprofen [Motrin 800 mg Tablet] 800 mg PO Q8HP PRN #60 tablet 10/21/19 Oxycodone HCl/Acetaminophen [Percocet 5-325 mg Tablet] 1 tab PO Q4HP PRN #30 tablet 10/21/19 HPI Gestational Age: 32 Reason(s) for Admission: PROM Procedures: NST Intrapartum Procedure(s): : Low Cervical, Transverse Results Laboratory Results: WBC 18.0 10^3/uL (4.0-10.5) H 10/20/19 06:49 RBC 3.70 10^6/uL (3.72-5.28) L 10/20/19 06:49 Hgb 11.8 g/dL (12.0-15.5) L 10/20/19 06:49 Hct 33.2 % (36.0-47.0) L 10/20/19 06:49 MCV 90 fl (80-97) 10/20/19 06:49 MCH 31.9 pg (27.0-33.4) 10/20/19 06:49 MCHC 35.6 g/dL (32.0-36.0) 10/20/19 06:49 RDW 12.8 % (11.5-14.0) 10/20/19 06:49 Plt Count 157 10^3/uL (150-450) 10/20/19 06:49 Lymph % (Auto) 9.8 % (13-45) L 10/19/19 12:47 Graham % (Auto) 2.4 % (3-13) L 10/19/19 12:47 Eos % (Auto) 0.3 % (0-6) 10/19/19 12:47 Baso % (Auto) 0.1 % (0-2) 10/19/19 12:47 Absolute Neuts (auto) 11.6 10^3/uL (1.7-8.2) H 10/19/19 12:47 Absolute Lymphs (auto) 1.3 10^3/uL (0.5-4.7) 10/19/19 12:47 Absolute Monos (auto) 0.3 10^3/uL (0.1-1.4) 10/19/19 12:47 Absolute Eos (auto) 0.0 10^3/uL (0.0-0.6) 10/19/19 12:47 Absolute Basos (auto) 0.0 10^3/uL (0.0-0.2) 10/19/19 12:47 Seg Neutrophils % 87.4 % (42-78) H 10/19/19 12:47 Urine Color YELLOW 10/19/19 10:25 Urine Appearance SLIGHTLY-CLOUDY 10/19/19 10:25 Urine pH 8.0 (5.0-9.0) 10/19/19 10:25 Ur Specific [place] 1.013 10/19/19 10:25 Urine Protein NEGATIVE mg/dL (NEGATIVE) 10/19/19 10:25 Urine Glucose (UA) NEGATIVE mg/dL (NEGATIVE) 10/19/19 10:25 Urine Ketones NEGATIVE mg/dL (NEGATIVE) 10/19/19 10:25 Urine Blood SMALL (NEGATIVE) H 10/19/19 10:25 Urine Nitrite NEGATIVE (NEGATIVE) 10/19/19 10:25 Urine Bilirubin NEGATIVE (NEGATIVE) 10/19/19 10:25 Urine Urobilinogen NEGATIVE mg/dL (<2.0) 10/19/19 10:25 Ur Leukocyte Esterase NEGATIVE (NEGATIVE) 10/19/19 10:25 Urine WBC (Auto) 3 /HPF 10/19/19 10:25 Urine RBC (Auto) 5 /HPF 10/19/19 10:25 Squamous Epi Cells Auto 4 /HPF 10/19/19 10:25 Urine Mucus (Auto) RARE /LPF 10/19/19 10:25 Urine Ascorbic Acid NEGATIVE (NEGATIVE) 10/19/19 10:25 Membranes Rupture POSITIVE (NEGATIVE) H 10/19/19 10:35 Trichomonas (Wet Prep) NO TRICHOMONAS SEEN 10/19/19 10:36 Vaginal WBC FEW WBCS SEEN 10/19/19 10:36 Vaginal RBC 1+ RBCS SEEN 10/19/19 10:36 Vaginal Yeast NO YEAST SEEN 10/19/19 10:36 Urine Opiates Screen NEGATIVE 10/19/19 10:25 Urine Methadone Screen NEGATIVE 10/19/19 10:25 Ur Barbiturates Screen NEGATIVE 10/19/19 10:25 Ur Phencyclidine Scrn NEGATIVE 10/19/19 10:25 Ur Amphetamines Screen NEGATIVE 10/19/19 10:25 U Benzodiazepines Scrn NEGATIVE 10/19/19 10:25 Urine Cocaine Screen NEGATIVE 10/19/19 10:25 U Marijuana (THC) Screen NEGATIVE 10/19/19 10:25 Chlamydia DNA (PCR) NOT DETECTED (NOT DETECT) 10/19/19 10:37 N.gonorrhoeae DNA (PCR) NOT DETECTED (NOT DETECT) 10/19/19 10:37 Blood Type O POSITIVE 10/19/19 12:47 Antibody Screen NEGATIVE 10/19/19 12:47 Impressions: Obstetrics Ultrasound 10/19/19 00:00 IMPRESSION: LIMITED OBSTETRICAL ULTRASOUND WITH MEASURED PARAMETERS DELINEATED ABOVE. Trimester of : Third trimester - 28 weeks to delivery. Plan Plan of Treatment: follow up in 1 week at [facility] for incision check
[2019-10-21 10:01] VITALS: BP 119/62
== END 2019-10-21 11:05 | disposition home or self-care (01) | DRG 787 ==
LOC: LC 10:18 → LR 10:43 → 2S 17:45
PROVIDERS: ADMIT Obstetrics & Gynecology; ATTEND Obstetrics & Gynecology
PROC: 10D00Z1 Extraction of Products of Conception, Low, Open Approach (ICD-10-PCS; principal; 2019-10-19)
PROC: 0HB7XZZ Excision of Abdomen Skin, External Approach (ICD-10-PCS; 2019-10-19)
DX: O42.113 Preterm premature rupture of membranes, onset of labor more than 24 hours following rupture, third trimester (principal); D62 Acute posthemorrhagic anemia; O34.211 Maternal care for low transverse scar from previous cesarean delivery; O32.2XX0 Maternal care for transverse and oblique lie, not applicable or unspecified; N85.8 Other specified noninflammatory disorders of uterus; O90.81 Anemia of the puerperium; O32.1XX0 Maternal care for breech presentation, not applicable or unspecified; Z79.899 Other long term (current) drug therapy; Z3A.32 32 weeks gestation of pregnancy; Z37.0 Single live birth
CPT/HCPCS: 1961; 36415; 76815; 80307; 81001; 84112; 85025; 85027; 86592; 86850; 86900; 86901; 87081; 87210; 87491; 87591; 88305; 88307; 94799; J0131; J0456; J0690; J0702; J1885; J2250; J2270; J2370; J2405; J2540; J2590; J3010; J3105; J3301; J3475; J3490

== ENCOUNTER 2020-03-28 18:10 | Emergency (ER) | payer OTHER ==
[2020-03-28] MEDS ORDERED: ONDANSETRON HCL INJ/PF 4 MG/2 ML SDV IV ONE (19:35)
[2020-03-28] MEDS ORDERED: NORMAL SALINE 1000 ML 1,000 ML IV ONE (19:35)
--- NOTE | 2020-03-28 19:51 | ER Document Report ---
ED General - General Chief Complaint: Fever Stated Complaint: COUGH,SHORT OF BREATH, FEVER Time Seen by Provider: 03/28/20 19:18 Notes: CHIEF COMPLAINT: Multiple complaints HPI: 24-year-old female presenting to the emergency department with multiple complaints. Patient states she began having cough cold symptoms with shortness of breath last night. Patient developed sore throat. Patient had multiple episodes of nausea vomiting. Denies abdominal pain. Denies dysuria. States fever was up to 103 last night. Patient has 2 small children at home but states that none of the other individuals in the household are sick. ROS: See HPI - all other systems were reviewed and are otherwise negative Constitutional: Positive fever Eyes: no drainage, no blurred vision ENT: no runny nose, positive sore throat Cardiovascular: no chest pain Resp: no SOB, no cough GI: vomiting, no diarrhea, no abdominal pain : no dysuria Integumentary: no rash Allergy: no hives Musculoskeletal: Positive generalized myalgia Neurological: no numbness/tingling, no weakness MEDICATIONS: I agree with the patient medications as charted by the RN. ALLERGIES: I agree with the allergies as charted by the RN. PAST MEDICAL HISTORY/PAST SURGICAL HISTORY: Reviewed and agree as charted by RN. SOCIAL HISTORY: Reviewed and agree as charted by RN. FAMILY HISTORY: No significant familial comorbid conditions directly related to patient complaint EXAM: Reviewed vital signs as charted by RN. CONSTITUTIONAL: Alert and oriented and responds appropriately to questions. Well-appearing; well-nourished HEAD: Normocephalic; atraumatic EYES: PERRL; Conjunctivae clear, sclerae non-icteric ENT: normal nose; no rhinorrhea; moist mucous membranes; pharynx without lesions noted, no uvula edema or deviation, no tonsillar hypertrophy, phonation normal NECK: Supple without meningismus; non-tender; no cervical lymphadenopathy, no masses CARD: RRR; no murmurs, no clicks, no rubs, no gallops; symmetric distal pulses RESP: Normal chest excursion without splinting or tachypnea; breath sounds clear and equal bilaterally; no wheezes, no rhonchi, no rales, pulse oximetry 97% on room air not hypoxic ABD/GI: Normal bowel sounds; non-distended; soft, non-tender, no rebound, no guarding; no palpable organomegaly or masses. BACK: The back appears normal and is non-tender to palpation, there is no CVA tenderness EXT: Normal ROM in all joints; non-tender to palpation; no cyanosis, no effusions, no edema SKIN: Normal color for age and race; warm; dry; good turgor; no acute lesions noted NEURO: Moves all extremities equally; Motor and sensory function intact PSYCH: The patient's mood and manner are appropriate. Grooming and personal hygiene are appropriate. MDM: 24-year-old female with upper respiratory symptoms nausea vomiting no abdominal pain on exam. Symptoms are flulike in nature. Will obtain flu rapid strep and COVID. Will obtain chest x-ray. Given her nausea vomiting will hydrate patient obtain baseline screening labs including urinalysis TRAVEL OUTSIDE OF THE [place] IN LAST 30 DAYS: No - Related Data Allergies/Adverse Reactions: No Known Allergies Allergy (Unverified 10/31/16 18:16) Home Medications: zytec 40 mg daily Past Medical History - Social History Smoking Status: Never Smoker Chew tobacco use (# tins/day): No Frequency of alcohol use: Rare Drug Abuse: None Family History: Reviewed & Not Pertinent Past Surgical History: Reports: Hx Section - x'2, Hx Cholecystectomy Physical Exam - Vital signs Vitals: Temp Pulse Resp BP Pulse Ox 100.0 F 107 H 20 120/73 97 03/28/20 18:37 03/28/20 18:37 03/28/20 18:37 03/28/20 18:37 03/28/20 18:37 Course - Re-evaluation Re-evalutation: 03/28/20 22:[address] Collazo. Monospot was ordered and is negative. Rapid strep negative. Leukocytosis negative. Patient does have elevated T bili and liver functions which may be a product of her vomiting. Urine shows possible UTI, will discuss with patient whether she want treatment or culture. 03/28/20 22:51 I spoke with the patient at length. She does not wish treatment at this time which is culture on the urine. Patient is not . We spoke with the patient's lab results including her elevated liver functions. She is not having any abdominal pain on reexam has been tolerating oral fluids. This may be a viral etiology. She is aware that she is a person under investigation will quarantine at home until a negative cover test is resulted. I will place the patient on Zofran I did advise her to avoid Tylenol products. She will obtain a primary care provider for recheck of her liver functions within the week. She will return for onset of fever, abdominal pain, jaundice or worsening symptoms - Vital Signs Vital signs: Temp Pulse Resp BP Pulse Ox 100.1 F 107 H 20 120/73 97 03/28/20 18:38 03/28/20 18:37 03/28/20 18:37 03/28/20 18:37 03/28/20 18:37 - Laboratory Result Diagrams: 03/28/20 20:30 03/28/20 20:30 Laboratory results interpreted by me: 03/28/20 03/28/20 03/28/20 20:30 20:30 22:15 Lymph % (Auto) 11.1 L Seg Neutrophils % 79.2 H Sodium 136.2 L Total Bilirubin 2.9 H Direct Bilirubin 1.1 H AST 700 H ALT 360 H Alkaline Phosphatase 162 H Urine Protein 30 H Urine Ketones 80 H Urine Bilirubin SMALL H Urine Urobilinogen 4.0 H Ur Leukocyte Esterase SMALL H Discharge - Discharge Clinical Impression: Fever in adult, Elevated liver function tests Vomiting Qualifiers: Vomiting type: unspecified Vomiting Intractability: non-intractable Nausea presence: with nausea Qualified Code(s): R11.2 - Nausea with vomiting, unspecified Condition: Stable Disposition: HOME, SELF-CARE Additional Instructions: Continue to hydrate well at home. Take Zofran for nausea vomiting. Avoid Tylenol products. Urine culture has been ordered, you will get the results in the next 2 to 3 days. You are considered a person under investigation at this time. Self quarantine at home until you have a negative COVID test. It was noted today that your liver functions were elevated this can come from an acute viral process or vomiting. A hepatitis panel has been sent on you but has not yet resulted. If any of the results are positive you will be notified by the hospital. It is imperative that you obtain a primary care provider to recheck your liver function tests within a week. If you notice any yellowing of the skin, continued high fevers, onset of abdominal pain or recurrent vomiting return to the emergency department for reevaluation as discussed Prescriptions: Ondansetron [Zofran Odt 4 mg Tablet] 1 - 2 tab PO Q4H PRN #15 tab.rapdis PRN Reason: For Nausea/Vomiting Referrals: ERWIN BAPTISTE MD [ACTIVE STAFF] - Follow up as needed
--- NOTE | 2020-03-28 19:57 | RADIOLOGY REPORT (SQ) ---
EXAM DESCRIPTION: CHEST SINGLE VIEW IMAGES COMPLETED DATE/TIME: 03/28/2020 7:45 pm REASON FOR STUDY: cough fever COMPARISON: None. TECHNIQUE: Single frontal radiographic view of the chest acquired. NUMBER OF VIEWS: One view. LIMITATIONS: None. FINDINGS: LUNGS AND PLEURA: No pneumothorax. No consolidation or pleural effusion. MEDIASTINUM AND HILAR STRUCTURES: No contour abnormalities. HEART AND VASCULAR STRUCTURES: Heart normal size. BONES: No acute findings. HARDWARE: None in the chest. OTHER: No other significant finding. IMPRESSION: NO ACUTE FINDINGS. TECHNICAL DOCUMENTATION: JOB ID: [id number] [employer]- All Rights Reserved Reading location - IP/workstation name: [email or web address]
[2020-03-28 20:59] LABS: ABSOLUTE LYMPHOCYTES (AUTO) 0.5 10^3/uL (0.5-4.7); ABSOLUTE MONOCYTES (AUTO) 0.5 10^3/uL (0.1-1.4); ABSOLUTE NEUT (AUTO) 3.9 10^3/uL (1.7-8.2); BASOPHILS % (AUTO) 0.3 % (0-2); HEMATOCRIT 44.1 % (36.0-47.0); HEMOGLOBIN 15.4 g/dL (12.0-15.5); LYMPHOCYTES % (AUTO) 11.1 % (13-45); MEAN CORPUSCULAR HEMOGLOBIN 29.8 pg (27.0-33.4); MEAN CORPUSCULAR VOLUME 85 fl (80-97); MONOCYTES % (AUTO) 9.4 % (3-13); PLATELET COUNT 211 10^3/uL (150-450); RED BLOOD COUNT 5.17 10^6/uL (3.72-5.28); RED CELL DISTRIBUTION WIDTH 12.7 % (11.5-14.0); SEGMENTED NEUTROPHILS % (AUTO) 79.2 % (42-78); TOTAL CELLS COUNTED % (AUTO) 100 %; WHITE BLOOD COUNT 4.9 10^3/uL (4.0-10.5)
[2020-03-28 21:07] LABS: ALBUMIN 4.9 g/dL (3.5-5.0); ALKALINE PHOSPHATASE 162 U/L (38-126); ANION GAP 11 (5-19); ASPARTATE AMINO TRANSFERASE 700 U/L (14-36); BILIRUBIN,DIRECT 1.1 mg/dL (0.0-0.4); BILIRUBIN,TOTAL 2.9 mg/dL (0.2-1.3); BLOOD UREA NITROGEN 14 mg/dL (7-20); CALCIUM 9.6 mg/dL (8.4-10.2); CARBON DIOXIDE 23 mmol/L (22-30); CHLORIDE 102 mmol/L (98-107); GLUCOSE 75 mg/dL (75-110); POTASSIUM 4.3 mmol/L (3.6-5.0); TOTAL PROTEIN 7.9 g/dL (6.3-8.2)
[2020-03-28 21:52] LABS: A TYPE INFLUENZA AG NEGATIVE (NEGATIVE); B INFLUENZA AG NEGATIVE (NEGATIVE)
[2020-03-28 22:35] LABS: APPEARANCE,URINE SLIGHTLY-CLOUDY; BILIRUBIN,URINE SMALL (NEGATIVE); COLOR,URINE AMBER; GLUCOSE, URINE NEGATIVE (NEGATIVE); KETONES,URINE 80 mg/dL (NEGATIVE); LEUKOCYTE ESTERASE,URINE SMALL (NEGATIVE); NITRITE,URINE NEGATIVE (NEGATIVE); PROTEIN,URINE 30 mg/dL (NEGATIVE); URINE SPECIFIC GRAVITY 1.031
[2020-03-28 23:10] VITALS: BP 122/68
[2020-03-31 08:37] LABS: HEPATITS B SURFACE ANTIGEN Negative (Negative)
[2020-03-31 08:38] LABS: HEPATITIS C VIRUS ANTIBODY <0.1 s/co ratio (0.0-0.9)
== END 2020-03-28 23:11 | disposition home or self-care (01) ==
LOC: ER 18:10
DX: R50.9 Fever, unspecified (principal); R94.5 Abnormal results of liver function studies; R06.02 Shortness of breath; R11.2 Nausea with vomiting, unspecified; Z20.828 Contact with and (suspected) exposure to other viral communicable diseases
CPT/HCPCS: 99283; 96361; 96374; 36415; 87070; 87086; 87880; 85025; 87635; 81025; 86308; 80053; 81001; 80074; 87804; 71045; J2405; J7030; C9803